=== PATIENT | female | born 1960 | race Caucasian/White ===

== ENCOUNTER → 2020-04-03 11:49 | Outpatient (CLI) | payer OTHER, SELFPAY ==
--- NOTE | ~2020-04-03 | US_ITS ---
EXAMINATION: US thyroid DATE: 04/03/2020 12:10 INDICATION: Autoimmune thyroiditis TECHNIQUE: Multiple ultrasound images of the thyroid were obtained. COMPARISON: None. FINDINGS: The right thyroid lobe measures 2.5 x 0.8 x 0.8 cm. The left thyroid lobe measures 1.9 x 1.0 x 1.0 c m. No discrete nodules identified. There is coarsened echogenicity with normal vascular flow through out both thyroid lobes. IMPRESSION: 1. Small thyroid with coarsened echogenicity consistent with sequela of chronic thyroiditis. Reviewed, dictated and finalized at location A.
== END ==
PROVIDERS: PCP Nurse Practitioner Family; Visit Provider Nurse Practitioner Family
DX: E06.3 Autoimmune thyroiditis (principal)
CPT/HCPCS: 76536

== ENCOUNTER → 2020-11-05 10:21 | Outpatient (CLI) | payer OTHER, SELFPAY ==
--- NOTE | ~2020-11-05 | US_ITS ---
EXAMINATION: US abdomen limited DATE: 11/05/2020 10:52 INDICATION: Elevated liver enzymes TECHNIQUE: Multiple grayscale and Doppler ultrasound images of the abdomen were obtained. COMPARISON: None available FINDINGS: Bowel gas obscures visualization of the pancreas. The visualized portions of the pancreas a re unremarkable. The liver demonstrates increased echogenicity, heterogenous echotexture, and decreas ed through transmission. No surface nodularity. Normal hepatopetal flow in the main portal vein. Ther e are multiple stones in the gallbladder. There is no gallbladder wall thickening or pericholecystic fluid. The normal common bile duct measures 4 mm. There was no sonographic Jane sign. IMPRESSION: 1. Cholelithiasis without evidence of cholecystitis. 2. Diffuse hepatic steatosis. Reviewed, dictated and finalized at location A. WASHER
== END ==
PROVIDERS: PCP Family Medicine; Visit Provider Family Medicine
DX: R74.01 Elevation of levels of liver transaminase levels (principal); K80.20 Calculus of gallbladder without cholecystitis without obstruction; K76.0 Fatty (change of) liver, not elsewhere classified
CPT/HCPCS: 76705

== ENCOUNTER → 2021-02-18 10:29 | Outpatient (CLI) | payer OTHER, SELFPAY ==
--- NOTE | ~2021-02-18 | MM_ITS ---
EXAMINATION: MM screening barbara BI w cathy HISTORY: Screening mammogram TECHNIQUE: Craniocaudal and mediolateral oblique 3-D tomosynthesis images were obtained and synthetic 2-D images were generated. Bilateral rotated lateral cc views CAD analysis was submitted and interpr eted. COMPARISON: 10/18/2018, , 03/04/2016 bilateral digital screening mammogram examinations BREAST PARENCHYMAL COMPOSITION: There are scattered areas of fibroglandular density. FINDINGS: Bilateral mammographic asymmetries. Bilateral diagnostic mammography and bilateral breast ultrasound examination are recommended. IMPRESSION: 1. Bilateral mammographic asymmetries 2. Bilateral diagnostic mammography and breast ultrasound examination are recommended BI-RADS Category 0: Incomplete: Needs additional imaging evaluation. Reviewed, dictated and finalized at location A. IMPRESSION: 1. Bilateral mammographic asymmetries 2. Bilateral diagnostic mammography and breast ultrasound examination are recom mended BI-RADS Category 0: Incomplete: Needs additional imaging evaluation.
--- NOTE | ~2021-02-18 | DEXA_ITS ---
Bone Density Report Name: Francine Loera Age: 60 Sex: Female Ethnicity: White Date of : 1960 Indication: postmenopausal; screening for osteoporosis; height loss; Referring Provider: Teetee Lindsey Study: Bone densitometry was performed. Exam Date: February 18, 2021 Accession number: [id number] Bone Density: Region BMD T-score Z-score Classification AP Spine (L2, L3, L4) 1.025 -0.5 0.9 Normal Femoral Neck (Left) 0.793 -0.5 0.7 Normal Total Hip (Left) 0.990 0.4 1.3 Normal Femoral Neck (Right) 0.805 -0.4 0.8 Normal Total Hip (Right) 0.959 0.1 1.0 Normal Total Hip Mean 0.975 0.3 1.2 Normal World Health Organization criteria for BMD impression classify patients as: Normal (T-score at or above -1.0), Osteopenia (T-score between -1.0 and -2.5), or Osteoporosis (T-score at or below -2.5). 10-year Fracture Risk: FRAX not reported because: All T-scores for Spine Total, Hip Total, Femoral Neck at or above -1.0 Previous Exams: Region Exam Age BMD T-score BMD Change BMD Change Date g/cm2 vs Baseline vs Previous AP Spine(L2, L3, L4) 02/18/2021 60 1.025 -0.5 -0.044* 0.038* 02/15/2019 58 0.987 -0.8 -0.082* -0.061* 06/19/2016 56 1.047 -0.3 -0.022 -0.022 06/17/2014 54 1.069 -0.1 Total Hip(Left) 02/18/2021 60 0.990 0.4 -0.065* 0.021 02/15/2019 58 0.968 0.2 -0.086* -0.015 06/19/2016 56 0.984 0.3 -0.071* -0.071* 06/17/2014 54 1.054 0.9 Total Hip(Right) 02/18/2021 60 0.959 0.1 -0.058* 0.000 02/15/2019 58 0.960 0.1 -0.058* -0.017 06/19/2016 56 0.976 0.3 -0.041* -0.041* 06/17/2014 54 1.017 0.6 *Denotes significance at 95% confidence level, LSC for AP Spine = 0.022 g/cm2, LSC for Total Hip = 0.027 g/cm2 Clinical Information Provided by Patient: Has used the following medications: Vitamin D, Calcium, MTV, Levothyroxine Patient maximum height was 66.0 Menopause Age: 57 Onset of menses at age 13 Number of children 0 Impression: The patient has normal bone mass. No significant bone loss was observed. Discussion: BONE DENSITY IS ABOVE THE MINIMUM DESIRABLE LEVEL AT ALL SKELETAL SITES TESTED. This patient?s bone mineral density is above the minimum desirable level (T-score -1.0 or better) at all sites measured. The patient should follow a hea
== END ==
PROVIDERS: PCP Nurse Practitioner Family; Visit Provider Student in an Organized Health Care Education/Training Program
DX: Z12.31 Encounter for screening mammogram for malignant neoplasm of breast (principal); Z13.820 Encounter for screening for osteoporosis; Z78.0 Asymptomatic menopausal state; R92.8 Other abnormal and inconclusive findings on diagnostic imaging of breast
CPT/HCPCS: 77063; 77067; 77080

== ENCOUNTER → 2021-03-25 07:51 | Outpatient (CLI) | payer OTHER, SELFPAY ==
--- NOTE | ~2021-03-25 | MMUS_ITS ---
EXAMINATION: MM diagnostic barbara BI w cathy, US breast BI complete HISTORY: Follow-up breast asymmetries TECHNIQUE: Additional 3-D tomosynthesis images of the breasts were performed and synthetic 2-D images were generated. CAD analysis was submitted and interpreted. High resolution complete bilateral breas t ultrasound was performed. COMPARISON: Comparison to multiple prior studies sequentially, with oldest reviewed study dated 12/2015. BREAST PARENCHYMAL COMPOSITION: Breast composed of scattered areas of fibroglandular density. FINDINGS: MAMMOGRAPHIC FINDINGS: There are persistent scattered bilateral nodular densities in both breasts which are partially obscur ed by fibroglandular tissue. No suspicious calcifications or architectural distortion. ULTRASOUND: Right breast ultrasound: At 12:00, 1 cm from the nipple there is a 4 mm cyst. Near the arterial lobe there is a 4 mm cyst. At 11:00, 1 cm from the nipple, there is an irregular shaped hypoechoic mass me asuring 6 x 4 x 2 mm. Left breast ultrasound: At 1:00, 3 cm from the nipple, there is a 4 mm cyst. At 6:00, 3 cm from the n ipple, there is an oval circumscribed hypoechoic mass measuring 5 mm with parallel orientation, no po sterior features or internal vascularity, likely benign. IMPRESSION: 1. Irregular shaped hypoechoic 6 mm right breast mass at 11:00, 1 cm from the nipple. Ultrasound-guid ed right breast biopsy recommended. 2. Probable benign left breast mass at 6:00, 3 cm from the nipple. Six-month follow-up left breast ul trasound recommended. BI-RADS CATEGORY 4-SUSPICIOUS ABNORMALITY RECOMMENDATION: Ultrasound-guided right breast biopsy recommended. Reviewed, dictated and finalized at location A. IMPRESSION: 1. Irregular shaped hypoechoic 6 mm right breast mass at 11:00, 1 cm from the n ipple. Ultrasound-guided right breast biopsy recommended. 2. Probable benign left breast mass at 6:00, 3 cm from the nipple. Six-month fo llow-up left breast ultrasound recommended. BI-RADS CATEGORY 4-SUSPICIOUS ABNORMALITY RECOMMENDATION: Ultrasound-guided right breast biopsy recommended.
== END ==
PROVIDERS: PCP Nurse Practitioner Family; Visit Provider Student in an Organized Health Care Education/Training Program
DX: R92.8 Other abnormal and inconclusive findings on diagnostic imaging of breast (principal)
CPT/HCPCS: 76641; 77062; 77066; G0279

== ENCOUNTER 2023-02-17 08:03 | Outpatient (CLI) | payer OTHER, SELFPAY ==
[2023-02-17 09:01] LABS: Kit Draw Collected
== END 2023-02-17 08:04 | disposition home or self-care (01) ==
LOC: ANHGOSHLAB 08:09
PROVIDERS: PCP Family Medicine; Visit Provider Nurse Practitioner
DX: Z13.6 Encounter for screening for cardiovascular disorders (principal); Z13.220 Encounter for screening for lipoid disorders; E55.9 Vitamin D deficiency, unspecified
CPT/HCPCS: 36415

== ENCOUNTER 2023-07-20 08:00 | Outpatient (CLI) | payer OTHER, SELFPAY ==
[2023-07-21 11:15] LABS: Kit Draw Collected
== END 2023-07-20 08:01 | disposition home or self-care (01) ==
PROVIDERS: PCP Family Medicine; Visit Provider Family Medicine
DX: E06.3 Autoimmune thyroiditis (principal); E66.9 Obesity, unspecified; E78.5 Hyperlipidemia, unspecified; R73.03 Prediabetes; Z79.899 Other long term (current) drug therapy
CPT/HCPCS: 36415

== ENCOUNTER 2023-12-03 08:09 | Outpatient (CLI) | payer OTHER, SELFPAY ==
[2023-12-03 14:40] LABS: Kit Draw Collected
== END 2023-12-03 08:10 | disposition home or self-care (01) ==
PROVIDERS: PCP Family Medicine; Visit Provider Nurse Practitioner
DX: E06.3 Autoimmune thyroiditis (principal); E78.5 Hyperlipidemia, unspecified; R73.03 Prediabetes
CPT/HCPCS: 36415

== ENCOUNTER 2024-05-19 09:07 | Outpatient (CLI) | payer OTHER, SELFPAY ==
[2024-05-19 13:54] LABS: Alanine Aminotransferase 101 U/L (6-35); Albumin Level 4.4 g/dL (3.5-5.1); Alkaline Phosphatase 109 U/L (38-126); Anion Gap 10 mmol/L (4-12); Aspartate Amino Transferase 73 U/L (14-36); Blood Urea Nitrogen 15 mg/dL (7-17); Calcium 9.5 mg/dL (8.4-10.2); Carbon Dioxide 28 mmol/L (22-30); Chloride 100 mmol/L (98-107); Cholesterol 188 mg/dL (0-200); Estimated Glomerular Filt Rate > 60; Glucose 143 mg/dL (65-110); HDL Direct 47 mg/dL; Potassium 4.3 mmol/L (3.4-5.0); Sodium 138 mmol/L (137-145); Triglycerides 242 mg/dL (<150)
[2024-05-19 14:04] LABS: LDL Cholesterol Direct 107 mg/dL
[2024-05-19 14:35] LABS: Vitamin D 25 Hydroxy 36.6 ng/mL
[2024-05-19 14:35] LABS: Creatinine Urine 188.1 mg/dL
[2024-05-19 14:36] LABS: MALB Creatinine Ratio 11.6 mg/g (0-30); Microalbumin Urine Random 21.8 mg/L (0-16.7)
[2024-05-19 18:20] LABS: Hemoglobin A1C 7.1 % (<5.7)
== END 2024-05-19 09:08 | disposition home or self-care (01) ==
LOC: ANHGOSHLAB 09:09
PROVIDERS: PCP Family Medicine; Visit Provider Nurse Practitioner
DX: E06.3 Autoimmune thyroiditis (principal); E11.9 Type 2 diabetes mellitus without complications; E55.9 Vitamin D deficiency, unspecified; E78.5 Hyperlipidemia, unspecified
CPT/HCPCS: 36415; 80053; 80061; 82043; 82306; 83036; 84443

== ENCOUNTER 2024-11-10 07:09 | Day surgery (SDC) | payer OTHER, SELFPAY ==
[2024-09-28 14:46] VITALS: BMI 38.8
[2024-10-21 08:17] VITALS: BMI 38.2
--- NOTE | 2024-11-10 07:05 | P.HPUP_ITS ---
History and Physical Update Update Date/Time: 11/10/24 07:05 Patient seen and examined in pre-operative holding area. No interval change in medical history or symptoms. Patient recalls previous discussion of benefits and alternatives to procedure. Continues to desire to proceed with left lower eyelid lesion/mass excision and forehead lesion/mass excision. Reviewed procedure, post-op expectations and risks including but not limited to bleeding, infection, injury to nerve/vessel, vision changes or damage to eye or lacrimal duct, recurrence no change or worsening of symptoms. I discussed the possible use of assistants and their participation in the case. Patient stated underst anding and signed the consent form wishing to proceed.
--- NOTE | 2024-11-10 07:07 | PM.HPGS ---
History of Present Illness History of Present Illness Chief complaint: Mass Right Forehead, Lesion Left Lower Eyelid Narrative: Patient seen and examined in pre-operative holding area. No interval change in medical history or symptoms. Patient recalls previous discussion of benefits and alternatives to procedure. Continues to desire to proceed with left lower eyelid lesion/mass excision and forehead lesion/mass excision. Reviewed procedure, post-op expectations and risks including but not limited to bleeding, infection, injury to nerve/vessel, vision changes or damage to eye or lacrimal duct, recurrence no change or worsening of symptoms. I discussed the possible use of assistants and their participation in the case. Patient stated understanding and signed the consent form wishing to proceed. Review of Systems Review of Systems: All systems reviewed & are unremarkable except as noted in HPI and below PMFSH Past Medical History Medical History Allergies Abnormal Pap smear of cervix 11/16/20 ASCUS HPV neg Fatty liver Acid reflux Gallstones Gregory's disease Surgical History Surgical History History of nasal surgery History of tonsillectomy History of appendectomy Family History Family History Sibling Family history of thyroid disease Family history of migraine headaches Hypertension Asthma Grandparent Family history of thyroid disease Diabetes mellitus, Onset Age: 73 Hypertension Mother Diabetes mellitus Hypertension Cerebrovascular accident Father Hypertension, Onset Age: 74 Malignant neoplasm of prostate, Onset Age: 74 Alcohol abuse Social History Social History Smoking status: Never smoker Second hand tobacco smoke exposure: Yes Alcohol intake: current Drinks per week: 2 Substance use: never Substance use type: does not use Lack of Transportation: No Lack of Food: Never True Current Housing: I Have Housing Concerned About Future Housing: No Difficulty Paying Gas/Electric Bills: No Difficulty Paying for Meds: No Currently Unemployed: No Education: Master's Degree or Higher Difficulty w/ Childcare or Family Care: No Living arrangements: with family Additional living arrangements comments: and Mother Occupation/Education: retired Gender identity (if verbalized by the patient): Female Sexual Orientation (if Verbalized by the Patient): Straight or Heterosexual Spiritual care concerns: No Agree to blood products: Yes Meds Home Medications and Allergies Home Medications ?Medication ?Instructions ?Recorded ?Confirmed ?Type cetirizine 10 mg tablet (24Hour 10 mg PO DAILY 10/25/19 11/10/24 History Allergy) omega-3 fatty acids 1,000 mg 1,000 mg PO DAILY 10/25/19 11/10/24 History capsule (Fish Oil Concentrate) multivitamin (Daily Multi-Vitamin 1 tablet PO DAILY 11/16/20 11/10/24 History tablet) apple cider vinegar 300 mg tablet 480 mg PO .QD 07/21/22 11/10/24 History vitamin E (dl, acetate) 180 mg 180 mg PO DAILY 07/21/22 11/10/24 History (400 unit) capsule antiarthritic combination no.2 900 200 mg PO .daily 02/24/23 11/10/24 History mg tablet (glucosamine-chondroitin) pantoprazole 40 mg tablet,delayed 40 mg PO QAM #90 tabs 09/06/24 11/10/24 Rx release levothyroxine 137 mcg tablet See Rx Instructions .Route 09/19/24 11/10/24 Rx .COMPLEX #90 tabs metformin 500 mg tablet,extended See Rx Instructions .Route 09/19/24 11/10/24 Rx release 24 hr .COMPLEX #90 tabs azelastine 137 mcg-fluticasone 50 1 spray intranasal BID PRN allergy 10/21/24 11/10/24 History mcg/spray nasal spray symptoms inulin 1.5 gram chewable tablet 1.5 g PO DAILY 10/21/24 11/10/24 History tramadol 50 mg tablet 50 mg PO Q6H PRN pain #12 tabs 11/10/24 Rx Allergies Allergy/AdvReac Type Severity Reaction Status Date / Time erythromycin base Allergy Severe Gastrointestinal Verified 11/10/24 07:38 Upset Exam Narrative: unchanged Assessment and Plan Assessment and plan (1) Cyst of eyelid: Qualifiers: Eyelid: lower Laterality: left Qualified Code(s): H02.825 - Cysts of left lower eyelid Code(s): H02.829 - Cysts of unspecified eye, unspecified eyelid Status: Acute Assessment and Plan: cont as above (2) Skin neoplasm: Code(s): D49.2 - Neoplasm of unspecified behavior of bone, soft tissue, and skin Status: Acute (3) Neoplasm of uncertain behavior of skin: Code(s): D48.5 - Neoplasm of uncertain behavior of skin Status: Acute
--- NOTE | 2024-11-10 07:07 | W.PM.PROC2 ---
Procedure Note - Detailed Date of Procedure 11/10/24 Pre-op Diagnosis Mass Right Forehead, Lesion Left Lower Eyelid Post-op Diagnosis Same Procedure Performed excision left lower eyelid lesion and forehead lesion/mass Surgeon Miguel Morales MD Roofing Sales Representative jaime alamo pa-c Anesthesia MAC Description of Procedure Patient was seen in the preoperative holding area where the area of the forehead lesion and left lower medial eyelid cyst was marked. Consent form was signed. Patient was taken back to the operating room and placed on the stretcher in the supine position. Time-out was performed with Anesthesia, surgeon, and staff agreeing on patient's name, sites, and surgery to be performed. SCDs were placed on the lower extremities and inflated. Antibiotics were given IV. After anesthesia administered sedation I injected 4 cc of 1% lidocaine with epinephrine and 0.5% Marcaine plain amongst the 2 sites. I took my attention to the forehead where I made an elliptical incision around the protuberant mass through skin and dermis with a 15 blade scalpel. No subcutaneous component was identified and the mass was excised completely. bipolar cautery used for hemostasisThe Excess skin was excised from the medial and lateral edges for removal of dog ears. I undermined the skin edges. Closure was done with 5-0 Monocryl for dermis and subcuticular closure. diameter of lesion excision with margins was 1.1cm. length of closure 1.5cm Next I took my attention to the left medial lower eyelid cyst where I proceeded with making an elliptical incision around the thinned affected skin at base of the cyst through skin and dermis with a 15 blade scalpel. The lesion was removed this level and appeared to be above orbicularis muscle and no clear stalk identified. thin watery fluid was found withing the mass on excision. I attempted to use lacrimal probes to interrogate the inferior canaliculus but was either unsuccessful in passing the probe through the duct or the duct was not patent. No clear tract or involvement of the lacrimal duct was therefore appreciated. Bipolar cautery was used to cauterize the base of this resection site for hemostasis. I irrigated with normal saline. Closure was done with 5 0 fast-absorbing gut suture. diameter of mass and excision measured 6mm. A dressing of Mastisol, Steri-Strips, 4 x 4 and pressure dressing was applied to the forehead. opthalmic bacitracin, 4 x 4 and pressure dressing was applied to the left lower eyelid. The patient was awakened from anesthesia and transferred to the recovery room in stable condition. Complications: None Estimated blood loss: 2 cc Disposition: Patient tolerated the procedure well and will be going home later today. Jaime Alamo PA-C was essential for positioing, retraction, closure and dressing placement [facility] [place] Billing Surgery - Charge Forward: Surgery Billing ([id number] same for jaime adding modifier )
--- OUTSIDE RECORDS SUMMARY | 2024-11-10 07:28 | XMS_ITS | Referral Summary ---
Author Organization [facility] Address [address] [place] [address] Care Team Providers Care Account Solutions Analyst Name Role Phone LorenzoRadha APRN-MACHINE SET UP OPERATOR Primary Care Provider Source Comments [facility],non-owned Affiliates and Associated Physician Practices is amultiple site organization consisting of ambulatory clinics and hospital sitesin [place], [place], [place] and [place]. This disclosure is being madepursuant to the Care Everywhere program and may not contain all information available regarding this patient. Last updated 18.[facility] Allergies Active Allergy Reactions Criticality Noted Date Comments Cetirizine Hcl 07/23/2011 Erythromycin 01/01/2011 (?), (?), (?) Medications * Be aware that medications may not be up to date on this document. Alwaysverify current medications with the patient. Medication Sig Dispensed Refills Start Date End Date Status azelastine-fluticason e (DYMISTA) 137-50 MCG/ACT nasal spray [place] 1 puff into the nose BID. 1 bottles 1 06/23/2017 Active loratadine (CLARITIN) 10 MG tablet Take 10 mg by mouth DAILY. 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 Metabolic syndrome X 09/14/2019 Nasal congestion 05/08/2015 Chronic sinusitis 01/01/2011 Social History Tobacco Use Types Packs/Day Years Used Date Smoking Tobacco: Never Smokeless Tobacco: Never Alcohol Use Standard Drinks/Week Comments Yes 0 (1 standard drink = 0.6 oz pur e alcohol) Sex and Gender Information Value Date Recorded Sex Assigned at Not on file Gender Identity Not on file Sexual Orientation Not on file Last Filed Vital Signs Vital Sign Reading Time Taken Comments Blood Pressure 128/80 09/14/2019 2:40 PM STEEL FABRICATOR Pulse 92 09/14/2019 2:40 PM STEEL FABRICATOR Temperature - - Respiratory Rate 12 05/08/2015 9:14 AM CDT Oxygen Saturation 95% 09/14/2019 2:40 PM STEEL FABRICATOR Inhaled Oxygen Concentration - - Weight 112.9 kg (249 lb) 09/14/2019 2:40 PM STEEL FABRICATOR Height 167.6 cm (5' 6 ) 09/14/2019 2:40 PM STEEL FABRICATOR Body Mass Index 40.19 09/14/2019 2:40 PM STEEL FABRICATOR Plan of Treatment Not on file Care Teams Account Solutions Analyst Relationship Specialty Start Date End Date Radha Lorenzo, CANCER PROGRAM CONSULTANT-MACHINE SET UP OPERATOR [address] [place] [phone] PCP - General 11/14/19
--- OUTSIDE RECORDS SUMMARY | 2024-11-10 07:28 | XMS_ITS | Patient Health Summary ---
Author Organization [facility] Address [address] [place] [address] Care Team Providers Care Cdl Instructor Name Role Phone BjRadha APRN-HAND BOOKBINDER Primary Care Provider Note from [facility],non-owned Affiliates and Associated Physician Practices is amultiple site organization consisting of ambulatory clinics and hospital sitesin [place], [place], [place] and [place]. This disclosure is being madepursuant to the Care Everywhere program and may not contain all information available regarding this patient. Last updated 18.[facility] Allergies * Cetirizine Hcl * Erythromycin((?), (?), (?)) Medications * Be aware that medications may not be up to date on this document. Alwaysverify current medications with the patient. * azelastine-fluticasone (DYMISTA) 137-50 MCG/ACT nasal spray(Started 06/23/2017) [place] 1 puff into the nose BID. 1 refill left * loratadine (CLARITIN) 10 MG tablet(Started 06/23/2017) Take 10 mg by mouth DAILY. * Fexofenadine-Pseudoephedrine (JOSE-D 24 HOUR PO) Take 1 tablet by mouth once daily Active Problems Problem Noted Date Diagnosed Date [...] Comments Blood Pressure 128/80 09/14/2019 2:40 PM MUD MILL TENDER Pulse 92 09/14/2019 2:40 PM MUD MILL TENDER Temperature - - Respiratory Rate 12 05/08/2015 9:14 AM CDT Oxygen Saturation 95% 09/14/2019 2:40 PM MUD MILL TENDER Inhaled Oxygen Concentration - - Weight 112.9 kg (249 lb) 09/14/2019 2:40 PM MUD MILL TENDER Height 167.6 cm (5' 6 ) 09/14/2019 2:40 PM MUD MILL TENDER Body Mass Index 40.19 09/14/2019 2:40 PM MUD MILL TENDER Procedures * PATHOLOGY/GENETICS HISTORICAL-ONBASE(Performed 07/19/2009) * PATHOLOGY/GENETICS HISTORICAL-ONBASE(Performed 07/19/2009) Results * PATHOLOGY/GENETICS HISTORICAL-ONBASE (07/19/2009) Only the most recent of2 resultswithin the time period is included. 07/19/2009 Historical Provider LAB - CHEMISTRY O RDERABLES [facility] Care Teams Cdl Instructor Relationship Specialty Start Date End Date Radha Lorenzo, RESTAURANT ATTENDANT-HAND BOOKBINDER [address] [place] [address] PCP - General 11/14/19
--- OUTSIDE RECORDS SUMMARY | 2024-11-10 07:29 | XMS_ITS | Continuity of Care Document ---
Author Organization [facility] Address [address] [place] [address] Phone Care Team Providers Care Automotive Diagnostic Technician Name Role Phone Karena Johnson Unavailable Unavailable Advance Directives Directive Yes / No Effective Date File Name No Information Encounters Encounter Description Practice Location Reason(s) For Visit Diagnoses Date Provider Providers Copied on Encounter [facility], [address], [place], [place], [id number], [place] tel:[phone] [facility] No Information Mar-1 0-200 3 Elizabeth Thurston. [address] , [address], [place], [address], [place]. tel:[phone] Family History Family Member Type Diagnosis Age At Onset No Information Payers Payer name Insurance type Covered republican ID Authoriza tion(s) No Information Social History Type Description Quantity Date Captured Comments Sex Female Smoking Status No Information Chief Complaint And Reason For Visit No Information Reason For Referral Reason For Referral No Information History Of Present Illness Encounter Date Complaint History Of Prese nt Illness No Information Functional Status Date Functional Assessmen t No Information Instructions Date Instruction Additional Infor mation No Information Assessments Type Assessment Date No Information Patient Care Teams Name Effective Dates (start - stop) Status Members No Information
--- OUTSIDE RECORDS SUMMARY | 2024-11-10 07:29 | XMS_ITS | Clinical Summary ---
Author Organization [facility] Address [address] [place] [address] Care Team Providers Care Geological Science Teacher Name Role Phone LorenzoRadha APRN-HOUSETRAILER SERVICER Primary Care Provider Source Comments [facility],non-owned Affiliates and Associated Physician Practices is amultiple site organization consisting of ambulatory clinics and hospital sitesin [place], [place], [place] and [place]. This disclosure is being madepursuant to the Care Everywhere program and may not contain all information available regarding this patient. Last updated 18.[facility] [email or web address] Allergies Active Allergy Reactions Criticality Noted Date Comments Cetirizine Hcl 07/23/2011 Erythromycin 01/01/2011 (?), (?), (?) Medications * Be aware that medications may not be up to date on this document. Alwaysverify current medications with the patient. Medication Sig Dispensed Refills Start Date End Date Status azelastine-fluticason e (DYMISTA) 137-50 MCG/ACT nasal spray [place] 1 puff into the nose BID. 1 [...] Comments Blood Pressure 128/80 09/14/2019 2:40 PM PEST MANAGEMENT SUPERVISOR Pulse 92 09/14/2019 2:40 PM PEST MANAGEMENT SUPERVISOR Temperature - - Respiratory Rate 12 05/08/2015 9:14 AM CDT Oxygen Saturation 95% 09/14/2019 2:40 PM PEST MANAGEMENT SUPERVISOR Inhaled Oxygen Concentration - - Weight 112.9 kg (249 lb) 09/14/2019 2:40 PM PEST MANAGEMENT SUPERVISOR Height 167.6 cm (5' 6 ) 09/14/2019 2:40 PM PEST MANAGEMENT SUPERVISOR Body Mass Index 40.19 09/14/2019 2:40 PM PEST MANAGEMENT SUPERVISOR Plan of Treatment Health Maintenance Due Date Last Done Comments COLOGUARD (AGES 45-75) - COL ON CA SCREENING 1962 COLON MONITORING 1962 COLONOSCOPY - COLON CA SCREENING 1962 CT COLONOGRAPHY - COLON CA SCREENING 1962 Colorectal Cancer Screening 1962 FIT - COLON CA SCREENING 1962 FLEX SIG - COLON CA SCREENING 1962 LIPID TESTING 1962 MAMMOGRAM 1962 PAP SMEAR 1962 HIV SCREENING 1977 HEPATITIS C SCREENING 03/23/1980 DTAP/TDAP/TD VACCINES (1 - Tdap) 1981 PNEUMOCOCCAL VACCINE 50+ (1 of 1 - PCV) 2012 ZOSTER VACCINE (1 of 2) 2012 SCREENING FOR DIABETES 09/14/2019 Respiratory Syncytial Virus (RSV) Vaccine Pt: or over 60 yrs (1 - Risk 60-74 years 1-dose series) 2022 COVID-19 VACCINE (1 - 2023-2 5 season) 2024 INFLUENZA VACCINE (#1) 2024 DEPRESSION SCREENING 08/31/2024 HEPATITIS B VACCINE Aged Out No longe r eligible based on patient's age to complete this topic HIB VACCINE Aged Out No longer eligi ble based on patient's age to complete this topic HPV VACCINE Aged Out No longer eligi ble based on patient's age to complete this topic MENINGOCOCCAL (Group B) VACC INE SHARED DECISION-MAKING Aged Out No longer eligibl e based on patient's age to complete this topic MENINGOCOCCAL GROUPS A/C/Y/W VACCINE Aged Out No longer eligible b ased on patient's age to complete this topic PNEUMOCOCCAL VACCINE Aged Out No long er eligible based on patient's age to complete this topic Care Teams Geological Science Teacher Relationship Specialty Start Date End Date Radha Lorenzo, MOLDED CANDLES WICKER-HOUSETRAILER SERVICER [address] [place] [address] PCP - General 11/14/19
[2024-11-10 07:42] VITALS: BP 146/85; PULSE 99; RESP 16; TEMP 36.4; O2SAT 96
[2024-11-10 08:00] LABS: Glucose Point of Care 138 mg/dl (65-105)
[2024-11-10] MEDS: LACTATED RINGERS 1,000 ML 30 ML IV CONT (08:45)
--- NOTE | 2024-11-10 08:58 | WPDANESEPPF ---
Anes - Initial Pre Proc Eval Procedure: Operation Date: 11/10/24 09:00 Proposed Procedures p Excision Mass Right Forehead; Excision Lesion Left Lower Eyelid - Miguel Morales MD Date/Time: 11/10/24 08:58 Surgeon: Miguel Morales MD Pre Op Diagnosis: Mass Right Forehead, Lesion Left Lower Eyelid Patient Data Age: 64 Gender: F Height: 1.65 m Weight: 107.35 kg Last Vital Signs Temp 36.4 C L 11/10/24 07:42 Pulse 99 11/10/24 07:42 Resp 16 11/10/24 07:42 BP 146/85 H 11/10/24 07:42 Pulse Ox 96 11/10/24 07:42 O2 Del Method Room Air 11/10/24 07:42 Allergies Allergy/AdvReac Type Severity Reaction Status Date / Time erythromycin base Allergy Severe Gastrointestinal Verified 11/10/24 07:38 Upset Home Medications ?Medication ?Instructions ?Recorded ?Confirmed ?Type cetirizine 10 mg tablet (24Hour 10 mg PO DAILY 10/25/19 11/10/24 History Allergy) omega-3 fatty acids 1,000 mg 1,000 mg PO DAILY 10/25/19 11/10/24 History capsule (Fish Oil Concentrate) multivitamin (Daily Multi-Vitamin 1 tablet PO DAILY 11/16/20 11/10/24 History tablet) apple cider vinegar 300 mg tablet 480 mg PO .QD 07/21/22 11/10/24 History vitamin E (dl, acetate) 180 mg 180 mg PO DAILY 07/21/22 11/10/24 History (400 unit) capsule antiarthritic combination no.2 900 200 mg PO .daily 02/24/23 11/10/24 History mg tablet (glucosamine-chondroitin) pantoprazole 40 mg tablet,delayed 40 mg PO QAM #90 tabs 09/06/24 11/10/24 Rx release levothyroxine 137 mcg tablet See Rx Instructions .Route 09/19/24 11/10/24 Rx .COMPLEX #90 tabs metformin 500 mg tablet,extended See Rx Instructions .Route 09/19/24 11/10/24 Rx release 24 hr .COMPLEX #90 tabs azelastine 137 mcg-fluticasone 50 1 spray intranasal BID PRN allergy 10/21/24 11/10/24 History mcg/spray nasal spray symptoms inulin 1.5 gram chewable tablet 1.5 g PO DAILY 10/21/24 11/10/24 History tramadol 50 mg tablet 50 mg PO Q6H PRN pain #12 tabs 11/10/24 Rx Laboratory Tests 11/10/24 07:55 POC Capillary Glucose 138 H mg/dl (65-105) Patient hx anesthesia problems: none Family hx anesthesia problems: none Results Review: All pre-operative results and documents have been reviewed as part of the pre-operative evaluation. [facility] Past Medical History Medical History Allergies Abnormal Pap smear of cervix 11/16/20 ASCUS HPV neg Fatty liver Acid reflux Gallstones Gregory's disease Surgical History Surgical History History of nasal surgery History of tonsillectomy History of appendectomy Family History Family History Sibling Family history of thyroid disease Family history of migraine headaches Hypertension Asthma Grandparent Family history of thyroid disease Diabetes mellitus, Onset Age: 73 Hypertension Mother Diabetes mellitus Hypertension Cerebrovascular accident Father Hypertension, Onset Age: 74 Malignant neoplasm of prostate, Onset Age: 74 Alcohol abuse Social History Social History Smoking status: Never smoker Second hand tobacco smoke exposure: Yes Alcohol intake: current Drinks per week: 2 Substance use: never Substance use type: does not use Lack of Transportation: No Lack of Food: Never True Current Housing: I Have Housing Concerned About Future Housing: No Difficulty Paying Gas/Electric Bills: No Difficulty Paying for Meds: No Currently Unemployed: No Education: Master's Degree or Higher Difficulty w/ Childcare or Family Care: No Living arrangements: with family Additional living arrangements comments: and Mother Occupation/Education: retired Gender identity (if verbalized by the patient): Female Sexual Orientation (if Verbalized by the Patient): Straight or Heterosexual Spiritual care concerns: No Agree to blood products: Yes Anes - Eval Final PreProcedure Day of Procedure 11/10/24 08:58 Patient weight: obese Heart: regular rate and rhythm Lungs: clear to auscultation Airway: Mallampati scale class III Neurological: alert and oriented Last oral intake: >/= 8 hours ASA classification: III Emergent: no Anesthetic plan: proceed Anesthesia type and monitoring: general GIVS and standard monitoring Results Review: All pre-operative results and documents have been reviewed as part of the pre-operative evaluation. Informed Consent: The patient's anesthetic plan and its attendant risks and benefits were discussed with the patient/family/POA. Questions were solicited and answers provided to the satisfaction of the patient/family/POA.
[2024-11-10] MEDS: ceFAZolin SODIUM 2 GM/20 ML SW SYRINGE IV PUSH (09:09)
[2024-11-10] MEDS: LIDO 1%/EPINEPHRINE 1:100,000 10 ML VIAL 2 ML INFILTRATE (09:15)
[2024-11-10] MEDS: BUPivacaine HCL 0.5% 10 ML AMP 2 ML INFILTRATE (09:15)
[2024-11-10] MEDS: NEOMYCIN/POLYMYXIN/DEXAMETH OP OINT 3.5 GM TUBE 1 APPLIC AFFCTD EYE (09:38)
[2024-11-10 09:44] VITALS: BP 125/75; PULSE 90; RESP 16; O2SAT 94
[2024-11-10 09:54] VITALS: BP 118/74; PULSE 86; RESP 15; O2SAT 94
--- NOTE | 2024-11-10 09:54 | WPDANESPN ---
Anes - Prog Note Post-Op Date/Time: 11/10/24 09:54 Cardiovascular status: normal Respiratory status: normal Airway patency: baseline Mental status: baseline Post-Op hydration status: normal Vital Signs: Last Vital Signs Temp 36.4 C L 11/10/24 07:42 Pulse 99 11/10/24 07:42 Resp 16 11/10/24 07:42 BP 146/85 H 11/10/24 07:42 Pulse Ox 96 11/10/24 07:42 O2 Del Method Room Air 11/10/24 07:42 Pain Score (VAS): 0 11/10/24 07:55 POC Capillary Glucose 138 H Patient Feedback: Patient satisfied with anesthetic care.
[2024-11-10 10:04] VITALS: BP 129/74; PULSE 82; RESP 14; O2SAT 98
[2024-11-10 10:14] VITALS: BP 141/80; PULSE 79; RESP 15; O2SAT 96
== END 2024-11-10 10:33 | disposition home or self-care (01) ==
PROVIDERS: PCP Nurse Practitioner; Visit Provider Plastic Surgery
PROC: (CPT 11442; principal; 2024-11-10 09:00)
DX: D18.01 Hemangioma of skin and subcutaneous tissue (principal); D23.122 Other benign neoplasm of skin of left lower eyelid, including canthus
CPT/HCPCS: 11442; 12051; 11441

== ENCOUNTER 2024-11-10 11:27 | Outpatient (NON) | payer OTHER, SELFPAY ==
--- OUTSIDE RECORDS SUMMARY | 2024-11-11 08:24 | XMS_ITS | Encounter Summary ---
Author Organization [facility] Address [address] [place] [address] Phone Care Team Providers Care Research Food Technologist Name Role Phone Teetee Lindsey MD Unavailable [phone] Radha Webb NP Primary Care Provider [phone] Encounter Details Date Type Department Care Team (Late st Contact Info) Description 10/28/2024 Telephone [facility] Surgery [address] [place] [address] Aft, Jamila Chris MD PhD [address] [place] [address] Social History Tobacco Use Types Packs/Day Years Used Date Smoking Tobacco: Never Alcohol Use Standard Drinks/Week Comments Yes 0 (1 standard drink = 0.6 oz pur e alcohol) Comments No Sex and Gender Information Value Date Recorded Sex Assigned at Not on file Legal Sex Female 10:58 AM INPATIENT AUDITOR Gender Identity Female 04/10/2021 1:17 PM CDT Sexual Orientation Straight 04/10/2021 1: 17 PM CDT documented as of this encounter Miscellaneous Notes * Telephone Encounter - Luis Antonio Cruz - 10/28/2024 11:29 AM CST Patient Query: Was an attempt to transfer to the assigned clinical staff or backline? no Reason for call?: Patient was calling to schedule her surgery with Dr. Horne- was expecting a call but wanted to make sure all was ok as she hadn't heard anything, I explained that its being worked on and that she wouldget a call once they were ready to schedule her. Who is the caller: Francine Loera What is the best number for them to contact for a call back: [phone] TIENT AUDITOR documented in this encounter Plan of Treatment Not on file documented as of this encounter Visit Diagnoses Not on filedocumented in this encounter Care Teams Research Food Technologist Relationship Specialty Start Date End Date Radha Webb NP [address] [address] PCP - General Internal Medicine 07/26/24 Teetee Lindsey MD [address] [address] Referring Physician Obstetrics and Gynecology 11/27/21 documented as of this encounter
--- OUTSIDE RECORDS SUMMARY | 2024-11-11 08:24 | XMS_ITS | Continuity of Care Document ---
Author Organization [facility] Address [address] [place] [address] Phone Care Team Providers Care Life Insurance Agent Name Role Phone Karena Johnson Unavailable Unavailable Advance Directives Directive Yes / No Effective Date File Name No Information Encounters Encounter Description Practice Location Reason(s) For Visit Diagnoses Date Provider Providers Copied on Encounter [facility], [address], [place], [place], [id number], [place] tel:[phone] [facility] No Information Mar-1 0-200 3 Elizabeth Thurston. [address] , [address], [place], [address], [place]. tel:[phone] Family History Family Member Type Diagnosis Age At Onset No Information Payers Payer name Insurance type Covered green party ID Authoriza tion(s) No Information Social History [...]
--- OUTSIDE RECORDS SUMMARY | 2024-11-11 08:24 | XMS_ITS | Clinical Summary ---
Author Organization [facility] Care Team Providers Care Carver And Checkerer Specials Name Role Phone Unavailable Primary Care Provider Unavailabl e Social History Tobacco Use Types Packs/Day Years Used Date Smoking Tobacco: Never Assessed Comments Unknown Sex and Gender Information Value Date Recorded Sex Assigned at Not on file Legal Sex Female 12:08 PM AUTO BODY SERVICE MECHANIC Gender Identity Not on file Sexual Orientation Not on file Plan of Treatment Health Maintenance Due Date Last Done Comments Hepatitis C Virus (HCV) Screening 1962 TdaP Immunization 1962 Pap Smear 1983 Cervical Cancer Screening (CCS) 1992 HPV/Cotest 1992 Colonoscopy 2007 Colorectal Cancer Screening 2007 Cologuard 2012 Immunochemical Fecal Occult Blood 2012 Mammogram 2012 Pneumococcal Immunization (5 0+ years) (1 of 1 - PCV) 2012 Zoster Immunization (1 of 2) 2012 Influenza Immunization (#1) 2024 06/19/2020 SARS-COV-2 Immunization ( - 2023-25 season) 2024 Respiratory Syncytial Virus (RSV) Immunization (Adult) (1 - 1-dose 75+ series) 2037 Hepatitis B Immunization Aged Out No longer eligible based on patient's age to complete this topic Meningococcal Immunization (ACWY) Aged Out No longer eligible based on patient's age to complete this topic Pneumococcal Immunization Combined Aged Out No longer eligible based on patient's age to complete this topic Rotavirus Immunization Aged Out No lo nger eligible based on patient's age to complete this topic
--- OUTSIDE RECORDS SUMMARY | 2024-11-11 08:24 | XMS_ITS | Clinical Summary ---
Author Organization [facility] Address [address] [place] [address] Care Team Providers Care Hourly Associate Name Role Phone Teetee Lindsey MD Unavailable [phone] Radha Webb NP Primary Care Provider [phone] Allergies Active Allergy Reactions Criticality Noted Date Comments Erythromycin Stomach upset Low 01/01/2011 (?), (?), (?) Medications loratadine 10 mg capsule 02/08/2005 Active xdlro-4-ssz-epa -dpa-fish oil 1,050-1,200 mg capsule 02/08/[address] (PROTONIX) 40 mg EC tablet Take 1 tablet (40 mg total) by mouth daily 03/27/2021 Active Euthyrox 137 mcg tablet Take 1 tablet (137 mcg total) by mouth daily 01/20/2021 Active apple cider vinegar 300 mg tablet 05/11/2020 Active vitamin E (AQUASOL E) 100 unit capsule Take 1 capsule (100 Units total) by mouth daily Active fish oil-dha-epa 1,200-144-216 mg capsule Take by mouth Active inulin (FIBER GUMMIES ORAL) Take by mouth Active multivit-minera ls/folic acid (MULTIVITAMIN GUMMIES ORAL) Take by mouth Active calcium carb-mag hydrox-simeth 1,200 mg-270 mg -80 mg/10 mL suspension Take by mouth Active metformin HCl (METFORMIN ORAL) Take by mouth Active Active Problems Problem Noted Date Diagnosed Date Abnormal mammogram 04/12/2021 Hypothyroidism 01/14/2014 Overview (12/06/2016): HYPOTHYROIDISM NOS Vitamin D deficiency 01/14/2014 Overview (12/06/2016): Vitamin D deficiency Encounters Date Type Department Care Team Description 10/28/2024 Telephone [facility] [address] [place] [address] [phone] Jamila Horne MD PhD 10/24/2024 3:00 PM FACER OPERATOR Office Visit [facility] [address] [place] [address] [phone] Jamila Horne MD PhD Ductal carcinoma in situ (DCIS) of right breast 10/20/2024 11:27 AM FACER OPERATOR - 10/20/2024 11:59 PM FACER OPERATOR Hospital Encounter [facility] ([facility]) [address] [place] [phone] Jamila Horne MD PhD Ductal carcinoma in situ (DCIS) of right breast Discharge Disposition: Discharge to home or self care 10/06/2024 Orders Only [facility] [address] [place] [address] [phone] Jamila Horne MD PhD Ductal carcinoma in situ (DCIS) of right breast (Primary Dx) 10/06/2024 Telephone [facility] ([facility]) [address] [place] [phone] Sofia Peters, VIVIAN Test Results (Right breast biopsy results ) 10/03/2024 12:56 PM FACER OPERATOR - 10/03/2024 11:59 PM FACER OPERATOR Hospital Encounter [facility] ([facility]) [address] [place] [phone] Abnormal mammogram Discharge Disposition: Discharge to home or self care 10/03/2024 11:57 AM FACER OPERATOR - 10/03/2024 11:59 PM FACER OPERATOR Hospital Encounter [facility] ([facility]) [address] [place] [phone] Abnormal mammogram Discharge Disposition: Discharge to home or self care 09/21/2024 Telephone [facility] ([facility]) [address] [place] [phone] Sonia Camargo RN 09/20/2024 12:23 PM FACER OPERATOR - 09/20/2024 11:59 PM FACER OPERATOR Hospital Encounter [facility] ([facility]) [address] [place] [phone] Abnormality of right breast on screening mammography Discharge Disposition: Discharge to home or self care 09/20/2024 12:23 PM FACER OPERATOR - 09/20/2024 11:59 PM FACER OPERATOR Hospital Encounter [facility] ([facility]) [address] [place] [phone] Abnormality of right breast on screening mammography Discharge Disposition: Discharge to home or self care 08/25/2024 10:20 AM FACER OPERATOR - 08/25/2024 11:59 PM FACER OPERATOR Hospital Encounter [facility] ([facility]) [address] [place] [phone] Screening mammogram, encounter for Discharge Disposition: Discharge to home or self care from Last 3 Months Immunizations Immunization Administration Dates Next Due Influenza, Quadrivalent, Spl it, Preservative Free, Intramuscular 06/19/2020 Pfizer SARS-CoV-2 Monovalent Vaccination (12+ Yrs) PURPLE 11/30/2020,11/09/2020 Surgical History Surgery Date Site/Laterality Comments APPENDECTOMY TONSILLECTOMY BREAST BIOPSY 10/03/2024 Right SINUS SURGERY 08/31/2004 - 08/30/2005 Medical History Medical History Date Comments Hx Other Medical DNS surgery Disorder of thyroid Thyroid dise ase Hx Other Medical Claustrophobic; Comments: GFC 04/25/2014 - Diabetes (HCC) Overweight Family History Medical History Relation Name Comments Prostate cancer Father Bladder Cancer Mother's Brother Melanoma Paternal Grandfather Skin cancer Paternal Grandfather Thyroid disease Sister Thyroid dise ase; Relation Name Status Comments Father Mother's Brother Paternal Grandfather Sister Social History Tobacco Use Types Packs/Day Years Used Date Smoking Tobacco: Never Tobacco Cessation:Counseling Given: Not Answered Alcohol Use Standard Drinks/Week Comments Yes 0 (1 standard drink = 0.6 oz pur e alcohol) Comments No Sex and Gender Information Value Date Recorded Sex Assigned at Not on file Legal Sex Female 10:58 AM FACER OPERATOR Gender Identity Female 04/10/2021 1:17 PM CDT Sexual Orientation Straight 04/10/2021 1: 17 PM CDT Obstetrics History Last Filed Vital Signs Vital Sign Reading Time Taken Comments Blood Pressure 110/74 04/25/2014 8:15 AM CDT Pulse 68 04/25/2014 8:15 AM CDT Temperature - - Respiratory Rate - - Oxygen Saturation - - Inhaled Oxygen Concentration - - Weight 107.8 kg (237 lb 9.6 oz) 10/24/2024 3:01 PM FACER OPERATOR Height 163 cm (5' 4.17 ) 10/24/2024 3:01 PM FACER OPERATOR Body Mass Index 40.56 10/24/2024 3:01 PM FACER OPERATOR Plan of Treatment Health Maintenance Due Date Last Done Comments Cervical Cancer Screening 1962 Colon Cancer Screening-Colonoscopy 1962 Depression Screening 1962 Hepatitis C Screening 1962 DTaP/Tdap/Td Vaccine (1 - Tdap) 1973 Hepatitis B Screening 1980 Regular Well Visit/Exam 18-64 1980 Zoster Vaccine (1 of 2) 2012 Covid-19 Vaccine (3 - 2023-2 5 season) 2024 11/30/2020, 11/09/2020 Influenza Vaccine (#1) 2024 06/19/2020 Breast Cancer Screening-Mammogram 08/25/2025 08/25/2024, 06/02/2023, 04/22/2022 Pneumococcal vaccine <65 Aged Out No longer eligible based on patient's age to complete this topic Medical Devices Implanted Type Area Manager Financial Planning Device Identifier Shelf Expiration Date Model / Serial / Lot Bard Peripheral Vascular Ultraclip Bard 17ga 10cm 2 Trigger Permanent Ultrasound [id number] - [id number] Implanted:Qty: 1 on 10/03/2024 by Corine Campuzano MD at [facility] Right: Breast [employer] Peripheral V[employer] [id number] / / Procedures Procedure Name Priority Date/Time Associated Diagnosis Comments MRI BREAST BILATERAL W WO CONTRAST Schedule Routine, Read Routine (OP Routine) 10/20/2024 12:46 PM FACER OPERATOR Ductal carcinoma in situ (DCIS) of right breast GUSTAVO POST CLIP PLACEMENT RIGHT Schedule Routine, Read Routine (OP Routine) 10/03/2024 1:40 PM FACER OPERATOR Abnormal mammogram US GUIDED BREAST BIOPSY RIGHT Schedule Routine, Read Routine (OP Routine) 10/03/2024 1:26 PM FACER OPERATOR Abnormal mammogram SURGICAL PATHOLOGY Routine 10/03/2024 1: 15 PM FACER OPERATOR Abnormal mammogram US BREAST RIGHT LIMITED Routine 09/20/2024 1:19 PM FACER OPERATOR Abnormality of right breast on screening mammography DIAGNOSTIC MAMMOGRAM RIGHT W GUSTAVO Routine 09/20/2024 12:58 PM FACER OPERATOR Abnormality of right breast on screening mammography SCREENING MAMMOGRAM BILATERAL W GUSTAVO Schedule Routine, Read Routine (OP Routine) 08/25/2024 10:33 AM FACER OPERATOR Screening mammogram, encounter for from Last 3 Months Results * MRI Breast Bilateral W WO Contrast (10/20/2024 12:46 PM FACER OPERATOR) Anatomical Region Laterality Modality Breast Bilateral Magnetic Resonan ce 10/20/2024 1:38 PM FACER OPERATOR Impressions 10/20/2024 1:59 PM FACER OPERATOR 1. A 0.6 cm enhancing mass in the RIGHT slightly inner central breast with associated postbiopsy changes corresponds to the site of biopsy-proven papillary ductal carcinoma in situ. The tissue marker appears to be displaced 2 cm posteriorly. 2. No MR evidence of malignancy in the LEFT breast. OVERALL FINAL ASSESSMENT: BI-RADS Category 6: Known Biopsy-Proven Malignancy. RECOMMENDATION: Continued clinical and oncologic management of known malignancy. Dictated by: Katt Sims M.D. The radiology attending physician has personally reviewed this study, and had reviewed and/or edited this written report and agrees with it. Electronically signed by: Jacklyn Mcwilliams M.D. Narrative 10/20/2024 1:59 PM FACER OPERATOR EXAMINATION: 1. MRI EXAMINATION OF THE BREASTS WITH AND WITHOUT CONTRAST 2. 3D POST PROCESSING ON A DEDICATED 3D WORKSTATION HISTORY: New diagnosis of breast cancer. 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 TECHNIQUE: MRI examination of the breasts per breast tumor protocol with and without gadolinium contrast. A dedicated breast imaging coil was used. The images were transferred to a breast CAD system for 3D post processing and contrast kinetics analysis. CONTRAST: Gadoterate meglumine, 19 ml COMPARISON: Prior exams which date back to 03/04/2016, the most recent on 10/03/2024. No prior breast MRI. BREAST COMPOSITION: Scattered fibroglandular tissue BACKGROUND PARENCHYMAL ENHANCEMENT: Mild FINDINGS: There is a 0.4 x 0.5 x 0.6 cm enhancing mass in the RIGHT slightly inner central breast, which likely represents a small area of residual disease at the biopsy-proven site of papillary ductal carcinoma in situ. Post biopsy changes extend approximately 3 cm posterior to residual mass. Susceptibility artifact consistent with a tissue marker is located approximately 2 cm posterior to the residual mass. There is no suspicious enhancing mass or non-mass enhancement in the LEFT breast. No abnormally enlarged lymph nodes are identified in the visualized portions of either axilla. Procedure Note Jacklyn Mcwilliams MD - 10/20/2024 EXAMINATION: 1. MRI EXAMINATION OF THE BREASTS WITH AND WITHOUT CONTRAST 2. 3D POST PROCESSING ON A DEDICATED 3D WORKSTATION HISTORY: New diagnosis of breast cancer. 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 TECHNIQUE: MRI examination of the breasts per breast tumor protocol with and without gadolinium contrast. A dedicated breast imaging coil was used. The images were transferred to a breast CAD system for 3D post processing and contrast kinetics analysis. CONTRAST: Gadoterate meglumine, 19 ml COMPARISON: Prior exams which date back to 03/04/2016, the most recent on 10/03/2024. No prior breast MRI. BREAST COMPOSITION: Scattered fibroglandular tissue BACKGROUND PARENCHYMAL ENHANCEMENT: Mild FINDINGS: There is a 0.4 x 0.5 x 0.6 cm enhancing mass in the RIGHT slightly inner central breast, which likely represents a small area of residual disease at the biopsy-proven site of papillary ductal carcinoma in situ. Post biopsy changes extend approximately 3 cm posterior to residual mass. Susceptibility artifact consistent with a tissue marker is located approximately 2 cm posterior to the residual mass. There is no suspicious enhancing mass or non-mass enhancement in the LEFT breast. No abnormally enlarged lymph nodes are identified in the visualized portions of either axilla. IMPRESSION: 1. A 0.6 cm enhancing mass in the RIGHT slightly inner central breast with associated postbiopsy changes corresponds to the site of biopsy-proven papillary ductal carcinoma in situ. The tissue marker appears to be displaced 2 cm posteriorly. 2. No MR evidence of malignancy in the LEFT breast. OVERALL FINAL ASSESSMENT: BI-RADS Category 6: Known Biopsy-Proven Malignancy. RECOMMENDATION: Continued clinical and oncologic management of known malignancy. Dictated by: Katt Sims M.D. The radiology attending physician has personally reviewed this study, and had reviewed and/or edited this written report and agrees with it. Electronically signed by: Jacklyn Mcwilliams M.D. us Jamila Horne MD PhD IMG MRI PROCEDURES Final R esult * Gustavo Post Clip Placement Right (10/03/2024 1:40 PM FACER OPERATOR) Anatomical Region Laterality Modality Breast Right Mammography 10/03/2024 5:10 PM FACER OPERATOR Addenda Addendum by Corine Campuzano MD on 10/06/2024 8:01 AM FACER OPERATOR ADDENDUM: Pathology from biopsy of the right breast showed: Breast, right, 2:30, 3 cm from nipple, biopsy (note displacement of the ribbon-shaped tissue marker clip as detailed in the body of the report, with residual abnormality at the site of biopsy) - Papillary ductal carcinoma in situ (DCIS) - Nuclear grade 1 - Microcalcifications associated with DCIS and benign breast tissue Please refer to pathology report for details. Pathology is malignant and concordant. Surgical management and preoperative breast MRI (unless there are contraindications to MRI) are recommended. Results and recommendations will be discussed with the patient by [facility] or referring provider staff and will be separately documented in the medical record. Electronically signed by: Corine Campuzano M.D. Impressions 10/03/2024 5:10 PM FACER OPERATOR Successful core needle biopsy of the RIGHT breast. Pathology is pending. ASSESSMENT: Post Procedure Mammograms for Marker Placement Electronically signed by: Corine Campuzano M.D. Narrative 10/03/2024 5:10 PM FACER OPERATOR EXAMINATION: RIGHT BREAST CORE BIOPSY UTILIZING SONOGRAPHIC GUIDANCE, PLACEMENT OF A BIOPSY TISSUE MARKER CLIP, AND RIGHT FULL FIELD DIGITAL MAMMOGRAM WITH DIGITAL BREAST TOMOSYNTHESIS HISTORY: Abnormal breast imaging. 64-year-old woman with screen detected mass with associated calcifications in the RIGHT breast at the 2:30 position, 3 cm from the nipple. Ultrasound guided core needle biopsy is requested to evaluate for malignancy. COMPARISON: Multiple prior mammograms dating back to 03/04/2016, most recent from 09/20/2024. Right breast ultrasound from 09/20/2024. BREAST PARENCHYMAL COMPOSITION: There are scattered areas of fibroglandular density. PROCEDURE AND FINDINGS: The risks and potential benefits of the procedures were discussed with the patient and written informed consent was obtained. After sterile preparation of the skin, 1% lidocaine and 2% lidocaine with epinephrine were utilized for local anesthesia. A small skin incision was made with a #11 scalpel blade. A 14G vacuum-assisted biopsy needle was then advanced through the skin incision to the edge of the lesion of interest at the 2:30 position, 3 cm from the RIGHT breast from an inferolateral approach utilizing sonographic guidance. A total of 10 tissue cores were obtained through the lesion. A specimen radiograph demonstrates that the calcifications of interest are included within the tissue cores. An UltraClip ribbon-shaped tissue marker clip was then placed at the biopsy site. Hemostasis was achieved. Dermabond bandage and an ice pack were applied. There was no evidence of significant immediate complication. The patient was given verbal as well as written post procedural instructions prior to release from the department. The tissue cores were submitted to surgical pathology in formalin for histologic analysis. A two-view RIGHT digital mammogram, including digital breast tomosynthesis, obtained post procedure demonstrates that the tissue marker clip is 3 cm posterior to the expected location, with postbiopsy change associated with the biopsied mass. The tissue marker displacement likely occurred related to postbiopsy change, but there are residual calcifications/portion of the mass for localization if needed. The attending radiologist, Dr. Corine Campuzano M.D., was present throughout the entire procedure. Procedure Note Corine Campuzano MD - 10/03/2024 EXAMINATION: RIGHT BREAST CORE BIOPSY UTILIZING SONOGRAPHIC GUIDANCE, PLACEMENT OF A BIOPSY TISSUE MARKER CLIP, AND RIGHT FULL FIELD DIGITAL MAMMOGRAM WITH DIGITAL BREAST TOMOSYNTHESIS HISTORY: Abnormal breast imaging. 64-year-old woman with screen detected mass with associated calcifications in the RIGHT breast at the 2:30 position, 3 cm from the nipple. Ultrasound guided core needle biopsy is requested to evaluate for malignancy. COMPARISON: Multiple prior mammograms dating back to 03/04/2016, most recent from 09/20/2024. Right breast ultrasound from 09/20/2024. BREAST PARENCHYMAL COMPOSITION: There are scattered areas of fibroglandular density. PROCEDURE AND FINDINGS: The risks and potential benefits of the procedures were discussed with the patient and written informed consent was obtained. After sterile preparation of the skin, 1% lidocaine and 2% lidocaine with epinephrine were utilized for local anesthesia. A small skin incision was made with a #11 scalpel blade. A 14G vacuum-assisted biopsy needle was then advanced through the skin incision to the edge of the lesion of interest at the 2:30 position, 3 cm from the RIGHT breast from an inferolateral approach utilizing sonographic guidance. A total of 10 tissue cores were obtained through the lesion. A specimen radiograph demonstrates that the calcifications of interest are included within the tissue cores. An UltraClip ribbon-shaped tissue marker clip was then placed at the biopsy site. Hemostasis was achieved. Dermabond bandage and an ice pack were applied. There was no evidence of significant immediate complication. The patient was given verbal as well as written post procedural instructions prior to release from the department. The tissue cores were submitted to surgical pathology in formalin for histologic analysis. A two-view RIGHT digital mammogram, including digital breast tomosynthesis, obtained post procedure demonstrates that the tissue marker clip is 3 cm posterior to the expected location, with postbiopsy change associated with the biopsied mass. The tissue marker displacement likely occurred related to postbiopsy change, but there are residual calcifications/portion of the mass for localization if needed. The attending radiologist, Dr. Corine Campuzano M.D., was present throughout the entire procedure. IMPRESSION: Successful core needle biopsy of the RIGHT breast. Pathology is pending. ASSESSMENT: Post Procedure Mammograms for Marker Placement Electronically signed by: Corine Campuzano M.D. Radha Liliavicente Webb NP IMG MAMMO PROCEDURES Edite d Result - Final * US Guided Breast Biopsy Right (10/03/2024 1:26 PM FACER OPERATOR) Anatomical Region Laterality Modality Breast Right Mammography 10/03/2024 5:10 PM FACER OPERATOR Addenda Addendum by Corine Campuzano MD on 10/06/2024 8:01 AM FACER OPERATOR ADDENDUM: Pathology from biopsy of the right breast showed: Breast, right, 2:30, 3 cm from nipple, biopsy (note displacement of the ribbon-shaped tissue marker clip as detailed in the body of the report, with residual abnormality at the site of biopsy) - Papillary ductal carcinoma in situ (DCIS) - Nuclear grade 1 - Microcalcifications associated with DCIS and benign breast tissue Please refer to pathology report for details. Pathology is malignant and concordant. Surgical management and preoperative breast MRI (unless there are contraindications to MRI) are recommended. Results and recommendations will be discussed with the patient by [facility] or referring provider staff and will be separately documented in the medical record. Electronically signed by: Corine Campuzano M.D. Impressions 10/03/2024 5:10 PM FACER OPERATOR Successful core needle biopsy of the RIGHT breast. Pathology is pending. ASSESSMENT: Post Procedure Mammograms for Marker Placement Electronically signed by: Corine Campuzano M.D. Narrative 10/03/2024 5:10 PM FACER OPERATOR EXAMINATION: RIGHT BREAST CORE BIOPSY UTILIZING SONOGRAPHIC GUIDANCE, PLACEMENT OF A BIOPSY TISSUE MARKER CLIP, AND RIGHT FULL FIELD DIGITAL MAMMOGRAM WITH DIGITAL BREAST TOMOSYNTHESIS HISTORY: Abnormal breast imaging. 64-year-old woman with screen detected mass with associated calcifications in the RIGHT breast at the 2:30 position, 3 cm from the nipple. Ultrasound guided core needle biopsy is requested to evaluate for malignancy. COMPARISON: Multiple prior mammograms dating back to 03/04/2016, most recent from 09/20/2024. Right breast ultrasound from 09/20/2024. BREAST PARENCHYMAL COMPOSITION: There are scattered areas of fibroglandular density. PROCEDURE AND FINDINGS: The risks and potential benefits of the procedures were discussed with the patient and written informed consent was obtained. After sterile preparation of the skin, 1% lidocaine and 2% lidocaine with epinephrine were utilized for local anesthesia. A small skin incision was made with a #11 scalpel blade. A 14G vacuum-assisted biopsy needle was then advanced through the skin incision to the edge of the lesion of interest at the 2:30 position, 3 cm from the RIGHT breast from an inferolateral approach utilizing sonographic guidance. A total of 10 tissue cores were obtained through the lesion. A specimen radiograph demonstrates that the calcifications of interest are included within the tissue cores. An UltraClip ribbon-shaped tissue marker clip was then placed at the biopsy site. Hemostasis was achieved. Dermabond bandage and an ice pack were applied. There was no evidence of significant immediate complication. The patient was given verbal as well as written post procedural instructions prior to release from the department. The tissue cores were submitted to surgical pathology in formalin for histologic analysis. A two-view RIGHT digital mammogram, including digital breast tomosynthesis, obtained post procedure demonstrates that the tissue marker clip is 3 cm posterior to the expected location, with postbiopsy change associated with the biopsied mass. The tissue marker displacement likely occurred related to postbiopsy change, but there are residual calcifications/portion of the mass for localization if needed. The attending radiologist, Dr. Corine Campuzano M.D., was present throughout the entire procedure. Procedure Note Corine Campuzano MD - 10/03/2024 EXAMINATION: RIGHT BREAST CORE BIOPSY UTILIZING SONOGRAPHIC GUIDANCE, PLACEMENT OF A BIOPSY TISSUE MARKER CLIP, AND RIGHT FULL FIELD DIGITAL MAMMOGRAM WITH DIGITAL BREAST TOMOSYNTHESIS HISTORY: Abnormal breast imaging. 64-year-old woman with screen detected mass with associated calcifications in the RIGHT breast at the 2:30 position, 3 cm from the nipple. Ultrasound guided core needle biopsy is requested to evaluate for malignancy. COMPARISON: Multiple prior mammograms dating back to 03/04/2016, most recent from 09/20/2024. Right breast ultrasound from 09/20/2024. BREAST PARENCHYMAL COMPOSITION: There are scattered areas of fibroglandular density. PROCEDURE AND FINDINGS: The risks and potential benefits of the procedures were discussed with the patient and written informed consent was obtained. After sterile preparation of the skin, 1% lidocaine and 2% lidocaine with epinephrine were utilized for local anesthesia. A small skin incision was made with a #11 scalpel blade. A 14G vacuum-assisted biopsy needle was then advanced through the skin incision to the edge of the lesion of interest at the 2:30 position, 3 cm from the RIGHT breast from an inferolateral approach utilizing sonographic guidance. A total of 10 tissue cores were obtained through the lesion. A specimen radiograph demonstrates that the calcifications of interest are included within the tissue cores. An UltraClip ribbon-shaped tissue marker clip was then placed at the biopsy site. Hemostasis was achieved. Dermabond bandage and an ice pack were applied. There was no evidence of significant immediate complication. The patient was given verbal as well as written post procedural instructions prior to release from the department. The tissue cores were submitted to surgical pathology in formalin for histologic analysis. A two-view RIGHT digital mammogram, including digital breast tomosynthesis, obtained post procedure demonstrates that the tissue marker clip is 3 cm posterior to the expected location, with postbiopsy change associated with the biopsied mass. The tissue marker displacement likely occurred related to postbiopsy change, but there are residual calcifications/portion of the mass for localization if needed. The attending radiologist, Dr. Corine Campuzano M.D., was present throughout the entire procedure. IMPRESSION: Successful core needle biopsy of the RIGHT breast. Pathology is pending. ASSESSMENT: Post Procedure Mammograms for Marker Placement Electronically signed by: Corine Campuzano M.D. Radha Webb NP [facility] [place]MO [place]ED[facility] Edite d Result - Final * Surgical pathology (10/03/2024 1:15 PM FACER OPERATOR) Tissue (Breast biopsy, needle core) 10/03/2024 1:15 PM FACER OPERATOR Comment:right breast 2:30 3 cm/fn, ultrasound biopsy, birads 4a. This is a 1.2 cm oval mass with slightly indistinct margins and calcifications which may represent a degenerating fibroadenoma, fibrocystic change, or less likely malignancy. Narrative PATHOLOGY [facility] - 10/05/2024 4:39 PM FACER OPERATOR EPIC results best viewed via link to PDF [facility] Surgical [facility], [place] [address] Note to Patients: This report may contain a detailed description of human tissue sent by a health care provider to the laboratory for pathologic evaluation. The content of this report is essential for diagnosis and may provide important critical findings. This information may be unfamiliar to patients to review without a medical professional present. It is advised that the patient review this report in the presence of a health care provider who can answer questions and explain the details. 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 Juwan Dubose MD PhD Report Electronically Reviewed and Signed Out By Juwan Dubose MD PhD 10/05/2024 16:39:30 Microscopic Description and Comment: Immunohistochemistry (single antibody procedure with appropriate controls) was performed for further characterization. The myoepithelial cells surrounding DCIS are highlighted by CK5/6 and p63. The epithelial cells are diffusely positive for ER and negative for CK5/6. This case is reviewed in consensus for quality assurance assistant. Danny Nevarez M.D. History: The patient is a 64-year-old woman presenting for abnormal mammogram. Operative procedure: Right breast ultrasound biopsy BI-RADS 4A. Specimen(s) Received: A: Right breast 2:30 3cm/fn ultrasound biopsy birads 4a Gross Description: Received in formalin, labeled with the patient s identifiers and right breast 2:30 3 cm FN ultrasound biopsy BI-RADS 4A are 15 yellow cores of fibrofatty tissue (measuring 0.9 2-0.4 cm in length by 0.3 cm in diameter. Labeled A1 to A8. Jar 0. Placed in formalin immediately after collection. Total fixation time= 8.0 hours. [facility]/10/03/2024 18:51 PA(s): Sofia Altamirano BREAST BIOMARKER RESULTS ESTROGEN RECEPTOR: Positive Heather Score: Proportion 5/5 Intensity 3/3 Total Score 8/8 PROGESTERONE RECEPTOR: Not evaluated HER-2: Not evaluated TUMOR HISTOLOGIC TYPE: Ductal carcinoma in situ HISTOLOGICAL GRADE BY ESBR CRITERIA: N/A (for DCIS or metastatic carcinoma) Technical Notes Estrogen receptor (ER), progesterone receptor (MD), and HER2 were evaluated by immunohistochemistry (IHC) by morphometric analysis in routine formalin-fixed paraffin-embedded tissue using a proprietary polymer- based detection system and instrumentation by [employer] per industrial ecologist's recommendation. The IHC results for ER (antibody SP1) and MD (antibody 1E2) were quantified and interpreted (positive vs negative) using the Heather score (total score range = 0 to 8; positive >2) (see: Mod Pathol 11:155, 1998; J Clin Oncol 17:1474, 1998; Mod Pathol 17:1545, 2004; Arch Pathol Lab Med 144:545, 2020). Pathway Her2 is a trademark of [employer] The IHC results for Pathway Her2 (antibody 4B5 rabbit monoclonal antibody) were scored in compliance with the ASCO/CAP guidelines (see: J Clin Oncol 25:118, 2007; Arch Pathol Lab Med 131:18, 2007, Arch Pathol Lab Med 142:1364, 2018). Heather score for estrogen and progesterone receptor evaluation: The Heather score combines the percentage of positive cells [proportion score: 0 (0%), 1 (<1%), 2 (1-10%), 3 (11- 33%), 4 (34-66%), 5 (>67%)] and the intensity of the reaction product (intensity score: 0-3). The two scores are added together for a final score. A combined score of >2 is considered positive. Her2 Interpretation guide Score 0: No membrane staining is observed, or immunoreactivity in <=10% of tumor cells; score 1+: incomplete membrane staining that is faint/barely perceptible and within >10% of tumor cells; score 2+: circumferential membrane staining that is incomplete and/or weak/moderate and within >10% of tumor cells, or complete and circumferential membrane staining that is intense and within <=10% of tumor cells; score 3+: intense and uniform circumferential membrane staining in >10% of tumor cells. A strong membranous (chicken-wire) pattern should be present. Ki-67 Technical Note and Interpretation: Testing for Ki-67 is performed at the request of the clinical teams. Ki-67 was evaluated by immunohistochemistry (IHC) in routine formalin-fixed paraffin-embedded tissue using rabbit monoclonal antibody to Ki-67 (clone [id number]) and a proprietary polymer-based detection system and instrumentation by [employer] per industrial ecologist's recommendation. The index was determined by manual morphometric analysis of at least 3 high power recio and calculating the proportion of tumor cells with positive nuclear staining. Control expression, sample adequacy, and uniformity of staining were all assessed. For uniform staining the index is determined by 3 randomly selected high power recio and calculating the proportion of tumor cells with positive nuclear staining. For non-uniform staining, the average across the stained specimen is reported (see: J Natl Cancer Inst 103:1656, 2011). Given the absence of inter-laboratory standardization for this assay, proliferation indices must be interpreted with caution and no prognostic thresholds can be provided. Published thresholds may or may not be relevant to the reported results and findings should be interpreted in conjunction with all other relevant clinical and pathological data. By this signature, I attest that the above diagnosis is based upon my personal examination of the slides(and/or other material). Addenda/Procedures The performance characteristics of some immunohistochemical stains, fluorescence in-situ hybridization tests and immunophenotyping by flow cytometry cited in this report (if any) were determined by the Surgical Pathology and Flow Cytometry Departments at [facility] as part of an ongoing quality assurance assistant program and in compliance with federally mandated regulations drawn from the Clinical Laboratory Improvement Act of 1988 (CLIA '88). Some of these tests rely on the use of analyte specific reagents and are subject to specific labeling requirements by the US Food and Drug Administration. Such diagnostic tests may only be performed in a facility that is certified by the Department of Health and Human Services as a high complexity laboratory under CLIA '88. The FDA has determined that such clearance or approval is not necessary. This test is used for clinical purposes. It should not be regarded as investigational or for research. Nevertheless, federal rules concerning the medical use of analyte specific reagents require that the following disclaimer be attached to the report: This test was developed and its performance characteristics determined by the Surgical Pathology and Flow Cytometry Departments of [facility]. It has not been cleared or approved by the U. S. Food and Drug Administration. IMAGES AND SCANNED DOCUMENTS, IF INCLUDED, ONLY VIEWABLE IN PDF VERSION OF REPORT us Radha Webb NP LAB PATHOLOGY ORDERABLES F inal Result PATHOLOGY [facility] [place] [address] Floor [place], [place] [phone] * US Breast Right Limited (09/20/2024 1:19 PM FACER OPERATOR) Anatomical Region Laterality Modality Breast Right Ultrasound 09/20/2024 1:42 PM FACER OPERATOR Impressions 09/20/2024 2:30 PM FACER OPERATOR Oval 1.2 cm mass in the right breast at 2:30, 3 cm from the nipple with partially indistinct margins and associated calcifications is of low suspicion for malignancy and may represent a calcifying fibroadenoma. Ultrasound-guided biopsy is recommended. The method of initial detection of finding was 3D screening mammography (Sdbt). OVERALL FINAL ASSESSMENT: SUSPICIOUS. BI-RADS Category 4A: Low suspicion for malignancy. RECOMMENDATION: Ultrasound-guided biopsy of right breast mass at 2:30, 3 cm from the nipple. Dr. Elise discussed the above findings and recommendations with the patient and her . She has been scheduled for biopsy on 10/03/2024 at 12:45 PM. This facility will contact the referring clinician's office for an order. Dictated by: Serena Elise M.D. The radiology attending physician has personally reviewed this study, and had reviewed and/or edited this written report and agrees with it. Electronically signed by: Gabriela Parikh M.D. Narrative 09/20/2024 2:30 PM FACER OPERATOR EXAMINATION: RIGHT UNILATERAL DIGITAL DIAGNOSTIC MAMMOGRAM AND DIGITAL BREAST TOMOSYNTHESIS; RIGHT BREAST SONOGRAM HISTORY: 64-year-old woman with screen detected mass with associated calcifications in the right breast presenting for additional imaging. COMPARISON: 08/25/2024 bilateral mammogram and additional prior studies dating back to 2015. TECHNIQUE: Full field digital mammographic views of the RIGHT breast were performed, including computer aided detection (CAD) and digital breast tomosynthesis (DBT). Directed ultrasound evaluation of the RIGHT breast was performed. BREAST PARENCHYMAL COMPOSITION: There are scattered areas of fibroglandular density. MAMMOGRAM FINDINGS: There is a 1.0 cm oval mass in the central inner right breast at posterior depth that persists with spot compression. There are associated calcifications within the mass. SONOGRAM FINDINGS: Targeted sonographic evaluation of the right breast at 2:30, 3 cm from the nipple demonstrates an oval hypoechoic mass with partially indistinct margins measuring 0.9 x 1.2 x 0.6 cm. There are internal echogenic foci suggestive of calcifications. There is no internal vascularity. Procedure Note Gabriela Parikh MD - 09/20/2024 EXAMINATION: RIGHT UNILATERAL DIGITAL DIAGNOSTIC MAMMOGRAM AND DIGITAL BREAST TOMOSYNTHESIS; RIGHT BREAST SONOGRAM HISTORY: 64-year-old woman with screen detected mass with associated calcifications in the right breast presenting for additional imaging. COMPARISON: 08/25/2024 bilateral mammogram and additional prior studies dating back to 2015. TECHNIQUE: Full field digital mammographic views of the RIGHT breast were performed, including computer aided detection (CAD) and digital breast tomosynthesis (DBT). Directed ultrasound evaluation of the RIGHT breast was performed. BREAST PARENCHYMAL COMPOSITION: There are scattered areas of fibroglandular density. MAMMOGRAM FINDINGS: There is a 1.0 cm oval mass in the central inner right breast at posterior depth that persists with spot compression. There are associated calcifications within the mass. SONOGRAM FINDINGS: Targeted sonographic evaluation of the right breast at 2:30, 3 cm from the nipple demonstrates an oval hypoechoic mass with partially indistinct margins measuring 0.9 x 1.2 x 0.6 cm. There are internal echogenic foci suggestive of calcifications. There is no internal vascularity. IMPRESSION: Oval 1.2 cm mass in the right breast at 2:30, 3 cm from the nipple with partially indistinct margins and associated calcifications is of low suspicion for malignancy and may represent a calcifying fibroadenoma. Ultrasound-guided biopsy is recommended. The method of initial detection of finding was 3D screening mammography (Sdbt). OVERALL FINAL ASSESSMENT: SUSPICIOUS. BI-RADS Category 4A: Low suspicion for malignancy. RECOMMENDATION: Ultrasound-guided biopsy of right breast mass at 2:30, 3 cm from the nipple. Dr. Elise discussed the above findings and recommendations with the patient and her . She has been scheduled for biopsy on 10/03/2024 at 12:45 PM. This facility will contact the referring clinician's office for an order. Dictated by: Serena Elise M.D. The radiology attending physician has personally reviewed this study, and had reviewed and/or edited this written report and agrees with it. Electronically signed by: Gabriela Parikh M.D. us Radha Webb TREE INSPECTOR IMG MAMMO PROCEDURES Final Result * Diagnostic Mammogram Right W Gustavo (09/20/2024 12:58 PM FACER OPERATOR) Anatomical Region Laterality Modality Breast Right Mammography 09/20/2024 1:42 PM FACER OPERATOR Impressions 09/20/2024 2:30 PM FACER OPERATOR Oval 1.2 cm mass in the right breast at 2:30, 3 cm from the nipple with partially indistinct margins and associated calcifications is of low suspicion for malignancy and may represent a calcifying fibroadenoma. Ultrasound-guided biopsy is recommended. The method of initial detection of finding was 3D screening mammography (Sdbt). OVERALL FINAL ASSESSMENT: SUSPICIOUS. BI-RADS Category 4A: Low suspicion for malignancy. RECOMMENDATION: Ultrasound-guided biopsy of right breast mass at 2:30, 3 cm from the nipple. Dr. Elise discussed the above findings and recommendations with the patient and her . She has been scheduled for biopsy on 10/03/2024 at 12:45 PM. This facility will contact the referring clinician's office for an order. Dictated by: Serena Elise M.D. The radiology attending physician has personally reviewed this study, and had reviewed and/or edited this written report and agrees with it. Electronically signed by: Gabriela Parikh M.D. Narrative 09/20/2024 2:30 PM FACER OPERATOR EXAMINATION: RIGHT UNILATERAL DIGITAL DIAGNOSTIC MAMMOGRAM AND DIGITAL BREAST TOMOSYNTHESIS; RIGHT BREAST SONOGRAM HISTORY: 64-year-old woman with screen detected mass with associated calcifications in the right breast presenting for additional imaging. COMPARISON: 08/25/2024 bilateral mammogram and additional prior studies dating back to 2015. TECHNIQUE: Full field digital mammographic views of the RIGHT breast were performed, including computer aided detection (CAD) and digital breast tomosynthesis (DBT). Directed ultrasound evaluation of the RIGHT breast was performed. BREAST PARENCHYMAL COMPOSITION: There are scattered areas of fibroglandular density. MAMMOGRAM FINDINGS: There is a 1.0 cm oval mass in the central inner right breast at posterior depth that persists with spot compression. There are associated calcifications within the mass. SONOGRAM FINDINGS: Targeted sonographic evaluation of the right breast at 2:30, 3 cm from the nipple demonstrates an oval hypoechoic mass with partially indistinct margins measuring 0.9 x 1.2 x 0.6 cm. There are internal echogenic foci suggestive of calcifications. There is no internal vascularity. Procedure Note Gabriela Parikh MD - 09/20/2024 EXAMINATION: RIGHT UNILATERAL DIGITAL DIAGNOSTIC MAMMOGRAM AND DIGITAL BREAST TOMOSYNTHESIS; RIGHT BREAST SONOGRAM HISTORY: 64-year-old woman with screen detected mass with associated calcifications in the right breast presenting for additional imaging. COMPARISON: 08/25/2024 bilateral mammogram and additional prior studies dating back to 2015. TECHNIQUE: Full field digital mammographic views of the RIGHT breast were performed, including computer aided detection (CAD) and digital breast tomosynthesis (DBT). Directed ultrasound evaluation of the RIGHT breast was performed. BREAST PARENCHYMAL COMPOSITION: There are scattered areas of fibroglandular density. MAMMOGRAM FINDINGS: There is a 1.0 cm oval mass in the central inner right breast at posterior depth that persists with spot compression. There are associated calcifications within the mass. SONOGRAM FINDINGS: Targeted sonographic evaluation of the right breast at 2:30, 3 cm from the nipple demonstrates an oval hypoechoic mass with partially indistinct margins measuring 0.9 x 1.2 x 0.6 cm. There are internal echogenic foci suggestive of calcifications. There is no internal vascularity. IMPRESSION: Oval 1.2 cm mass in the right breast at 2:30, 3 cm from the nipple with partially indistinct margins and associated calcifications is of low suspicion for malignancy and may represent a calcifying fibroadenoma. Ultrasound-guided biopsy is recommended. The method of initial detection of finding was 3D screening mammography (Sdbt). OVERALL FINAL ASSESSMENT: SUSPICIOUS. BI-RADS Category 4A: Low suspicion for malignancy. RECOMMENDATION: Ultrasound-guided biopsy of right breast mass at 2:30, 3 cm from the nipple. Dr. Elise discussed the above findings and recommendations with the patient and her . She has been scheduled for biopsy on 10/03/2024 at 12:45 PM. This facility will contact the referring clinician's office for an order. Dictated by: Serena Elise M.D. The radiology attending physician has personally reviewed this study, and had reviewed and/or edited this written report and agrees with it. Electronically signed by: Gabriela Parikh M.D. us Radha Webb NP IMG MAMMO PROCEDURES Final Result * Screening Mammogram Bilateral W Gustavo (08/25/2024 10:33 AM FACER OPERATOR) Anatomical Region Laterality Modality Breast Bilateral Mammography Narrative 08/25/2024 2:36 PM FACER OPERATOR Mammogram Technique: Bilateral Digital Breast Tomosynthesis, Bilateral C-view 2D Screening mammogram. Views obtained: bilateral craniocaudal and bilateral mediolateral oblique. Computer Aided Detection was performed. Mammogram Findings: The present examination has been compared to prior imaging studies performed at [facility] on 04/22/2022 and 06/02/2023, and at [facility] on 03/25/2021. There are scattered areas of fibroglandular density. There is an oval mass with associated amorphous calcifications in the middle of the right breast at 3 o'clock. There is no suspicious abnormality in the left breast. Impression: Mass in the right breast requires additional evaluation. Diagnostic mammogram and possible ultrasound of the right breast are recommended at this time. OVERALL FINAL ASSESSMENT: BI-RADS CATEGORY 0: Incomplete: Need additional imaging evaluation. Procedure Note Ashley Haskins MD - 08/25/2024 Mammogram Technique: Bilateral Digital Breast Tomosynthesis, Bilateral C-view 2D Screening mammogram. Views obtained: bilateral craniocaudal and bilateral mediolateral oblique. Computer Aided Detection was performed. Mammogram Findings: The present examination has been compared to prior imaging studies performed at [facility] on 04/22/2022 and 06/02/2023, and at [facility] on 03/25/2021. There are scattered areas of fibroglandular density. There is an oval mass with associated amorphous calcifications in the middle of the right breast at 3 o'clock. There is no suspicious abnormality in the left breast. Impression: Mass in the right breast requires additional evaluation. Diagnostic mammogram and possible ultrasound of the right breast are recommended at this time. OVERALL FINAL ASSESSMENT: BI-RADS CATEGORY 0: Incomplete: Need additional imaging evaluation. us Self Screening Mammogram IMG MAMMO PROCEDURES Fi nal Result from Last 3 Months Insurance [facility] CHOICE PLUS [facility] Care Teams Hourly Associate Relationship Specialty Start Date End Date Radha Webb NP [address] [address] PCP - General Internal Medicine 07/26/24 Teetee Lindsey MD [address] [address] Referring Physician Obstetrics and Gynecology 11/27/21
--- OUTSIDE RECORDS SUMMARY | 2024-11-11 08:24 | XMS_ITS | Referral Summary ---
Author Organization [facility] Address [address] [place] [address] Care Team Providers Care Apron Operator Name Role Phone Teetee Lindsey MD Unavailable [phone] Radha Webb NP Primary Care Provider [phone] Encounters Date Type Department Care Team Description 10/28/2024 Telephone [facility] [address] [place] [phone] Jamila Horne MD PhD 10/24/2024 3:00 PM IMAGE SCIENTIST Office Visit [facility] [address] [place] [phone] Jamila Horne MD PhD Ductal carcinoma in situ (DCIS) of right breast 10/20/2024 11:27 AM IMAGE SCIENTIST - 10/20/2024 11:59 PM IMAGE SCIENTIST Hospital Encounter [facility] [address] [place] [address] Jamila Horne MD PhD Ductal carcinoma in situ (DCIS) of right breast Discharge Disposition: Discharge to home or self care 10/06/2024 Orders Only [facility] Surgery [address] [place] [phone] Jamila Horne MD PhD Ductal carcinoma in situ (DCIS) of right breast (Primary Dx) 10/06/2024 Telephone [facility] ([facility]) [address] [place] [address] Sofia Peters RN Test Results (Right breast biopsy results ) 10/03/2024 12:56 PM IMAGE SCIENTIST - 10/03/2024 11:59 PM IMAGE SCIENTIST Hospital Encounter [facility] ([facility]) [address] [place] [address] Abnormal mammogram Discharge Disposition: Discharge to home or self care 10/03/2024 11:57 AM IMAGE SCIENTIST - 10/03/2024 11:59 PM IMAGE SCIENTIST Hospital Encounter [facility] ([facility]) [address] [place] [address] Abnormal mammogram Discharge Disposition: Discharge to home or self care 09/21/2024 Telephone [facility] ([facility]) [address] [place] [address] Sonia Camargo RN 09/20/2024 12:23 PM IMAGE SCIENTIST - 09/20/2024 11:59 PM IMAGE SCIENTIST Hospital Encounter [facility] ([facility]) [address] [place] [address] Abnormality of right breast on screening mammography Discharge Disposition: Discharge to home or self care 09/20/2024 12:23 PM IMAGE SCIENTIST - 09/20/2024 11:59 PM IMAGE SCIENTIST Hospital Encounter [facility] ([facility]) [address] [place] [address] Abnormality of right breast on screening mammography Discharge Disposition: Discharge to home or self care 08/25/2024 10:20 AM IMAGE SCIENTIST - 08/25/2024 11:59 PM IMAGE SCIENTIST Hospital Encounter [facility] ([facility]) [address] [place] [address] Screening mammogram, encounter for Discharge Disposition: Discharge to home or self care from Last 3 Months Allergies Active Allergy Reactions Criticality Noted Date Comments Erythromycin Stomach upset Low 01/01/2011 (?), (?), (?) Medications loratadine 10 mg capsule 02/08/2005 Active pqbfm-8-dbv-epa -dpa-fish oil 1,050-1,200 mg capsule 02/08/2020 Active [...] deficiency 01/14/2014 Overview (12/06/2016): Vitamin D deficiency Immunizations Immunization Administration Dates Next Due Influenza, Quadrivalent, Spl it, Preservative Free, Intramuscular 06/19/2020 Pfizer SARS-CoV-2 Monovalent Vaccination (12+ Yrs) PURPLE 11/30/2020,11/09/2020 Social History Tobacco Use Types Packs/Day Years Used Date Smoking Tobacco: Never Tobacco Cessation:Counseling Given: Not Answered Alcohol Use Standard Drinks/Week Comments Yes 0 (1 standard drink = 0.6 oz pur e alcohol) Comments No Sex and Gender Information Value Date Recorded Sex Assigned at Not on file Legal Sex Female 10:58 AM IMAGE SCIENTIST Gender Identity Female 04/10/2021 1:17 PM CDT Sexual Orientation Straight 04/10/2021 1: 17 PM CDT Last Filed Vital Signs Vital Sign Reading Time Taken Comments Blood Pressure 110/74 04/25/2014 8:15 AM CDT Pulse 68 04/25/2014 8:15 AM CDT Temperature - - Respiratory Rate - - Oxygen Saturation - - Inhaled Oxygen Concentration - - Weight 107.8 kg (237 lb 9.6 oz) 10/24/2024 3:01 PM IMAGE SCIENTIST Height 163 cm (5' 4.17 ) 10/24/2024 3:01 PM IMAGE SCIENTIST Body Mass Index 40.56 10/24/2024 3:01 PM IMAGE SCIENTIST Plan of Treatment Not on file Medical Devices Implanted Type Area Ranger Aide Device Identifier Shelf Expiration Date Model / Serial / Lot Bard Peripheral Vascular Ultraclip Bard 17ga 10cm 2 Trigger Permanent Ultrasound [id number] - [id number] Implanted:Qty: 1 on 10/03/2024 by Corine Campuzano MD at [facility] Right: Breast Bard Peripheral Vascular [id number] / / Procedures Procedure Name Priority Date/Time Associated Diagnosis Comments MRI BREAST BILATERAL W WO CONTRAST Schedule Routine, Read Routine (OP Routine) 10/20/2024 12:46 PM IMAGE SCIENTIST Ductal carcinoma in situ (DCIS) of right breast GUSTAVO POST CLIP PLACEMENT RIGHT Schedule Routine, Read Routine (OP Routine) 10/03/2024 1:40 PM IMAGE SCIENTIST Abnormal mammogram US GUIDED BREAST BIOPSY RIGHT Schedule Routine, Read Routine (OP Routine) 10/03/2024 1:26 PM IMAGE SCIENTIST Abnormal mammogram SURGICAL PATHOLOGY Routine 10/03/2024 1: 15 PM IMAGE SCIENTIST Abnormal mammogram US BREAST RIGHT LIMITED Routine 09/20/2024 1:19 PM IMAGE SCIENTIST Abnormality of right breast on screening mammography DIAGNOSTIC MAMMOGRAM RIGHT W GUSTAVO Routine 09/20/2024 12:58 PM IMAGE SCIENTIST Abnormality of right breast on screening mammography SCREENING MAMMOGRAM BILATERAL W GUSTAVO Schedule Routine, Read Routine (OP Routine) 08/25/2024 10:33 AM IMAGE SCIENTIST Screening mammogram, encounter for from Last 3 Months Results * MRI Breast Bilateral W WO Contrast (10/20/2024 12:46 PM IMAGE SCIENTIST) Anatomical Region Laterality Modality Breast Bilateral Magnetic Resonan ce 10/20/2024 1:38 PM IMAGE SCIENTIST Impressions 10/20/2024 1:59 PM IMAGE SCIENTIST 1. A 0.6 cm enhancing mass in [...] Jacklyn Mcwilliams M.D. Narrative 10/20/2024 1:59 PM IMAGE SCIENTIST EXAMINATION: 1. MRI EXAMINATION OF THE BREASTS [...] Post Clip Placement Right (10/03/2024 1:40 PM IMAGE SCIENTIST) Anatomical Region Laterality Modality Breast Right Mammography 10/03/2024 5:10 PM IMAGE SCIENTIST Addenda Addendum by Corine Campuzano MD on 10/06/2024 8:01 AM IMAGE SCIENTIST ADDENDUM: Pathology from biopsy of the right [...] will be discussed with the patient by [facility] or referring provider staff and will be separately documented in the medical record. Electronically signed by: Corine Campuzano M.D. Impressions 10/03/2024 5:10 PM IMAGE SCIENTIST Successful core needle biopsy of the RIGHT breast. Pathology is pending. ASSESSMENT: Post Procedure Mammograms for Marker Placement Electronically signed by: Corine Campuzano M.D. Narrative 10/03/2024 5:10 PM IMAGE SCIENTIST EXAMINATION: RIGHT BREAST CORE BIOPSY UTILIZING SONOGRAPHIC [...] by: Corine Campuzano M.D. Radha Webb NP IMG MAMMO PROCEDURES Edite d Result - Final * US Guided Breast Biopsy Right (10/03/2024 1:26 PM IMAGE SCIENTIST) Anatomical Region Laterality Modality Breast Right Mammography 10/03/2024 5:10 PM IMAGE SCIENTIST Addenda Addendum by Corine Campuzano MD on 10/06/2024 8:01 AM IMAGE SCIENTIST ADDENDUM: Pathology from biopsy of the right [...] be discussed with the patient by [facility] or referring provider staff and will be separately documented in the medical record. Electronically signed by: Corine Campuzano M.D. Impressions 10/03/2024 5:10 PM IMAGE SCIENTIST Successful core needle biopsy of the RIGHT breast. Pathology is pending. ASSESSMENT: Post Procedure Mammograms for Marker Placement Electronically signed by: Corine Campuzano M.D. Narrative 10/03/2024 5:10 PM IMAGE SCIENTIST EXAMINATION: RIGHT BREAST CORE BIOPSY UTILIZING SONOGRAPHIC [...] Placement Electronically signed by: Corine Campuzano M.D. us Radha Webb NP IMG MAMMO PROCEDURES Edite d Result - Final * Surgical pathology (10/03/2024 1:15 PM IMAGE SCIENTIST) Tissue (Breast biopsy, needle core) 10/03/2024 1:15 PM IMAGE SCIENTIST Comment:right breast 2:30 3 cm/fn, ultrasound biopsy, birads 4a. This is a 1.2 cm oval mass with slightly indistinct margins and calcifications which may represent a degenerating fibroadenoma, fibrocystic change, or less likely malignancy. 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 Danny Nevarez M.D. History: The patient is [...] after collection. Total fixation time= 8.0 hours. [facility]/10/03/2024 18:51 PA(s): Sofia Altamirano BREAST BIOMARKER RESULTS ESTROGEN RECEPTOR: Positive Heather Score: Proportion 5/5 Intensity 3/3 Total Score 8/8 PROGESTERONE RECEPTOR: Not evaluated HER-2: Not evaluated TUMOR HISTOLOGIC TYPE: Ductal carcinoma in situ HISTOLOGICAL GRADE BY ESBR CRITERIA: N/A (for DCIS or metastatic carcinoma) Technical Notes Estrogen receptor (ER), progesterone receptor (NC), and HER2 were evaluated by immunohistochemistry (IHC) by morphometric analysis in routine formalin-fixed paraffin-embedded tissue using a proprietary polymer- based detection system and instrumentation by [employer] per cleaner signs's recommendation. The IHC results for ER (antibody SP1) and NC (antibody 1E2) were quantified and interpreted (positive vs negative) using the Heather score (total score range = 0 to 8; positive >2) (see: Mod Pathol 11:155, 1998; J Clin Oncol 17:1474, 1998; Mod Pathol 17:1545, 2004; Arch Pathol Lab Med 144:545, 2020). Pathway Her2 is a trademark of [employer] The IHC results for Pathway Her2 [...] proprietary polymer-based detection system and instrumentation by [employer] per cleaner signs's recommendation. The index was determined by manual [...] Surgical Pathology and Flow Cytometry Departments at [facility] as part of an ongoing quality assurance qa lab analyst program and in compliance with federally mandated [...] Surgical Pathology and Flow Cytometry Departments of [facility]. It has not been cleared or approved by the U. S. Food and Drug Administration. IMAGES AND SCANNED DOCUMENTS, IF INCLUDED, ONLY VIEWABLE IN PDF VERSION OF REPORT us Radha Webb NP LAB PATHOLOGY ORDERABLES F inal Result PATHOLOGY [facility] 3rd Floor [place], [place] [phone] * US Breast Right Limited (09/20/2024 1:19 PM IMAGE SCIENTIST) Anatomical Region Laterality Modality Breast Right Ultrasound 09/20/2024 1:42 PM IMAGE SCIENTIST Impressions 09/20/2024 2:30 PM IMAGE SCIENTIST Oval 1.2 cm mass in the right [...] Gabriela Parikh M.D. Narrative 09/20/2024 2:30 PM IMAGE SCIENTIST EXAMINATION: RIGHT UNILATERAL DIGITAL DIAGNOSTIC MAMMOGRAM AND [...] it. Electronically signed by: Gabriela Parikh M.D. Radha Webb NP IMG MAMMO PROCEDURES Final Result * Diagnostic Mammogram Right W Gustavo (09/20/2024 12:58 PM IMAGE SCIENTIST) Anatomical Region Laterality Modality Breast Right Mammography 09/20/2024 1:42 PM IMAGE SCIENTIST Impressions 09/20/2024 2:30 PM IMAGE SCIENTIST Oval 1.2 cm mass in the right [...] Gabriela Parikh M.D. Narrative 09/20/2024 2:30 PM IMAGE SCIENTIST EXAMINATION: RIGHT UNILATERAL DIGITAL DIAGNOSTIC MAMMOGRAM AND [...] and additional prior studies dating back to 2016. TECHNIQUE: Full field digital mammographic views of [...] it. Electronically signed by: Gabriela Parikh M.D. Radha Webb NP IMG MAMMO PROCEDURES Final Result * Screening Mammogram Bilateral W Gustavo (08/25/2024 10:33 AM IMAGE SCIENTIST) Anatomical Region Laterality Modality Breast Bilateral Mammography Narrative 08/25/2024 2:36 PM IMAGE SCIENTIST Mammogram Technique: Bilateral Digital Breast Tomosynthesis, Bilateral C-view 2D Screening mammogram. Views obtained: bilateral craniocaudal and bilateral mediolateral oblique. Computer Aided Detection was performed. Mammogram Findings: The present examination has been compared to prior imaging studies performed at [facility] on 04/22/2022 and 06/02/2023, and at [facility] on 03/25/2021. There are scattered [...] compared to prior imaging studies performed at [facility] on 04/22/2022 and 06/02/2023, and at [facility] on 03/25/2021. There are scattered [...] nal Result from Last 3 Months Insurance [employer] [facility] CHO[facility] PLUS [facility] H[facility]/PPO Address: [address] [address] [place] [address] [facility] H[facility] Care Teams Apron Operator Relationship Specialty Start Date End Date Radha Webb NP [address] [address] PCP - General Internal Medicine 07/26/24 Teetee Lindsey MD [address] [place] [address] Referring Physician Obstetrics and Gynecology 11/27/21
--- OUTSIDE RECORDS SUMMARY | 2024-11-11 08:24 | XMS_ITS | Patient Health Summary ---
Author Organization [facility] Address [address] [place] [address] Care Team Providers Care Educational Program Assistant Name Role Phone BjRadha APRN-RECOATER Primary Care Provider Note from [facility],non-owned Affiliates and Associated Physician Practices is amultiple site organization consisting of ambulatory clinics and hospital sitesin [place], [place], [place] and [place]. This disclosure is being madepursuant to the Care Everywhere program and may not contain all information available regarding this patient. Last updated 18.[facility] Allergies * Cetirizine Hcl * Erythromycin((?), (?), (?)) Medications * Be aware that medications may not be up to date on this document. Alwaysverify current medications with the patient. * azelastine-fluticasone (DYMISTA) 137-50 MCG/ACT nasal spray(Started 06/23/2017) [place] 1 puff into the nose BID. 1 [...] Comments Blood Pressure 128/80 09/14/2019 2:40 PM DRAWER UPFITTER Pulse 92 09/14/2019 2:40 PM DRAWER UPFITTER Temperature - - Respiratory Rate 12 05/08/2015 9:14 AM CDT Oxygen Saturation 95% 09/14/2019 2:40 PM DRAWER UPFITTER Inhaled Oxygen Concentration - - Weight 112.9 kg (249 lb) 09/14/2019 2:40 PM DRAWER UPFITTER Height 167.6 cm (5' 6 ) 09/14/2019 2:40 PM DRAWER UPFITTER Body Mass Index 40.19 09/14/2019 2:40 PM DRAWER UPFITTER Procedures * PATHOLOGY/GENETICS HISTORICAL-ONBASE(Performed 07/19/2009) * PATHOLOGY/GENETICS HISTORICAL-ONBASE(Performed 07/19/2009) Results * PATHOLOGY/GENETICS HISTORICAL-ONBASE (07/19/2009) Only the most recent of2 resultswithin the time period is included. 07/19/2009 Historical Provider LAB - CHEMISTRY O RDERABLES [facility] Care Teams Educational Program Assistant Relationship Specialty Start Date End Date Radha Lorenzo, TAX ACCOUNTANT-RECOATER [address] [place] [address] PCP - General 11/14/19
--- OUTSIDE RECORDS SUMMARY | 2024-11-11 08:24 | XMS_ITS | Referral Summary ---
Author Organization [facility] Address [address] [place] [address] Care Team Providers Care Bank Reconciliator Name Role Phone LorenzoRadha APRN-POWER PLANT ASSISTANT Primary Care Provider Source Comments [facility],non-owned Affiliates and Associated Physician Practices is amultiple site organization consisting of ambulatory clinics and hospital sitesin [place], [place], [place] and [place]. This disclosure is being madepursuant to the Care Everywhere program and may not contain all information available regarding this patient. Last updated 18.[facility] Allergies Active Allergy Reactions Criticality Noted Date Comments Cetirizine Hcl 07/23/2011 Erythromycin 01/01/2011 (?), (?), (?) Medications * Be aware that medications may not be up to date on this document. Alwaysverify current medications with the patient. Medication Sig Dispensed Refills Start Date End Date Status azelastine-fluticason e (DYMISTA) 137-50 MCG/ACT nasal spray [place] 1 puff into the nose BID. 1 [...] Comments Blood Pressure 128/80 09/14/2019 2:40 PM RESIDENCY DIRECTOR Pulse 92 09/14/2019 2:40 PM RESIDENCY DIRECTOR Temperature - - Respiratory Rate 12 05/08/2015 9:14 AM CDT Oxygen Saturation 95% 09/14/2019 2:40 PM RESIDENCY DIRECTOR Inhaled Oxygen Concentration - - Weight 112.9 kg (249 lb) 09/14/2019 2:40 PM RESIDENCY DIRECTOR Height 167.6 cm (5' 6 ) 09/14/2019 2:40 PM RESIDENCY DIRECTOR Body Mass Index 40.19 09/14/2019 2:40 PM RESIDENCY DIRECTOR Plan of Treatment Not on file Care Teams Bank Reconciliator Relationship Specialty Start Date End Date Radha Lorenzo, BRADLEY LINEBACKER CREWMEMBER-POWER PLANT ASSISTANT [address] [place] [address] PCP - General 11/14/19
--- OUTSIDE RECORDS SUMMARY | 2024-11-11 08:24 | XMS_ITS | Clinical Summary ---
Author Organization [facility] Address [address] [place] [address] Care Team Providers Care Screw Machine Tool Setter Name Role Phone LorenzoRadha APRN-FORCER MAKER Primary Care Provider Source Comments [facility],non-owned Affiliates and Associated Physician Practices is amultiple site organization consisting of ambulatory clinics and hospital sitesin [place], [place], [place] and [place]. This disclosure is being madepursuant to the Care Everywhere program and may not contain all information available regarding this patient. Last updated 18.[facility] Allergies Active Allergy Reactions Criticality Noted Date Comments Cetirizine Hcl 07/23/2011 Erythromycin 01/01/2011 (?), (?), (?) Medications * Be aware that medications may not be up to date on this document. Alwaysverify current medications with the patient. Medication Sig Dispensed Refills Start Date End Date Status azelastine-fluticason e (DYMISTA) 137-50 MCG/ACT nasal spray [place] 1 puff into the nose BID. 1 [...] Comments Blood Pressure 128/80 09/14/2019 2:40 PM ELEVATOR RUNNER Pulse 92 09/14/2019 2:40 PM ELEVATOR RUNNER Temperature - - Respiratory Rate 12 05/08/2015 9:14 AM CDT Oxygen Saturation 95% 09/14/2019 2:40 PM ELEVATOR RUNNER Inhaled Oxygen Concentration - - Weight 112.9 kg (249 lb) 09/14/2019 2:40 PM ELEVATOR RUNNER Height 167.6 cm (5' 6 ) 09/14/2019 2:40 PM ELEVATOR RUNNER Body Mass Index 40.19 09/14/2019 2:40 PM ELEVATOR RUNNER Plan of Treatment Health Maintenance Due Date [...] age to complete this topic Care Teams Screw Machine Tool Setter Relationship Specialty Start Date End Date Radha Lorenzo, DOOR CLAMPER-FORCER MAKER [address] [place] [address] PCP - General 11/14/19
--- OUTSIDE RECORDS SUMMARY | 2024-12-28 12:57 | XMS_ITS | Clinical Summary ---
Author Organization [facility] Address [address] [place] [address] Care Team Providers Care Day Care Supervisor Name Role Phone Radha Lorenzo CNC OPERATOR PROGRAMMER-MULTIMEDIA MANAGER Primary Care Provider Source Comments [facility],non-owned Affiliates and Associated Physician Practices is amultiple site organization consisting of ambulatory clinics and hospital sitesin [place], [place], [place] and [place]. This disclosure is being madepursuant to the Care Everywhere program and may not contain all information available regarding this patient. Last updated 18.[facility] Allergies Active Allergy Reactions Criticality Noted Date Comments Cetirizine Hcl 07/23/2011 Erythromycin 01/01/2011 (?), (?), (?) Medications * Be aware that medications may not be up to date on this document. Alwaysverify current medications with the patient. azelastine-fluti casone (DYMISTA) 137-50 MCG/ACT nasal spray [place] 1 puff into the nose BID. 1 bottles 1 06/23/2017 Active loratadine (CLARITIN) 10 MG tablet Take 10 mg by mouth DAILY. 06/23/2017 Active Fexofenadine-Pse udoephedrine (JOSE-D 24 HOUR PO) Take 1 tablet [...] = 0.6 oz pur e alcohol) Comments Unknown Sex and Gender Information Value Date Recorded Sex Assigned at Not on file Legal Sex Female 5:22 PM JEWELRY FACER Gender Identity Not on file Sexual Orientation Not on file Last Filed Vital Signs Vital Sign Reading Time Taken Comments Blood Pressure 128/80 09/14/2019 2:40 PM JEWELRY FACER Pulse 92 09/14/2019 2:40 PM JEWELRY FACER Temperature - - Respiratory Rate 12 05/08/2015 9:14 AM CDT Oxygen Saturation 95% 09/14/2019 2:40 PM JEWELRY FACER Inhaled Oxygen Concentration - - Weight 112.9 kg (249 lb) 09/14/2019 2:40 PM JEWELRY FACER Height 167.6 cm (5' 6 ) 09/14/2019 2:40 PM JEWELRY FACER Body Mass Index 40.19 09/14/2019 2:40 PM JEWELRY FACER Plan of Treatment Health Maintenance Due Date [...] VACCINE (1 - 2023-2 5 season) 2024 DEPRESSION SCREENING 08/31/2024 INFLUENZA VACCINE (Season Ended) 2025 HEPATITIS B VACCINE Aged Out No longe [...] on patient's age to complete this topic Insurance SELF PAY NO INSURANCE Member Subscriber Plan / Payer (Ef fective for All Dates) Name:Francine Loera Member ID:Not on file Relation to Subscriber:Not on file Name:FRANCINE LOERA Subscriber ID:Not on file (Home) Address: [address] [place] [address] Payer ID:Not on file Group ID:Not on file Type:Self Pay Address: [place], [place] [employer] Care Teams Day Care Supervisor Relationship Specialty Start Date End Date Radha Lorenzo, CNC OPERATOR PROGRAMMER-MULTIMEDIA MANAGER [address] [place] [address] PCP - General 11/14/19
--- OUTSIDE RECORDS SUMMARY | 2024-12-28 12:57 | XMS_ITS | Clinical Summary ---
Author Organization [facility] Care Team Providers Care Senior Grants Officer Name Role Phone Unavailable Primary Care Provider Unavailabl e Social History Tobacco Use Types Packs/Day Years Used Date Smoking Tobacco: Never Assessed Comments Unknown Sex and Gender Information Value Date Recorded Sex Assigned at Not on file Legal Sex Female 12:08 PM FOOD SCIENTIST Gender Identity Not on file Sexual Orientation [...]
--- OUTSIDE RECORDS SUMMARY | 2024-12-28 12:58 | XMS_ITS | Continuity of Care Document ---
Author Organization [facility] Address [address] [place] [address] Phone Care Team Providers Care Supervisor Refining Name Role Phone Karena Johnson Unavailable Unavailable Advance Directives Directive Yes / No Effective Date File Name No Information Encounters Encounter Description Practice Location Reason(s) For Visit Diagnoses Date Provider Providers Copied on Encounter [facility], [address], [place], [place], [id number], [place] tel:[phone] [facility] No Information Mar-1 0-200 3 Elizabeth Thurston. [address] , [address], [place], [address], [place]. tel:[phone] Family History Family Member Type Diagnosis Age At Onset No Information Payers Payer name Insurance type Covered democrat ID Authoriza tion(s) No Information Social History [...]
--- OUTSIDE RECORDS SUMMARY | 2024-12-28 12:58 | XMS_ITS | Clinical Summary ---
Author Organization [facility] Address [address] [place] [address] Care Team Providers Care Dispatcher Street Department Name Role Phone Teetee Lindsey MD Unavailable [phone] Radha Webb NP Primary Care Provider [phone] Allergies Active Allergy Reactions Criticality Noted Date Comments Erythromycin Stomach upset Low 01/01/2011 Medications loratadine 10 mg capsule Take 1 tablet by mouth every morning 5 Active fzeyc-0-iwg-epa -dpa-fish oil 1,050-1,200 mg capsule Take 1 capsule by mouth every morning [address] (PROTONIX) 40 mg EC tablet Take 1 tablet (40 mg total) by mouth every morning 1 Active apple cider vinegar 300 mg tablet Take 1 tablet by mouth every morning 0 Active vitamin E (AQUASOL E) 100 unit capsule Take 1 capsule (100 Units total) by mouth every morning Active inulin (FIBER GUMMIES ORAL) Take 1 tablet/chew tab by mouth every morning Active multivit-minera ls/folic acid (MULTIVITAMIN GUMMIES ORAL) Take 1 tablet/chew tab by mouth with lunch Active metformin HCl (METFORMIN ORAL) Take 1 tablet by mouth every evening Active azelastine-flut icasone 137-50 mcg/spray spray,non-aeros ol 1 spray as needed (allergies) 5 Active levothyroxine (SYNTHROID) 137 mcg tablet Take 1 tablet (137 mcg total) by mouth 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 Active glucosamine sulfate (GLUCOSAMINE ORAL) Take 1 tablet/chew tab by mouth with lunch Active CALCIUM ORAL Take 1 tablet/chew tab by mouth with lunch Active ibuprofen 200 mg tab/cap Take 2 tablet/capsul e (400 mg total) by mouth every 6 (six) hours as needed for pain Active acetaminophen (TYLENOL) 500 mg tabletIndicatio ns:Pain Take 1 tablet (500 mg total) by mouth every 6 (six) hours as needed for pain Active docusate sodium (COLACE) 100 mg capsuleIndicati ons:constipatio n Take 1 capsule (100 mg total) by mouth 2 (two) times a day with a glass of water 8 capsule 5 Active oxyCODONE (ROXICODONE) 5 mg immediate release tabletIndicatio ns:Pain Take 1 tablet (5 mg total) by mouth every 4 (four) hours as needed for pain 5 tablet 5 Active Euthyrox 137 mcg tabletIndicatio ns:hypothyroidi sm Take 1 tablet (137 mcg total) by mouth 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 1 11/30/19 25 Discontinu ed(Alterna te therapy) fish oil-dha-epa 1,200-144-216 mg capsuleIndicati ons:supplement Take 1 tablet by mouth every morning 11/30/19 25 Discontinu ed(Alterna te therapy) calcium carb-mag hydrox-simeth 1,200 mg-270 mg -80 mg/10 mL suspension Take by mouth 11/30/19 25 Discontinu ed(Therapy completed) Active Problems Problem Noted Date Diagnosed Date Ductal carcinoma in situ (DCIS) of right breast 11/16/2024 Abnormal mammogram 04/12/2021 Hypothyroidism 01/14/2014 Overview (12/06/2016): HYPOTHYROIDISM NOS Vitamin D deficiency 01/14/2014 Overview (12/06/2016): Vitamin D deficiency Encounters Date Type Department Care Team Description 12/20/2024 12:35 PM CDT Anesthesia Event [facility] ([facility]) [address] [place] [id number] Kulwinder Rangel MD Morrison, Lauren Michele, NP 12/20/2024 12:30 PM CDT - 12/20/2024 2:00 PM CDT Surgery [facility] ([facility]) [address] [place] [phone] Jamila Horne MD PhD BIOPSY BREAST NEEDLE LOCALIZATION 12/20/2024 8:46 AM CDT - 12/20/2024 11:59 PM CDT Hospital Encounter [facility] ([facility]) [address] [place] [id number] Encounter for other preprocedural examination Discharge Disposition: Discharge to home or self care 12/20/2024 7:44 AM CDT - 12/20/2024 3:08 PM CDT Hospital Encounter [facility] ([facility]) [address] [place] [phone] Jamila Horne MD PhD Ductal carcinoma in situ (DCIS) of right breast Discharge Disposition: Discharge to home or self care 12/20/2024 6:45 AM CDT - 12/20/2024 11:59 PM CDT Hospital Encounter [facility] ([facility]) [address] [place] [phone] Encounter for other preprocedural examination Discharge Disposition: Discharge to home or self care 11/25/2024 Telephone [facility] [address] [place] [phone] Jamila Horne MD PhD Scheduling Appointments 11/16/2024 Orders Only [facility] Surgery [address] [place] [address] [address] [place] [address] Jamila Horne MD PhD Encounter for other preprocedural examination (Primary Dx) 11/14/2024 Telephone [facility] Surgery [address] [place] [address] [address] [place] [address] Jamila Horne MD PhD Medical Question/Miscellaneo us 11/11/2024 Telephone [facility] [address] [facility] [address] [place] [address] Jamila Horne MD PhD Medical Question/Miscellaneo us 10/28/2024 Telephone [facility] [address] [place] [phone] Jamila Horne MD PhD 10/24/2024 3:00 PM MEDICAL FRONT DESK SPECIALIST Office Visit [facility] [address] [place] [address] [address] [place] [address] Coleen, Jamila Chris MD PhD Ductal carcinoma in situ (DCIS) of right breast 10/20/2024 11:27 AM MEDICAL FRONT DESK SPECIALIST - 10/20/2024 11:59 PM MEDICAL FRONT DESK SPECIALIST Hospital Encounter [facility] ([facility]) [address] [place] [phone] Coleen, Jamila Chris MD PhD Ductal carcinoma in situ (DCIS) of right breast Discharge Disposition: Discharge to home or self care 10/06/2024 Orders Only [facility] [address] [place] [phone] Coleen, Jamila Chris MD PhD Ductal carcinoma in situ (DCIS) of right breast (Primary Dx) 10/06/2024 Telephone [facility] ([facility]) [address] [place] [phone] Sofia Peters RN Test Results (Right breast biopsy results ) 10/03/2024 12:56 PM MEDICAL FRONT DESK SPECIALIST - 10/03/2024 11:59 PM MEDICAL FRONT DESK SPECIALIST Hospital Encounter [facility] ([facility]) [address] [place] [phone] Abnormal mammogram Discharge Disposition: Discharge to home or self care 10/03/2024 11:57 AM MEDICAL FRONT DESK SPECIALIST - 10/03/2024 11:59 PM MEDICAL FRONT DESK SPECIALIST Hospital Encounter [facility] ([facility]) [address] [place] [phone] Abnormal mammogram Discharge Disposition: Discharge to home or self care from Last 3 Months Immunizations Immunization Administration Dates Next Due Influenza, Quadrivalent, Spl it, Preservative Free, Intramuscular 06/19/2020 Pfizer SARS-CoV-2 Monovalent Vaccination (12+ Yrs) PURPLE 11/30/2020,11/09/2020 Surgical History Surgery Date Site/Laterality Comments APPENDECTOMY 1990s TONSILLECTOMY childhood BREAST BIOPSY 10/03/2024 Right SINUS SURGERY 08/31/2004 - 08/30/2005 OTHER SURGICAL HISTORY 08/31/2024 - 08/30/2025 excision of facial growths TOOTH EXTRACTION 08/31/2024 - 08/30/2025 Medical History Medical History Date Comments Hx Other Medical DNS surgery Disorder of thyroid Thyroid dise ase Hx Other Medical Claustrophobic; Comments: GFC 04/25/2014 - Diabetes (HCC) Overweight Hypothyroidism Type 2 diabetes mellitus (HCC) Cancer (HCC) Family History Medical History Relation Name Comments Prostate cancer Father Bladder Cancer Mother's Brother Melanoma Paternal Grandfather Skin cancer Paternal Grandfather Thyroid disease Sister Thyroid dise ase; Anesthesia problems Neg Hx Relation Name Status Comments Father Mother's Brother Paternal Grandfather Sister Social History Tobacco Use Types Packs/Day Years Used Date Smoking Tobacco: Never Smokeless Tobacco: Never Tobacco Cessation:Counseling Given: Not Answered Alcohol Use Standard Drinks/Week Comments Yes 0 (1 standard drink = 0.6 oz pur e alcohol) AUDIT-C Answer Date Recorded Q1: How often do you have a drink containing alc ohol? 2-3 times a week 12/20/2024 Q2: How many drinks containi ng alcohol do you have on a typical day when you are drinking? 3 or 4 12/20/2024 Q3: How often do you have si x or more drinks on one occasion? Never 12/20/2024 Personal Safety Answer Date Recorded Have you ever been in or are you currently in a harmful physical or emotional relationship or is someone making you feel afraid or unsafe? Denies 12/20/2024 Comments No Sex and Gender Information Value Date Recorded Sex Assigned at Not on file Legal Sex Female 10:58 AM MEDICAL FRONT DESK SPECIALIST Gender Identity Female 04/10/2021 1:17 PM CDT Sexual Orientation Straight 04/10/2021 1: 17 PM CDT Obstetrics History Last Filed Vital Signs Vital Sign Reading Time Taken Comments Blood Pressure 153/83 12/20/2024 2:30 PM CDT Pulse 88 12/20/2024 2:30 PM CDT Temperature 36.4 C (97.5 F) 12/20/2024 2:30 PM CDT Respiratory Rate 17 12/20/2024 2:30 PM CDT Oxygen Saturation 95% 12/20/2024 2:30 PM CDT Inhaled Oxygen Concentration - - Weight 104.3 kg (230 lb) 12/20/2024 8:29 AM CDT Height 165.1 cm (5' 5 ) 11/29/2024 3:25 PM CDT Body Mass Index 38.27 11/29/2024 3:25 PM CDT Plan of Treatment Health Maintenance Due Date Last Done Comments Cervical Cancer Screening 1960 Colon Cancer Screening-Colonoscopy 1960 Depression Screening 1960 Hepatitis C Screening 1960 DTaP/Tdap/Td Vaccine (1 - Tdap) 1973 Hepatitis B Screening 1980 Regular Well Visit/Exam 18-64 1980 Zoster Vaccine (1 of 2) 2012 Covid-19 Vaccine (3 - 2023-2 5 season) 2024 11/30/2020, 11/09/2020 Influenza Vaccine (Season Ended) 2025 06/19/2020 Breast Cancer Screening-Mammogram 08/25/2025 08/25/2024, 06/02/2023, 04/22/2022 Pneumococcal vaccine <65 Aged Out No longer eligible based on patient's age to complete this topic Medical Devices Implanted Type Area Meter Mechanic Device Identifier Shelf Expiration Date Model / Serial / Lot Bard Peripheral Vascular Ultraclip Bard 17ga 10cm 2 Trigger Permanent Ultrasound [id number] - [id number] Implanted:Qty: 1 on 10/03/2024 by Corine Campuzano MD at [facility] Right: Breast [employer] Peripheral V[employer] [id number] / / Bard Peripheral Vascular Ghiatas 20ga 20cm 7cm Beaded Needle Breast Wire Localization [id number] - [id number] Implanted:Qty: 1 on 12/20/[address] [facility] Right: Breast [employer] Peripheral Vascular [id number] / / Procedures Procedure Name Priority Date/Time Associated Diagnosis Comments RADIOLOGIC EXAMINATION OF SURGICAL SPECIMEN Schedule Routine, Read Routine (OP Routine) 12/20/2024 1:10 PM CDT Encounter for other preprocedural examination SURGICAL PATHOLOGY Routine 12/20/2024 1: 02 PM CDT Ductal carcinoma in situ (DCIS) of right breast AL AN PROCEDURE PLACEHOLDER Routine 12/20/2024 12:54 PM CDT AL AN ELECTIVE SUPRAGLOTTIC AIRWAY Routine 12/20/2024 12:54 PM CDT LUMPECTOMY 12/20/2024 12:37 PM CDT Ductal carcinoma in situ (DCIS) of right breast Special Needs Faxitron BIOPSY BREAST NEEDLE LOCALIZATION 12/20/2024 12:37 PM CDT Ductal carcinoma in situ (DCIS) of right breast Special Needs Faxitron MAMMO GUIDED LOCALIZATION BREAST RIGHT Schedule Routine, Read Routine (OP Routine) 12/20/2024 9:57 AM CDT Encounter for other preprocedural examination MRI BREAST BILATERAL W WO CONTRAST Schedule Routine, Read Routine (OP Routine) 10/20/2024 12:46 PM MEDICAL FRONT DESK SPECIALIST Ductal carcinoma in situ (DCIS) of right breast GUSTAVO POST CLIP PLACEMENT RIGHT Schedule Routine, Read Routine (OP Routine) 10/03/2024 1:40 PM MEDICAL FRONT DESK SPECIALIST Abnormal mammogram US GUIDED BREAST BIOPSY RIGHT Schedule Routine, Read Routine (OP Routine) 10/03/2024 1:26 PM MEDICAL FRONT DESK SPECIALIST Abnormal mammogram SURGICAL PATHOLOGY Routine 10/03/2024 1: 15 PM MEDICAL FRONT DESK SPECIALIST Abnormal mammogram SCREENING MAMMOGRAM BILATERAL W GUSTAVO Schedule Routine, Read Routine (OP Routine) 08/25/2024 10:33 AM MEDICAL FRONT DESK SPECIALIST Screening mammogram, encounter for from Last 3 Months or Most Recently Relevant to Health Maintenance Results * Radiologic Examination of Surgical Specimen (12/20/2024 1:10 PM CDT) Anatomical Region Laterality Modality Breast N/A Mammography 12/20/2024 2:02 PM CDT Impressions 12/20/2024 2:02 PM CDT FINDINGS/IMPRESSION: A RIGHT surgical specimen was received from the operating room and was imaged using digital radiography. The calcifications of interest are seen at the lateral aspect of the surgical specimen. The ribbon tissue marker is not included (it was displaced posteriorly). These findings were communicated to the surgeon. Electronically signed by: Debbie Teran M.D. Narrative 12/20/2024 2:02 PM CDT EXAMINATION: RADIOLOGIC EXAMINATION OF RIGHT SURGICAL SPECIMEN HISTORY: Patient has right breast papillary ductal carcinoma in situ. Procedure Note Debbie Teran MD - 12/20/2024 EXAMINATION: RADIOLOGIC EXAMINATION OF RIGHT SURGICAL SPECIMEN HISTORY: Patient has right breast papillary ductal carcinoma in situ. IMPRESSION: FINDINGS/IMPRESSION: A RIGHT surgical specimen was received from the operating room and was imaged using digital radiography. The calcifications of interest are seen at the lateral aspect of the surgical specimen. The ribbon tissue marker is not included (it was displaced posteriorly). These findings were communicated to the surgeon. Electronically signed by: Debbie Teran M.D. Jamila Horne MD PhD IMG MAMMO PROCEDURES Final Result * Surgical pathology (12/20/2024 1:02 PM CDT) Tissue (Breast, lumpectomy) 12/20/2024 1:02 PM CDT Tissue specimen (specimen) (Breast Additional Margin) 12/20/2024 1:07 PM CDT Narrative PATHOLOGY [facility] - 12/26/2024 11:21 AM CDT EPIC results best viewed via link to PDF [facility] Path[place] [address] Note to Patients: This report may contain [...] Gender: F : 1960 (Age: 64) Address: [address] [place], [place] [id number] [facility] #: [id number] Taken:12/20/2024 Received:12/20/2024 Reported: 12/26/2024 Patient Type: [facility] Service: Oncology Location: Physician(s): Tapan Pedersen M.D. Angela M. Lytle, NP Diagnosis: A. Right breast cancer long stitch lateral short stitch superior: - Ductal carcinoma in situ, cri biform and papillary type, grade 2, 5 mm in greatest dimension - DCIS is 1 mm from anterior, inferior and posterior margins, 2 mm from superior margin, in the lateral portion of the specimen - New anterior lateral margin, negative for tumor, see part B B. New anterior lateral margin stitch on new margin: - Focal atypical duct hyperplasia - Margins negative for DCIS [facility]/12/26/2024 11:21 By this signature, I attest that the above diagnosis is based upon my personal examination of the slides(and/or other material indicated in the diagnosis). Davi Perry M.D. Report Electronically Reviewed and Signed Out By Davi Perry M.D. 12/26/2024 11:21:37 History: The patient is a 64-year-old woman with history of ductal carcinoma in-situ of right breast. Operative procedure: Breast needle localization biopsy and lumpectomy Specimen(s) Received: A: Right breast cancer long stitch lateral short stitch superior B: New anterior lateral margin stitch on new margin Gross Description: Received in two formalin jars labeled with the patient's identifiers. A. Labeled right breast cancer, long stitch lateral, short stitch superior -Collected: 1302 on 12/20/2024 -Received: 1322 on 12/20/2024 -Placed in formalin: 1323 on 12/20/2024 -Cold ischemic time: 21 mins -Formalin Fixation time: 31.5-32.0 hours -Specimen dimensions: Medial to Lateral: 3.5-4.7 cm Superior to Inferior: 3.2 cm Anterior to Posterior: 1.9-2.4 cm -Skin dimensions: No skin included -Weight: 15.6 g -Orientation: Short stitch superior, long stitch lateral - Margins inked: Superior: Blue Inferior: Green Anterior: Yellow Posterior: Black -Sectioned: Medial to lateral -Number of slices: 11 -Gross findings: The cut surface is cohen-yellow and lobulated. Slice 11 Is remarkable for a 0.6 x 0.5 x 0.5 cm cohen-white firm ill-defined area that comes within 0.1 cm from the lateral margin, 0.6 cm from the posterior margin, 0.4 cm from the anterior margin, 0.7 cm from the inferior margin, 0.9 cm from the superior margin, and greater than 2.0 cm from the medial margin. Superior: 0.9 cm Inferior: 0.7 cm Anterior: 0.4 cm Posterior: 0.6 cm Medial: Greater than 2.0 cm Lateral: 0.1 cm -Specimen radiographed: Yes -Radiograph findings: Localization wire enters into the specimen from the medial aspect, no biopsy clip is grossly identified. -Diagram: No -Additional notes: None Summary of sections: A1 Slice 1, medial margin, perpendicularly sectioned A2 Slice 2 A3 Slice 3 A4 Slice 4 A5 Slice 5 A6 Slice 6 A7 Slice 7 A8 Slice 8 A9 Slice 9 A10 Slice 10 A11 Slice 11 with lesion, lateral margin, perpendicularly sectioned A12 Slice 11 Jar: 0 B. Labeled new anterior lateral margin. Stitch on new margin is a 4.5 x 1.8 x 1.7 cm oriented breast margin reexcision specimen with a black stitch designating new margin, inked black comprised of a single fragment of cohen-yellow fatty tissue. Sectioning reveals a cohen-yellow lobulated cut surface with patchy fibrous areas. No discrete lesion is grossly identified. The specimen is entirely submitted. Labeled B1 to B5. Jar 0. 12/21/2024 10:18 PA(s): Mindy Conley MS, PA(ASCP)CM CANCER CASE SUMMARY FOR DUCTAL CARCINOMA IN SITU (DCIS) OF THE BREAST Procedure: Excision (less than total mastectomy) Specimen laterality: Right Tumor site: Not specified Size (extent) of DCIS: Greatest dimension (using gross & microscopic evaluation): at least 5 mm Number of blocks with DCIS: 3 Histologic type: Ductal carcinoma in situ Architectural patterns: Cribriform Micropapillary Nuclear grade: Grade 2 (intermediate) Necrosis: Not identified Margins: All margins negative for DCIS Distance from closest margin: 1 mm Closest margin: anterior, posterior and inferior Regional lymph nodes: Not applicable (no regional lymph nodes submitted or found) Pathologic stage classification (pTNM, AJCC 8th Edition): Primary tumor (pT): pTis (DCIS): Ductal carcinoma in situ Breast Biomarker Testing performed on Previous Case: [id number] Estrogen Receptor (ER): Positive 100% Positive Heather score 8/8 The pathologic stage assigned here should be regarded as provisional, and may change after integration of clinical data not provided with this report. CAP VERSION: Breast DCIS 4.4.0.0 By this signature, I attest that the above diagnosis is based upon my personal examination of the slides(and/or other material). Addenda/Procedures The performance characteristics of some immunohistochemical stains, fluorescence in-situ hybridization tests and immunophenotyping by flow cytometry cited in this report (if any) were determined by the Surgical Pathology and Flow Cytometry Departments at [facility] as part of an ongoing senior quality methods specialist program and in compliance with federally mandated [...] Surgical Pathology and Flow Cytometry Departments of [facility]. It has not been cleared or approved by the U. S. Food and Drug Administration. IMAGES AND SCANNED DOCUMENTS, IF INCLUDED, ONLY VIEWABLE IN PDF VERSION OF REPORT Jamila Horne MD PhD LAB PATHOLOGY ORDERABLES F inal Result PATHOLOGY [facility] 3rd Floor [place], [place] [phone] * AL AN ELECTIVE SUPRAGLOTTIC AIRWAY, AL AN PROCEDURE PLACEHOLDER (12/20/2024 12:54 PM CDT) Narrative Chelo Mckoy CRNA - 12/20/2024 12:54 PM CDT Chelo Mckoy CRNA 12/20/2024 12:54 PM Airway Patient location: OR Urgency: elective Indications for airway management: anesthesia Difficult airway: no Staff: Placed by: PARTS INTERPRETER: Chelo Mckoy CRNA Emergent airway documentation: Risks and benefits discussed: yes Consent obtained: yes Consent given by: patient Airway prep: Preoxygenated: yes Patient position: sniffing Mask difficulty assessment: 0 - not attempted Sedation level during airway: GA Final airway details: Final airway type: supraglottic airway Final supraglottic airway: IGel SGA size: 4 Number of attempts: 1 Additional comments: LMA placed atraumatically. Preop dentition unchanged Kulwinder Rangel MD ANESTHESIA ORDERABLES Final Result * Mammo Guided Localization Breast Right (12/20/2024 9:57 AM CDT) Anatomical Region Laterality Modality Breast Right Mammography 12/20/2024 2:24 PM CDT Impressions 12/20/2024 2:24 PM CDT Successful wire localization of the area of interest within the RIGHT breast using mammographic guidance. Electronically signed by: Serena Elise M.D. Narrative 12/20/2024 2:24 PM CDT EXAMINATION: RIGHT BREAST NEEDLE LOCALIZATION UTILIZING MAMMOGRAPHIC GUIDANCE AND A SINGLE WIRE HISTORY: 64-year-old woman with screening detected papillary ductal carcinoma in situ in the central slightly inner right breast. Of note, the ribbon tissue marker is displaced approximately 2 cm posterior to the mass. The residual mass/calcifications were localized. PROCEDURE AND FINDINGS: The procedure was discussed with the patient and informed consent was obtained. The breast was placed in a compression grid, and the area of interest was localized with digital mammography. After sterile preparation of the skin, 1% lidocaine was utilized for local anesthesia. A hook-wire system was advanced into the area of interest in the breast from a medial approach utilizing digital mammographic guidance. Orthogonal views were obtained to confirm appropriate needle/wire position. There was no evidence of significant immediate complication. The images were marked for the surgeon, and the patient was transferred to the operating suite for surgical excision. The attending radiologist, Dr. Serena Elise M.D., was present throughout the entire procedure. Dr. Glen Sahni (diagnostic cco & president) also participated in this examination. Procedure Note Serena Elise MD - 12/20/2024 EXAMINATION: RIGHT BREAST NEEDLE LOCALIZATION UTILIZING MAMMOGRAPHIC GUIDANCE AND A SINGLE WIRE HISTORY: 64-year-old woman with screening detected papillary ductal carcinoma in situ in the central slightly inner right breast. Of note, the ribbon tissue marker is displaced approximately 2 cm posterior to the mass. The residual mass/calcifications were localized. PROCEDURE AND FINDINGS: The procedure was discussed with the patient and informed consent was obtained. The breast was placed in a compression grid, and the area of interest was localized with digital mammography. After sterile preparation of the skin, 1% lidocaine was utilized for local anesthesia. A hook-wire system was advanced into the area of interest in the breast from a medial approach utilizing digital mammographic guidance. Orthogonal views were obtained to confirm appropriate needle/wire position. There was no evidence of significant immediate complication. The images were marked for the surgeon, and the patient was transferred to the operating suite for surgical excision. The attending radiologist, Dr. Serena Elise M.D., was present throughout the entire procedure. Dr. Glen Sahni (diagnostic cco & president) also participated in this examination. IMPRESSION: Successful wire localization of the area of interest within the RIGHT breast using mammographic guidance. Electronically signed by: Serena Elise M.D. us Jamila Horne MD PhD IMG MAMMO PROCEDURES Final Result * MRI Breast Bilateral W WO Contrast (10/20/2024 12:46 PM MEDICAL FRONT DESK SPECIALIST) Anatomical Region Laterality Modality Breast Bilateral Magnetic Resonan ce 10/20/2024 1:38 PM MEDICAL FRONT DESK SPECIALIST Impressions 10/20/2024 1:59 PM MEDICAL FRONT DESK SPECIALIST 1. A 0.6 cm enhancing mass in [...] Jacklyn Mcwilliams M.D. Narrative 10/20/2024 1:59 PM MEDICAL FRONT DESK SPECIALIST EXAMINATION: 1. MRI EXAMINATION OF THE BREASTS [...] Post Clip Placement Right (10/03/2024 1:40 PM MEDICAL FRONT DESK SPECIALIST) Anatomical Region Laterality Modality Breast Right Mammography 10/03/2024 5:10 PM MEDICAL FRONT DESK SPECIALIST Addenda Addendum by Corine Campuzano MD on 10/06/2024 8:01 AM MEDICAL FRONT DESK SPECIALIST ADDENDUM: Pathology from biopsy of the right [...] will be discussed with the patient by [facility] or referring provider staff and will be separately documented in the medical record. Electronically signed by: Corine Campuzano M.D. Impressions 10/03/2024 5:10 PM MEDICAL FRONT DESK SPECIALIST Successful core needle biopsy of the RIGHT breast. Pathology is pending. ASSESSMENT: Post Procedure Mammograms for Marker Placement Electronically signed by: Corine Campuzano M.D. Narrative 10/03/2024 5:10 PM MEDICAL FRONT DESK SPECIALIST EXAMINATION: RIGHT BREAST CORE BIOPSY UTILIZING SONOGRAPHIC [...] Guided Breast Biopsy Right (10/03/2024 1:26 PM MEDICAL FRONT DESK SPECIALIST) Anatomical Region Laterality Modality Breast Right Mammography 10/03/2024 5:10 PM MEDICAL FRONT DESK SPECIALIST Addenda Addendum by Corine Campuzano MD on 10/06/2024 8:01 AM MEDICAL FRONT DESK SPECIALIST ADDENDUM: Pathology from biopsy of the right [...] be discussed with the patient by Breast [facility] or referring provider staff and will be separately documented in the medical record. Electronically signed by: Corine Campuzano M.D. Impressions 10/03/2024 5:10 PM MEDICAL FRONT DESK SPECIALIST Successful core needle biopsy of the RIGHT breast. Pathology is pending. ASSESSMENT: Post Procedure Mammograms for Marker Placement Electronically signed by: Corine Campuzano M.D. Narrative 10/03/2024 5:10 PM MEDICAL FRONT DESK SPECIALIST EXAMINATION: RIGHT BREAST CORE BIOPSY UTILIZING SONOGRAPHIC [...] localization if needed. The attending radiologist, Dr. Coirne Campuzano M.D., was present throughout the entire [...] by: Corine Campuzano M.D. Radha Webb NP G MAMMO PROCEDURES Edite d Result - Final * Surgical pathology (10/03/2024 1:15 PM MEDICAL FRONT DESK SPECIALIST) Tissue specimen (specimen) (Breast biopsy, needle core) 10/03/2024 1:15 PM MEDICAL FRONT DESK SPECIALIST Comment:right breast 2:30 3 cm/fn, ultrasound biopsy, birads 4a. This is a 1.2 cm oval mass with slightly indistinct margins and calcifications which may represent a degenerating fibroadenoma, fibrocystic change, or less likely malignancy. Narrative PATHOLOGY [facility] - 10/05/2024 4:39 PM MEDICAL FRONT DESK SPECIALIST EPIC results best viewed via link to PDF [facility] [place] [address] Note to Patients: This report may contain [...] Gender: F : 1960 (Age: 64) Address: [address] [place] [id number] Hospital #: [id number] Taken:10/03/2024 Received:10/03/2024 Reported: 10/05/2024 Patient Type: [facility] Ancillary Service: UNKNOWN Location: Physician(s): Radha Webb [...] This case is reviewed in consensus for senior quality methods specialist. Danny Nevarez M.D. History: The patient is [...] after collection. Total fixation time= 8.0 hours. [facility]/10/03/2024 18:51 PA(s): Sofia Altamirano BREAST BIOMARKER RESULTS ESTROGEN RECEPTOR: Positive Heather Score: Proportion 5/5 Intensity 3/3 Total Score 8/8 PROGESTERONE RECEPTOR: Not evaluated HER-2: Not evaluated TUMOR HISTOLOGIC TYPE: Ductal carcinoma in situ HISTOLOGICAL GRADE BY ESBR CRITERIA: N/A (for DCIS or metastatic carcinoma) Technical Notes Estrogen receptor (ER), progesterone receptor (AL), and HER2 were evaluated by immunohistochemistry (IHC) by morphometric analysis in routine formalin-fixed paraffin-embedded tissue using a proprietary polymer- based detection system and instrumentation by [employer] per buttonhole facer's recommendation. The IHC results for ER (antibody SP1) and AL (antibody 1E2) were quantified and interpreted (positive vs negative) using the Heather score (total score range = 0 to 8; positive >2) (see: Mod Pathol 11:155, 1998; J Clin Oncol 17:1474, 1999; Mod Pathol 17:1545, 2004; Arch Pathol Lab Med 144:545, 2020). Pathway Her2 is a trademark of [employer] The IHC results for Pathway Her2 [...] proprietary polymer-based detection system and instrumentation by [employer] per buttonhole facer's recommendation. The index was determined by manual [...] Surgical Pathology and Flow Cytometry Departments at [facility] as part of an ongoing senior quality methods specialist program and in compliance with federally mandated [...] Surgical Pathology and Flow Cytometry Departments of [facility]. It has not been cleared or approved by the U. S. Food and Drug Administration. IMAGES AND SCANNED DOCUMENTS, IF INCLUDED, ONLY VIEWABLE IN PDF VERSION OF REPORT us Radha Webb NP LAB PATHOLOGY ORDERABLES F inal Result PATHOLOGY [facility] 3rd Floor [place], [place] [phone] * Screening Mammogram Bilateral W Gustavo (08/25/2024 10:33 AM MEDICAL FRONT DESK SPECIALIST) Anatomical Region Laterality Modality Breast Bilateral Mammography Narrative 08/25/2024 2:36 PM MEDICAL FRONT DESK SPECIALIST Mammogram Technique: Bilateral Digital Breast Tomosynthesis, Bilateral C-view 2D Screening mammogram. Views obtained: bilateral craniocaudal and bilateral mediolateral oblique. Computer Aided Detection was performed. Mammogram Findings: The present examination has been compared to prior imaging studies performed at [facility] on 04/22/2022 and 06/02/2023, and at [facility]. [facility] on 03/25/2021. There are scattered areas of [...] compared to prior imaging studies performed at [facility] on 04/22/2022 and 06/02/2023, and at [facility] on 03/25/2021. There are scattered areas [...] Fi nal Result from Last 3 Months or Most Recently Relevant to Health Maintenance [facility] CHOICE PLUS AETNA [facility] HMO Care Teams Dispatcher Street Department Relationship Specialty Start Date End Date Radha Webb NP [address] [facility] [address] [place] [address] PCP - General Internal Medicine 07/26/24 Teetee Lindsey MD [address] [place] [address] [place] [address] Referring Physician Obstetrics and Gynecology 11/27/21
--- OUTSIDE RECORDS SUMMARY | 2024-12-28 12:58 | XMS_ITS | Referral Summary ---
Author Organization [facility] Address [address] [place] [address] Care Team Providers Care Merchandise Planning Manager Name Role Phone Teetee Lindsey MD Unavailable [phone] Radha Webb NP Primary Care Provider [phone] Encounters Date Type Department Care Team Description 12/20/2024 12:30 PM CDT - 12/20/2024 2:00 PM CDT Surgery [facility] Operating Room [facility] ([facility]) [address] [place] [phone] Aft, Jamila Chris MD PhD BIOPSY BREAST NEEDLE LOCALIZATION 12/20/2024 8:46 AM CDT - 12/20/2024 11:59 PM CDT Hospital Encounter [facility] Breast Imaging [facility] ([facility]) [address] [place] [phone] Encounter for other preprocedural examination Discharge Disposition: Discharge to home or self care 12/20/2024 6:45 AM CDT - 12/20/2024 11:59 PM CDT Hospital Encounter [facility] Breast Imaging [facility] ([facility]) [address] [place] [phone] Encounter for other preprocedural examination Discharge Disposition: Discharge to home or self care 12/20/2024 12:35 PM CDT Anesthesia Event [facility] Operating [facility] ([facility]) [address] [place] [phone] Kulwinder Rangel MD Morrison, Lauren Michele, NP 12/20/2024 7:44 AM CDT - 12/20/2024 3:08 PM CDT Hospital Encounter [facility] Operating Room [facility] ([facility]) [address] [place] [phone] Aft, Jamila Chris MD PhD Ductal carcinoma in situ (DCIS) of right breast Discharge Disposition: Discharge to home or self care 11/25/2024 Telephone [facility] Surgery [address] [place] [phone] Aft, Jamila Chris MD PhD Scheduling Appointments 11/16/2024 Orders Only [facility] Surgery [address] [place] [phone] Jamila Horne MD PhD Encounter for other preprocedural examination (Primary Dx) 11/14/2024 Telephone [facility] Surgery [address] [place] [phone] Sarat, Jamila Chris MD PhD Medical Question/Miscellaneo us 11/11/2024 Telephone [facility] - Breast Imaging [address] [place] [address] Jamila Horne MD PhD Medical Question/Miscellaneo us 10/28/2024 Telephone [facility] Surgery [address] [place] [phone] Jamila Horne MD PhD 10/24/2024 3:00 PM PHYSICAL THERAPIST CLINIC DIRECTOR Office Visit [facility] Surgery [address] [place] [phone] Coleen, Jamila Chris MD PhD Ductal carcinoma in situ (DCIS) of right breast 10/20/2024 11:27 AM PHYSICAL THERAPIST CLINIC DIRECTOR - 10/20/2024 11:59 PM PHYSICAL THERAPIST CLINIC DIRECTOR Hospital Encounter [facility] Radiology [facility] ([facility]) [address] [place] [phone] Aft, Jamila Chris MD PhD Ductal carcinoma in situ (DCIS) of right breast Discharge Disposition: Discharge to home or self care 10/06/2024 Orders Only [facility] Surgery [address] [facility] Floor [address] [place] [phone] Aft, Jamila Chris MD PhD Ductal carcinoma in situ (DCIS) of right breast (Primary Dx) 10/06/2024 Telephone [facility] Breast [facility] ([facility]) [address] [place] [address] Sofia Peters RN Test Results (Right breast biopsy results ) 10/03/2024 12:56 PM PHYSICAL THERAPIST CLINIC DIRECTOR - 10/03/2024 11:59 PM PHYSICAL THERAPIST CLINIC DIRECTOR Hospital Encounter [facility] Breast [facility] ([facility]) [address] [place] [address] Abnormal mammogram Discharge Disposition: Discharge to home or self care 10/03/2024 11:57 AM PHYSICAL THERAPIST CLINIC DIRECTOR - 10/03/2024 11:59 PM PHYSICAL THERAPIST CLINIC DIRECTOR Hospital Encounter [facility] Breast [facility] ([facility]) [address] [place] [phone] Abnormal mammogram Discharge Disposition: Discharge to home or self care from Last 3 Months Allergies Active Allergy Reactions Criticality Noted Date Comments Erythromycin Stomach upset Low 01/01/2011 Medications loratadine 10 mg capsule Take 1 tablet by mouth every morning 5 Active gmquz-1-zty-epa -dpa-fish oil 1,050-1,200 mg capsule Take 1 [...] 1 tablet (137 mcg total) by mouth guest room inspector before breakfast Active glucosamine sulfate (GLUCOSAMINE ORAL) [...] 1 tablet (137 mcg total) by mouth guest room inspector before breakfast 1 11/30/19 25 Discontinu ed(Alterna [...] on file Legal Sex Female 10:58 AM PHYSICAL THERAPIST CLINIC DIRECTOR Gender Identity Female 04/10/2021 1:17 PM CDT [...] 11/29/2024 3:25 PM CDT Plan of Treatment Not on file Medical Devices Implanted Type Area Accounting Practice Manager Device Identifier Shelf Expiration Date Model / Serial / Lot Bard Peripheral Vascular Ultraclip Bard 17ga 10cm 2 Trigger Permanent Ultrasound [id number] - [id number] Implanted:Qty: 1 on 10/03/2024 by Corine Campuzano MD at [facility] Right: Breast [employer] [id number] / / Bard Peripheral Vascular [place] 20ga 20cm 7cm Beaded Needle Breast Wire Localization [id number] - [id number] Implanted:Qty: 1 on 12/20/2024 at [facility] Right: Breast [employer] [id number] / / Procedures Procedure Name Priority Date/Time Associated Diagnosis Comments RADIOLOGIC EXAMINATION OF SURGICAL SPECIMEN Schedule Routine, Read Routine (OP Routine) 12/20/2024 1:10 PM CDT Encounter for other preprocedural examination SURGICAL PATHOLOGY Routine 12/20/2024 1: 02 PM CDT Ductal carcinoma in situ (DCIS) of right breast [place] AN PROCEDURE PLACEHOLDER Routine 12/20/2024 12:54 PM CDT [place] AN ELECTIVE SUPRAGLOTTIC AIRWAY Routine 12/20/2024 12:54 [...] Read Routine (OP Routine) 10/20/2024 12:46 PM PHYSICAL THERAPIST CLINIC DIRECTOR Ductal carcinoma in situ (DCIS) of right breast GUSTAVO POST CLIP PLACEMENT RIGHT Schedule Routine, Read Routine (OP Routine) 10/03/2024 1:40 PM PHYSICAL THERAPIST CLINIC DIRECTOR Abnormal mammogram US GUIDED BREAST BIOPSY RIGHT Schedule Routine, Read Routine (OP Routine) 10/03/2024 1:26 PM PHYSICAL THERAPIST CLINIC DIRECTOR Abnormal mammogram SURGICAL PATHOLOGY Routine 10/03/2024 1: 15 PM PHYSICAL THERAPIST CLINIC DIRECTOR Abnormal mammogram SCREENING MAMMOGRAM BILATERAL W GUSTAVO Schedule Routine, Read Routine (OP Routine) 08/25/2024 10:33 AM PHYSICAL THERAPIST CLINIC DIRECTOR Screening mammogram, encounter for from Last 3 [...] Margin) 12/20/2024 1:07 PM CDT Narrative PATHOLOGY [facility] - 12/26/2024 11:21 AM CDT EPIC results best viewed via link to PDF [facility] [place] [address] Note to Patients: This report may contain [...] Gender: F : 1960 (Age: 64) Address: [address] [place], [place] [address] Hospital #: [id number] Taken:12/20/2024 Received:12/20/2024 Reported: 12/26/2024 Patient Type: [facility] Service: Oncology Location: Physician(s): Tapan Pedersen M.D. [...] 0. 12/21/2024 10:18 PA(s): Mindy Conley MS, PRANAY(ASCP)CM CANCER CASE SUMMARY FOR DUCTAL CARCINOMA IN [...] Breast Biomarker Testing performed on Previous Case: [id number] Estrogen Receptor (ER): Positive 100% Positive Heather [...] Surgical Pathology and Flow Cytometry Departments at [facility] as part of an ongoing quality assurance advisor program and in compliance with federally mandated [...] Surgical Pathology and Flow Cytometry Departments of [facility]. It has not been cleared or approved by the U. S. Food and Drug Administration. IMAGES AND SCANNED DOCUMENTS, IF INCLUDED, ONLY VIEWABLE IN PDF VERSION OF REPORT us Jamila Horne MD PhD LAB PATHOLOGY ORDERABLES F inal Result PATHOLOGY [facility] 3rd Floor [place], [place] [phone] * [place] AN ELECTIVE SUPRAGLOTTIC AIRWAY, [place] AN PROCEDURE PLACEHOLDER (12/20/2024 12:54 PM CDT) Narrative Chelo Mckoy CRNA - 12/20/2024 12:54 PM CDT Chelo Mckoy CRNA 12/20/2024 12:54 PM Airway Patient location: OR Urgency: elective Indications for airway management: anesthesia Difficult airway: no Staff: Placed by: PARAGLIDING INSTRUCTOR: Chelo Mckoy CRNA Emergent airway documentation: Risks [...] comments: LMA placed atraumatically. Preop dentition unchanged us Kulwinder Rangel MD ANESTHESIA ORDERABLES Final Result [...] the entire procedure. Dr. Glen Sahni (diagnostic vice president of software engineering) also participated in this examination. Procedure Note [...] the entire procedure. Dr. Glen Sahni (diagnostic vice president of software engineering) also participated in this examination. IMPRESSION: Successful wire localization of the area of interest within the RIGHT breast using mammographic guidance. Electronically signed by: Serena Elise M.D. Jamila Horne MD PhD IMG MAMMO PROCEDURES Final Result * MRI Breast Bilateral W WO Contrast (10/20/2024 12:46 PM PHYSICAL THERAPIST CLINIC DIRECTOR) Anatomical Region Laterality Modality Breast Bilateral Magnetic Resonan ce 10/20/2024 1:38 PM PHYSICAL THERAPIST CLINIC DIRECTOR Impressions 10/20/2024 1:59 PM PHYSICAL THERAPIST CLINIC DIRECTOR 1. A 0.6 cm enhancing mass in [...] Jacklyn Mcwilliams M.D. Narrative 10/20/2024 1:59 PM PHYSICAL THERAPIST CLINIC DIRECTOR EXAMINATION: 1. MRI EXAMINATION OF THE BREASTS [...] Post Clip Placement Right (10/03/2024 1:40 PM PHYSICAL THERAPIST CLINIC DIRECTOR) Anatomical Region Laterality Modality Breast Right Mammography 10/03/2024 5:10 PM PHYSICAL THERAPIST CLINIC DIRECTOR Addenda Addendum by Corine Campuzano MD on 10/06/2024 8:01 AM PHYSICAL THERAPIST CLINIC DIRECTOR ADDENDUM: Pathology from biopsy of the right [...] will be discussed with the patient by [facility] or referring provider staff and will be separately documented in the medical record. Electronically signed by: Corine Campuzano M.D. Impressions 10/03/2024 5:10 PM PHYSICAL THERAPIST CLINIC DIRECTOR Successful core needle biopsy of the RIGHT breast. Pathology is pending. ASSESSMENT: Post Procedure Mammograms for Marker Placement Electronically signed by: Corine Campuzano M.D. Narrative 10/03/2024 5:10 PM PHYSICAL THERAPIST CLINIC DIRECTOR EXAMINATION: RIGHT BREAST CORE BIOPSY UTILIZING SONOGRAPHIC [...] Guided Breast Biopsy Right (10/03/2024 1:26 PM PHYSICAL THERAPIST CLINIC DIRECTOR) Anatomical Region Laterality Modality Breast Right Mammography 10/03/2024 5:10 PM PHYSICAL THERAPIST CLINIC DIRECTOR Addenda Addendum by Corine Campuzano MD on 10/06/2024 8:01 AM PHYSICAL THERAPIST CLINIC DIRECTOR ADDENDUM: Pathology from biopsy of the right [...] be discussed with the patient by Breast [facility] or referring provider staff and will be separately documented in the medical record. Electronically signed by: Corine Campuzano M.D. Impressions 10/03/2024 5:10 PM PHYSICAL THERAPIST CLINIC DIRECTOR Successful core needle biopsy of the RIGHT breast. Pathology is pending. ASSESSMENT: Post Procedure Mammograms for Marker Placement Electronically signed by: Corine Campuzano M.D. Narrative 10/03/2024 5:10 PM PHYSICAL THERAPIST CLINIC DIRECTOR EXAMINATION: RIGHT BREAST CORE BIOPSY UTILIZING SONOGRAPHIC [...] Final * Surgical pathology (10/03/2024 1:15 PM PHYSICAL THERAPIST CLINIC DIRECTOR) Tissue specimen (specimen) (Breast biopsy, needle core) 10/03/2024 1:15 PM PHYSICAL THERAPIST CLINIC DIRECTOR Comment:right breast 2:30 3 cm/fn, ultrasound biopsy, birads 4a. This is a 1.2 cm oval mass with slightly indistinct margins and calcifications which may represent a degenerating fibroadenoma, fibrocystic change, or less likely malignancy. Narrative PATHOLOGY [facility] - 10/05/2024 4:39 PM PHYSICAL THERAPIST CLINIC DIRECTOR EPIC results best viewed via link to PDF [facility] [place] [address] Note to Patients: This report may contain [...] Gender: F : 1960 (Age: 64) Address: [address] [place] [address] [place] [address] Hospital #: [id number] Taken:10/03/2024 Received:10/03/2024 Reported: 10/05/2024 Patient Type: [facility] Ancillary Service: UNKNOWN Location: Physician(s): Radha [...] is reviewed in consensus for quality assurance advisor. Danny Nevarez M.D. History: The patient is [...] after collection. Total fixation time= 8.0 hours. 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 The IHC results for ER (antibody SP1) and IL (antibody 1E2) were quantified and interpreted (positive vs negative) using the Heather score (total score range = 0 to 8; positive >2) (see: Mod Pathol 11:155, 1998; J Clin Oncol 17:1474, 1998; Mod Pathol 17:1545, 2004; Arch Pathol Lab Med 144:545, 2020). Pathway Her2 is a trademark of [employer] The IHC results for Pathway Her2 [...] proprietary polymer-based detection system and instrumentation by [employer] per boiler assistant operator's recommendation. The index was determined by manual [...] Surgical Pathology and Flow Cytometry Departments at [facility] as part of an ongoing quality assurance advisor program and in compliance with federally mandated [...] Surgical Pathology and Flow Cytometry Departments of [facility]. It has not been cleared or approved by the U. S. Food and Drug Administration. IMAGES AND SCANNED DOCUMENTS, IF INCLUDED, ONLY VIEWABLE IN PDF VERSION OF REPORT us Radha Webb NP LAB PATHOLOGY ORDERABLES F inal Result PATHOLOGY [facility] 3rd Floor [place], [place] [phone] * Screening Mammogram Bilateral W Gustavo (08/25/2024 10:33 AM PHYSICAL THERAPIST CLINIC DIRECTOR) Anatomical Region Laterality Modality Breast Bilateral Mammography Narrative 08/25/2024 2:36 PM PHYSICAL THERAPIST CLINIC DIRECTOR Mammogram Technique: Bilateral Digital Breast Tomosynthesis, Bilateral C-view 2D Screening mammogram. Views obtained: bilateral craniocaudal and bilateral mediolateral oblique. Computer Aided Detection was performed. Mammogram Findings: The present examination has been compared to prior imaging studies performed at [facility] on 04/22/2022 and 06/02/2023, and at [facility] on 03/25/2021. There are scattered areas [...] compared to prior imaging studies performed at [facility] on 04/22/2022 and 06/02/2023, and at [facility] on 03/25/2021. There are scattered areas [...] Most Recently Relevant to Health Maintenance Insurance [employer] H[employer] [facility] CHOICE PLUS [facility] HMO Care Teams Merchandise Planning Manager Relationship Specialty Start Date End Date Radha Webb NP [address] [phone] PCP - General Internal Medicine 07/26/24 Teetee Lindsey MD [address] [phone] Referring Physician Obstetrics and Gynecology 11/27/21
== END 2024-11-10 11:28 ==
PROVIDERS: Visit Provider Plastic Surgery
DX: L98.9 Disorder of the skin and subcutaneous tissue, unspecified (principal); H02.829 Cysts of unspecified eye, unspecified eyelid
CPT/HCPCS: 88305

== ENCOUNTER 2025-01-13 07:50 | Outpatient (CLI) | payer OTHER, SELFPAY ==
--- OUTSIDE RECORDS SUMMARY | 2025-01-13 07:56 | XMS_ITS | Clinical Summary ---
Author Organization [facility] Care Team Providers Care Electronics Production Supervisor Name Role Phone Unavailable Primary Care Provider Unavailabl e Social History Tobacco Use Types Packs/Day Years Used Date Smoking Tobacco: Never Assessed Comments Unknown Sex and Gender Information Value Date Recorded Sex Assigned at Not on file Legal Sex Female 12:08 PM INSURANCE COMPLIANCE ANALYST Gender Identity Not on file Sexual Orientation [...]
--- OUTSIDE RECORDS SUMMARY | 2025-01-13 07:56 | XMS_ITS | Encounter Summary ---
Author Organization [facility] Address [address] [place] [address] Phone Care Team Providers Care Office Professional Name Role Phone Teetee Lindsey MD Unavailable [phone] Radha Webb NP Primary Care Provider [phone] Reason for Visit * Reason Comments Health Maintenance * Diagnostic Imaging (Routine) - Closed Specialty Diagnoses / Procedures Referred By Contac t Referred To Contact Diagnoses Ductal carcinoma in situ (DCIS) of right breast Procedures Dexa Axial Skeleton Bone Density 1 or 2 Site Aft, Jamila Chris MD PhD [address] [place] [address] Phone: tel: fax: [facility] (All Locations) Referral ID Status Reason Start Date Expiration Date Visits Re quested Visits Authorized [id number] Closed 01/04/2025 02/03/2026 1 1 Encounter Details Date Type Department Care Team (Latest Contact Info) Description 01/12/2025 9:10 AM CDT Clinical Support [facility] Bone [facility] [address] [facility] [address] [place] [address] Postmenopausal (Primary Dx); Ductal carcinoma in situ (DCIS) of right breast Social History Tobacco Use Types Packs/Day Years [...] on file Legal Sex Female 10:58 AM FREIGHT FORWARDER Gender Identity Female 04/10/2021 1:17 PM CDT Sexual Orientation Straight 04/10/2021 1: 17 PM CDT documented as of this encounter Plan of Treatment Pending Results Name Type Priority Associated Diagnoses Date /Time Dexa Axial Skeleton Bone Density 1 or 2 Site Imaging Schedule Routine, Read Routine (OP Routine) Ductal carcinoma in situ (DCIS) of right breast 01/12/2025 9:21 AM CDT documented as of this encounter Visit Diagnoses Diagnosis Postmenopausal- Primary Asymptomatic postmenopausal status (age-related) (natural) Ductal carcinoma in situ (DCIS) of right breast documented in this encounter Care Teams Office Professional Relationship Specialty Start Date End Date Radha Webb NP [address] [address] PCP - General Internal Medicine 07/26/24 Teetee Lindsey MD [address] [address] Referring Physician Obstetrics and Gynecology 11/27/21 documented as of this encounter
--- OUTSIDE RECORDS SUMMARY | 2025-01-13 07:56 | XMS_ITS | Referral Summary ---
Author Organization [facility] Address [address] [place] [address] Care Team Providers Care Roofing Machine Tender Name Role Phone Teetee Lindsey MD Unavailable Radha Webb NP Primary Care Provider [phone] Encounters Date Type Department Care Team Description 01/12/2025 9:10 AM CDT Clinical Support [facility] [address] [facility] [address] [place] [address] Postmenopausal (Primary Dx); Ductal carcinoma in situ (DCIS) of right breast 01/06/2025 Telephone [facility] Advanced Medicine Radiation Oncology [address] [facility] [place] [address] Rm Cueto MD 01/04/2025 3:30 PM CDT Office Visit [facility] [address] [facility] Floor 8 [place] [phone] SaratJamila MD PhD Ductal carcinoma in situ (DCIS) of right breast (Primary Dx) 12/20/2024 12:30 PM CDT - 12/20/2024 2:00 PM CDT Surgery [facility] Operating [facility] [address] [place] [address] Jamila Horne MD PhD BIOPSY BREAST NEEDLE LOCALIZATION 12/20/2024 8:46 AM CDT - 12/20/2024 11:59 PM CDT Hospital Encounter [facility] ([facility]) [address] [place] [address] Encounter for other preprocedural examination Discharge Disposition: Discharge to home or self care 12/20/2024 6:45 AM CDT - 12/20/2024 11:59 PM CDT Hospital Encounter [facility] Breast [facility] ([facility]) [address] [place] [address] Encounter for other preprocedural examination Discharge Disposition: Discharge to home or self care 12/20/2024 12:35 PM CDT Anesthesia Event [facility] ([facility]) [address] [place] [address] Kulwinder Rangel MD Morrison, Lauren Michele, NP 12/20/2024 7:44 AM CDT - 12/20/2024 3:08 PM CDT Hospital Encounter [facility] ([facility]) [address] [place] [address] Aft, Jamila Chris MD PhD Ductal carcinoma in situ (DCIS) of right breast Discharge Disposition: Discharge to home or self care 11/25/2024 Telephone [facility] [address] [place] [phone] Jamila Horne MD PhD Scheduling Appointments 11/16/2024 Orders Only [facility] [address] [place] [address] 8 [place] [phone] Jamila Horne MD PhD Encounter for other preprocedural examination (Primary Dx) 11/14/2024 Telephone [facility] [address] [place] [address] 8 [place] [phone] Jamila Horne MD PhD Medical Question/Miscellaneous 11/11/2024 Telephone [facility] - Breast Imaging [address] [place] [address] 8 [place] [address] Jamila Horne MD PhD Medical Question/Miscellaneous 10/28/2024 Telephone [facility] [address] [facility] 8 [place] [address] Jamila Horne MD PhD 10/24/2024 3:00 PM NAVAL ARCHITECT Office Visit [facility] [address] [facility] 8 [place] [address] Jamila Horne MD PhD Ductal carcinoma in situ (DCIS) of right breast 10/20/2024 11:27 AM NAVAL ARCHITECT - 10/20/2024 11:59 PM NAVAL ARCHITECT Hospital Encounter [facility] Radiology [facility] ([facility]) [address] [place] [id number] Jamila Horne MD PhD Ductal carcinoma in situ (DCIS) of right breast Discharge Disposition: Discharge to home or self care from Last 3 Months Allergies Active Allergy Reactions Criticality Noted Date Comments Erythromycin Stomach upset Low 01/01/2011 Medications loratadine 10 mg capsule Take 1 tablet by mouth every morning 5 Active fzswb-0-fhs-epa -dpa-fish oil 1,050-1,200 mg capsule Take 1 [...] 1 tablet (137 mcg total) by mouth illustrator set before breakfast Active glucosamine sulfate (GLUCOSAMINE ORAL) Take 1 tablet/chew tab by mouth with lunch Active CALCIUM ORAL Take 1 tablet/chew tab by mouth with lunch Active docusate sodium (COLACE) 100 mg capsuleIndicati ons:constipatio n Take 1 capsule (100 mg total) by mouth 2 (two) times a day with a glass of water 8 capsule 5 Active oxyCODONE (ROXICODONE) 5 mg immediate release tabletIndicatio ns:Pain Take 1 tablet (5 mg total) by mouth every 4 (four) hours as needed for pain 5 tablet 5 Active anastrozole (ARIMIDEX) 1 mg tablet Take 1 tablet (1 mg total) by mouth daily 30 tablet 11 5 01/05/20 26 Active ibuprofen 200 mg tab/cap Take 2 tablet/capsul e (400 mg total) by mouth every 6 (six) hours as needed for pain 01/05/20 25 Discontinu ed(Therapy completed) acetaminophen (TYLENOL) 500 mg tabletIndicatio ns:Pain Take 1 tablet (500 mg total) by mouth every 6 (six) hours as needed for pain 01/05/20 25 Discontinu ed(Therapy completed) Active Problems Problem [...] on file Legal Sex Female 10:58 AM NAVAL ARCHITECT Gender Identity Female 04/10/2021 1:17 PM CDT [...] CDT Inhaled Oxygen Concentration - - Weight 108.5 kg (239 lb 3.2 oz) 01/04/2025 3:29 PM CDT Height 165.1 cm (5' 5 ) 11/29/2024 3:25 PM CDT Body Mass Index 39.8 11/29/2024 3:25 PM CDT Plan of Treatment Not on file Medical Devices Implanted Type Area Hospitality Manager Device Identifier Shelf Expiration Date Model / Serial / Lot Bard Peripheral Vascular Ultraclip Bard 17ga 10cm 2 Trigger Permanent Ultrasound [id number] - [id number] Implanted:Qty: 1 on 10/03/2024 by Corine Campuzano MD at [facility] Right: Breast Bard Peripheral Vascular [id number] / / Bard Peripheral Vascular Ghiatas 20ga 20cm 7cm Beaded Needle Breast Wire Localization [id number] - [id number] Implanted:Qty: 1 on 12/20/2024 at [facility] Right: Breast Bard Peripheral Vascular [id number] / / Procedures Procedure Name Priority Date/Time Associated Diagnosis Comments RADIOLOGIC EXAMINATION OF SURGICAL SPECIMEN Schedule Routine, Read Routine (OP Routine) 12/20/2024 1:10 PM CDT Encounter for other preprocedural examination SURGICAL PATHOLOGY Routine 12/20/2024 1: 02 PM CDT Ductal carcinoma in situ (DCIS) of right breast [place] AN PROCEDURE PLACEHOLDER Routine 12/20/2024 12:54 PM CDT [place] AN ELECTIVE SUPRAGLOTTIC AIRWAY Routine 12/20/2024 12:54 [...] Read Routine (OP Routine) 10/20/2024 12:46 PM NAVAL ARCHITECT Ductal carcinoma in situ (DCIS) of right breast SCREENING MAMMOGRAM BILATERAL W GUSTAVO Schedule Routine, Read Routine (OP Routine) 08/25/2024 10:33 AM NAVAL ARCHITECT Screening mammogram, encounter for from Last 3 [...] surgeon. Electronically signed by: Debbie Teran M.D. us Jamila Horne MD PhD IMG MAMMO PROCEDURES Final Result * Surgical pathology (12/20/2024 1:02 PM CDT) Tissue (Breast, lumpectomy) 12/20/2024 1:02 PM CDT Tissue specimen (specimen) (Breast Additional Margin) 12/20/2024 1:07 PM CDT Narrative PATHOLOGY [facility] - 12/26/2024 11:21 AM CDT EPIC results best viewed via link to PDF [facility] [place] [address] Note to Patients: This report may contain [...] Gender: F : 1960 (Age: 64) Address: [address] [place] [phone] Hospital #: [id number] Taken:12/20/2024 Received:12/20/2024 Reported: 12/26/2024 Patient Type: [facility] Service: Oncology Location: Physician(s): Tapan Pedersen M.D. [...] duct hyperplasia - Margins negative for DCIS [facility]/12/26/2024 11:21 By this signature, I attest that [...] 0. 12/21/2024 10:18 PA(s): Mindy Conley MS, PA([facility])CM CANCER CASE SUMMARY FOR DUCTAL CARCINOMA IN [...] Breast Biomarker Testing performed on Previous Case: [id number] Estrogen Receptor (ER): Positive 100% Positive Heather [...] Surgical Pathology and Flow Cytometry Departments at [facility] as part of an ongoing quality analyst/technical writer program and in compliance with federally mandated [...] Surgical Pathology and Flow Cytometry Departments of [facility]. It has not been cleared or approved by the U. S. Food and Drug Administration. IMAGES AND SCANNED DOCUMENTS, IF INCLUDED, ONLY VIEWABLE IN PDF VERSION OF REPORT Jamila Horne MD PhD LAB PATHOLOGY ORDERABLES F inal Result PATHOLOGY [facility] 3rd Floor [place], [place] [phone] * [place] AN ELECTIVE SUPRAGLOTTIC AIRWAY, [place] AN PROCEDURE PLACEHOLDER (12/20/2024 12:54 PM CDT) Chelo Buck CRNA - 12/20/2024 12:54 PM CDT Chelo Mckoy CRNA 12/20/2024 12:54 PM Airway Patient location: OR Urgency: elective Indications for airway management: anesthesia Difficult airway: no Staff: Placed by: MANAGER SURGICAL: Chelo Mckoy CRNA Emergent airway documentation: Risks [...] the entire procedure. Dr. Glen Sahni (diagnostic enrollment management vice president) also participated in this examination. Procedure [...] the entire procedure. Dr. Glen Sahni (diagnostic enrollment management vice president) also participated in this examination. IMPRESSION: Successful wire localization of the area of interest within the RIGHT breast using mammographic guidance. Electronically signed by: Serena Elise M.D. us Jamila Horne MD PhD IMG MAMMO PROCEDURES Final Result * MRI Breast Bilateral W WO Contrast (10/20/2024 12:46 PM NAVAL ARCHITECT) Anatomical Region Laterality Modality Breast Bilateral Magnetic Resonan ce 10/20/2024 1:38 PM NAVAL ARCHITECT Impressions 10/20/2024 1:59 PM NAVAL ARCHITECT 1. A 0.6 cm enhancing mass in [...] Jacklyn Mcwilliams M.D. Narrative 10/20/2024 1:59 PM NAVAL ARCHITECT EXAMINATION: 1. MRI EXAMINATION OF THE BREASTS [...] IMG MRI PROCEDURES Final R esult * Screening Mammogram Bilateral W Gustavo (08/25/2024 10:33 AM NAVAL ARCHITECT) Anatomical Region Laterality Modality Breast Bilateral Mammography Narrative 08/25/2024 2:36 PM NAVAL ARCHITECT Mammogram Technique: Bilateral Digital Breast Tomosynthesis, Bilateral C-view 2D Screening mammogram. Views obtained: bilateral craniocaudal and bilateral mediolateral oblique. Computer Aided Detection was performed. Mammogram Findings: The present examination has been compared to prior imaging studies performed at [facility] on 04/22/2022 and 06/02/2023, and at [facility] on 03/25/2021. There are scattered areas of [...] compared to prior imaging studies performed at [facility] on 04/22/2022 and 06/02/2023, and at [facility] on 03/25/2021. There are scattered areas of [...] Most Recently Relevant to Health Maintenance [facility] Care Teams Roofing Machine Tender Relationship Specialty Start Date End Date Radha Webb NP [address] [place] [address] PCP - General Internal Medicine 07/26/24 Teetee Lindsey MD [address] [address] Referring Physician Obstetrics and Gynecology 11/27/21
--- OUTSIDE RECORDS SUMMARY | 2025-01-13 07:56 | XMS_ITS | Clinical Summary ---
Author Organization [facility] Address [address] [place] [address] Care Team Providers Care Straw Baler Name Role Phone Teetee Lindsey MD Unavailable Radha Webb NP Primary Care Provider [phone]- [phone] Allergies Active Allergy Reactions Criticality Noted Date Comments Erythromycin Stomach upset Low 01/01/2011 Medications loratadine 10 mg capsule Take 1 tablet by mouth every morning 5 Active upnvq-3-jwv-epa -dpa-fish oil 1,050-1,200 mg capsule Take 1 [...] 1 tablet (137 mcg total) by mouth extractor operator helper before breakfast Active glucosamine sulfate (GLUCOSAMINE ORAL) [...] Description 01/12/2025 9:10 AM CDT Clinical Support [facility] [address] [facility] [address] [place] [address] Postmenopausal (Primary Dx); Ductal carcinoma in situ (DCIS) of right breast 01/06/2025 Telephone [facility] Advanced Medicine Radiation Oncology [address] [facility] Advanced Medicine [place] [address] Rm Cueto MD 01/04/2025 3:30 PM CDT Office Visit [facility] Surgery [facility] [facility] [address] [place] [phone] Jamila Horne MD PhD Ductal carcinoma in situ (DCIS) of right breast (Primary Dx) 12/20/2024 12:35 PM CDT Anesthesia Event [facility] ([facility]) [address] [place] [address] Kulwinder Rangel MD Morrison, Lauren Michele, NP 12/20/2024 12:30 PM CDT - 12/20/2024 2:00 PM CDT Surgery [facility] ([facility]) [address] [place] [address] Jamila Horne MD PhD BIOPSY BREAST NEEDLE LOCALIZATION 12/20/2024 8:46 AM CDT - 12/20/2024 11:59 PM CDT Hospital Encounter [facility] ([facility]) [address] [place] [address] Encounter for other preprocedural examination Discharge Disposition: Discharge to home or self care 12/20/2024 7:44 AM CDT - 12/20/2024 3:08 PM CDT Hospital Encounter [facility] ([facility]) [address] [place] [address] Jamila Horne MD PhD Ductal carcinoma in situ (DCIS) of right breast Discharge Disposition: Discharge to home or self care 12/20/2024 6:45 AM CDT - 12/20/2024 11:59 PM CDT Hospital Encounter [facility] ([facility]) [address] [place] [address] Encounter for other preprocedural examination Discharge Disposition: Discharge to home or self care 11/25/2024 Telephone [facility] Surgery [address] [place] [address] 8 [place] [phone] Jamila Horne MD PhD Scheduling Appointments 11/16/2024 Orders Only [facility] Surgery [address] [place] [address] 8 [place] [address] Coleen, Jamila Chris MD PhD Encounter for other preprocedural examination (Primary Dx) 11/14/2024 Telephone [facility] Surgery [facility] [address] [place] [address] Coleen, Jamila Chris MD PhD Medical Question/Miscellaneous 11/11/2024 Telephone [facility] [place] - Breast Imaging [address] [facility] 8 [place] [address] Jamila Horne MD PhD Medical Question/Miscellaneous 10/28/2024 Telephone [facility] Surgery [address] [place] [address] 8 [place] [address] Jamila Horne MD PhD 10/24/2024 3:00 PM FARM EQUIPMENT ENGINE MECHANIC Office Visit [facility] Surgery [address] [place] [phone] Coleen, Jamila Chris MD PhD Ductal carcinoma in situ (DCIS) of right breast 10/20/2024 11:27 AM FARM EQUIPMENT ENGINE MECHANIC - 10/20/2024 11:59 PM FARM EQUIPMENT ENGINE MECHANIC Hospital Encounter [facility] ([facility]) [address] [place] [phone] Coleen, Jamila Chris MD PhD Ductal carcinoma [...] on file Legal Sex Female 10:58 AM FARM EQUIPMENT ENGINE MECHANIC Gender Identity Female 04/10/2021 1:17 PM CDT [...] Screening 1980 Regular Well Visit/Exam 18-64 1980 Pneumococcal vaccine <65 (1 of 2 - PCV) 1981 Zoster Vaccine (1 of 2) 1981 Covid-19 Vaccine (3 - Pfizer risk series) 12/28/2020 11/30/2020, 11/09/2020 Influenza Vaccine (Season Ended) 2025 06/19/20 20 Breast Cancer Screening-Mammogram 08/25/2025 08/25/2024, 06/02/2023, 04/22/2022 Medical Devices Implanted Type Area Jacket Preparer Device Identifier Shelf Expiration Date Model / Serial / Lot Bard Peripheral Vascular Ultraclip Bard 17ga 10cm 2 Trigger Permanent Ultrasound [id number] - [id number] Implanted:Qty: 1 on 10/03/2024 by Corine Campuzano MD at [facility] Right: Breast Bard Peripheral Vascular [id number] / / Bard Peripheral Vascular Ghiatas 20ga 20cm 7cm Beaded Needle Breast Wire Localization [id number] - [id number] Implanted:Qty: 1 on 12/20/2024 at [facility] Right: Breast Bard Peripheral Vascular [id number] / / Procedures Procedure Name Priority Date/Time Associated Diagnosis Comments RADIOLOGIC EXAMINATION OF SURGICAL SPECIMEN Schedule Routine, Read Routine (OP Routine) 12/20/2024 1:10 PM CDT Encounter for other preprocedural examination SURGICAL PATHOLOGY Routine 12/20/2024 1: 02 PM CDT Ductal carcinoma in situ (DCIS) of right breast [place] AN PROCEDURE PLACEHOLDER Routine 12/20/2024 12:54 PM CDT [place] AN ELECTIVE SUPRAGLOTTIC AIRWAY Routine 12/20/2024 12:54 [...] Read Routine (OP Routine) 10/20/2024 12:46 PM FARM EQUIPMENT ENGINE MECHANIC Ductal carcinoma in situ (DCIS) of right breast SCREENING MAMMOGRAM BILATERAL W GUSTAVO Schedule Routine, Read Routine (OP Routine) 08/25/2024 10:33 AM FARM EQUIPMENT ENGINE MECHANIC Screening mammogram, encounter for from Last 3 [...] Margin) 12/20/2024 1:07 PM CDT Narrative PATHOLOGY [facility] - 12/26/2024 11:21 AM CDT EPIC results best viewed via link to PDF [facility] [place] [address] Note to Patients: This report may contain [...] Gender: F : 1960 (Age: 64) Address: [address] [place], [place] [address] Hospital #: [id number] Taken:12/20/2024 Received:12/20/2024 Reported: 12/26/2024 Patient Type: [facility] Service: Oncology Location: Physician(s): Tapan Pedersen [...] duct hyperplasia - Margins negative for DCIS [facility]/12/26/2024 11:21 By this signature, I attest that [...] 0. 12/21/2024 10:18 PA(s): Mindy Conley MS, PA([facility])CM CANCER CASE SUMMARY FOR DUCTAL CARCINOMA IN [...] Breast Biomarker Testing performed on Previous Case: [id number] Estrogen Receptor (ER): Positive 100% Positive Heather [...] Surgical Pathology and Flow Cytometry Departments at [facility] as part of an ongoing quality engineering manager program and in compliance with federally mandated [...] Surgical Pathology and Flow Cytometry Departments of [facility]. It has not been cleared or approved by the U. S. Food and Drug Administration. IMAGES AND SCANNED DOCUMENTS, IF INCLUDED, ONLY VIEWABLE IN PDF VERSION OF REPORT us Jamila Horne MD PhD LAB PATHOLOGY ORDERABLES F inal Result PATHOLOGY [facility] 3rd Floor [place], [place] [phone] * [place] AN ELECTIVE SUPRAGLOTTIC AIRWAY, [place] AN PROCEDURE PLACEHOLDER (12/20/2024 12:54 PM CDT) Narrative Chelo Mckoy CRNA - 12/20/2024 12:54 PM CDT Chelo Mckoy CRNA 12/20/2024 12:54 PM Airway Patient location: OR Urgency: elective Indications for airway management: anesthesia Difficult airway: no Staff: Placed by: ROUTEMAN: Chelo Mckoy CRNA Emergent airway documentation: Risks [...] the entire procedure. Dr. Glen Sahni (diagnostic resident services supervisor) also participated in this examination. Procedure Note [...] the entire procedure. Dr. Glen Sahni (diagnostic resident services supervisor) also participated in this examination. IMPRESSION: Successful wire localization of the area of interest within the RIGHT breast using mammographic guidance. Electronically signed by: Serena Elise M.D. us Jamila Horne MD PhD IMG MAMMO PROCEDURES Final Result * MRI Breast Bilateral W WO Contrast (10/20/2024 12:46 PM FARM EQUIPMENT ENGINE MECHANIC) Anatomical Region Laterality Modality Breast Bilateral Magnetic Resonan ce 10/20/2024 1:38 PM FARM EQUIPMENT ENGINE MECHANIC Impressions 10/20/2024 1:59 PM FARM EQUIPMENT ENGINE MECHANIC 1. A 0.6 cm enhancing mass in [...] Jacklyn Mcwilliams M.D. Narrative 10/20/2024 1:59 PM FARM EQUIPMENT ENGINE MECHANIC EXAMINATION: 1. MRI EXAMINATION OF THE BREASTS [...] Mammogram Bilateral W Gustavo (08/25/2024 10:33 AM FARM EQUIPMENT ENGINE MECHANIC) Anatomical Region Laterality Modality Breast Bilateral Mammography Narrative 08/25/2024 2:36 PM FARM EQUIPMENT ENGINE MECHANIC Mammogram Technique: Bilateral Digital Breast Tomosynthesis, Bilateral C-view 2D Screening mammogram. Views obtained: bilateral craniocaudal and bilateral mediolateral oblique. Computer Aided Detection was performed. Mammogram Findings: The present examination has been compared to prior imaging studies performed at [facility] on 04/22/2022 and 06/02/2023, and at [facility] on 03/25/2021. There are scattered areas [...] compared to prior imaging studies performed at [facility] on 04/22/2022 and 06/02/2023, and at [facility] on 03/25/2021. There are scattered areas [...] Most Recently Relevant to Health Maintenance Insurance [facility] HMO [facility] CHOICE PLUS [facility] HMO/PPO Address: [address] [address] [place] [address] [facility] H[facility] Care Teams Straw Baler Relationship Specialty Start Date End Date Radha Webb NP [address] [address] PCP - General Internal Medicine 07/26/24 Teetee Lindsey MD [address] [address] Referring Physician Obstetrics and Gynecology 11/27/21
--- OUTSIDE RECORDS SUMMARY | 2025-01-13 07:56 | XMS_ITS | Clinical Summary ---
Author Organization [facility] Address [address] [facility] [address] [place] [address] Care Team Providers Care Obstetrics Nurse Name Role Phone Radha Lorenzo FINANCIAL OFFICER-DRIVER MATERIAL HANDLER Primary Care Provider Source Comments [facility],non-owned Affiliates and Associated Physician Practices is amultiple site organization consisting of ambulatory clinics and hospital sitesin [place], [place], [place] and [place]. This disclosure is being madepursuant to the Care Everywhere program and may not contain all information available regarding this patient. Last updated 18.[facility] Allergies Active Allergy Reactions Criticality Noted Date Comments Cetirizine Hcl 07/23/2011 Erythromycin 01/01/2011 (?), (?), (?) Medications * Be aware that medications may not be up to date on this document. Alwaysverify current medications with the patient. azelastine-fluti casone (DYMISTA) 137-50 MCG/ACT nasal spray [place] 1 puff into the nose BID. 1 [...] on file Legal Sex Female 5:22 PM SENIOR JAVA WEB DEVELOPER Gender Identity Not on file Sexual Orientation Not on file Last Filed Vital Signs Vital Sign Reading Time Taken Comments Blood Pressure 128/80 09/14/2019 2:40 PM SENIOR JAVA WEB DEVELOPER Pulse 92 09/14/2019 2:40 PM SENIOR JAVA WEB DEVELOPER Temperature - - Respiratory Rate 12 05/08/2015 9:14 AM CDT Oxygen Saturation 95% 09/14/2019 2:40 PM SENIOR JAVA WEB DEVELOPER Inhaled Oxygen Concentration - - Weight 112.9 kg (249 lb) 09/14/2019 2:40 PM SENIOR JAVA WEB DEVELOPER Height 167.6 cm (5' 6 ) 09/14/2019 2:40 PM SENIOR JAVA WEB DEVELOPER Body Mass Index 40.19 09/14/2019 2:40 PM SENIOR JAVA WEB DEVELOPER Plan of Treatment Health Maintenance Due Date [...] Subscriber ID:Not on file (Home) Address: [address] [facility] [place] [address] Payer ID:Not on file Group ID:Not on file Type:Self Pay Address: [place], [place] [employer] Care Teams Obstetrics Nurse Relationship Specialty Start Date End Date Radha Lorenzo, FINANCIAL OFFICER-DRIVER MATERIAL HANDLER [address] [place] [address] PCP - General 11/14/19
--- OUTSIDE RECORDS SUMMARY | 2025-01-13 07:56 | XMS_ITS | Continuity of Care Document ---
Author Organization [facility] Address [address] [place] [address] Phone Care Team Providers Care Supervisor Benzene Refining Name Role Phone Karena Johnson Unavailable Unavailable Advance Directives Directive Yes / No Effective Date File Name No Information Encounters Encounter Description Practice Location Reason(s) For Visit Diagnoses Date Provider Providers Copied on Encounter [facility], [address], [place], [place], [id number], [place] tel:[phone] [facility] No Information Mar-1 0-200 3 Elizabeth Thurston. [address] , [address], [place], [address], [place]. tel:[phone] Family History Family Member Type Diagnosis Age [...]
[2025-01-13 18:54] LABS: Kit Draw Collected
== END 2025-01-13 07:51 | disposition home or self-care (01) ==
PROVIDERS: PCP Nurse Practitioner; Visit Provider Nurse Practitioner
DX: E06.3 Autoimmune thyroiditis (principal); E11.9 Type 2 diabetes mellitus without complications; E55.9 Vitamin D deficiency, unspecified; E78.5 Hyperlipidemia, unspecified
CPT/HCPCS: 36415

== ENCOUNTER 2025-03-16 02:21 | Day surgery (SDC) | payer OTHER, SELFPAY ==
[2025-02-27 13:10] VITALS: BMI 38.2
--- OUTSIDE RECORDS SUMMARY | 2025-03-16 02:27 | XMS_ITS | Clinical Summary ---
Author Organization [facility] Address [address] [place] [address] Care Team Providers Care Condenser Setter Name Role Phone Teetee Lindsey MD Unavailable [phone] Radha Webb NP Primary Care Provider [phone] Rm Cueto MD Unavailable Aft, Jamila Chris MD PhD Unavailable [phone] Allergies Active Allergy Reactions Criticality Noted Date Comments Erythromycin Stomach upset Low 01/01/2011 Medications loratadine 10 mg capsule Take 1 tablet by mouth every morning 5 Active dkluq-4-exa-epa -dpa-fish oil 1,050-1,200 mg capsule Take 1 [...] (METFORMIN ORAL) Take 1 tablet by mouth 2 (two) times a day Active azelastine-flut icasone 137-50 mcg/spray spray,non-aeros ol 1 spray as needed (allergies) 5 Active levothyroxine (SYNTHROID) 137 mcg tablet Take 125 mcg by mouth furniture restorer before breakfast Active glucosamine sulfate (GLUCOSAMINE ORAL) [...] 30 tablet 11 5 01/05/20 26 Active Active Problems Problem Noted Date Diagnosed Date Ductal carcinoma in situ (DCIS) of right breast 11/16/2024 Cancer Staging:Pathologic stage from 12/20/2024:Stage 0(pTis (DCIS), pN0, cM0, G2, ER+, MS: Not Assessed, HER2: Not Assessed) - Signed by Rm Cueto MD on 01/18/2025 Abnormal mammogram 04/12/2021 Hypothyroidism 01/14/2014 Overview (12/06/2016): HYPOTHYROIDISM NOS Vitamin D deficiency 01/14/2014 Overview (12/06/2016): Vitamin D deficiency Encounters Date Type Department Care Team Description 03/10/2025 1:46 PM CDT - 03/10/2025 11:59 PM CDT Hospital Encounter [facility] Radiation Oncology [facility] [place] [address] Rm Cueto MD Discharge Disposition: Discharge to home or self care 03/10/2025 Completion of Therapy [facility] Radiation Oncology [address] [place] [address] [place] [address] Rm Cueto MD 03/10/2025 Orders Only RAD ONC TREATMENTS Miscellaneous, Not In File 03/09/2025 12:46 PM CDT - 03/09/2025 11:59 PM CDT Hospital Encounter [facility] Radiation Oncology [address] [place] [address] Rm Cueto MD Discharge Disposition: Discharge to home or self care 03/09/2025 Orders Only RAD ONC TREATMENTS Miscellaneous, Not In File 03/08/2025 9:31 AM CDT - 03/08/2025 11:59 PM CDT Hospital Encounter [facility] Radiation Oncology [address] [place] [address] Rm Cueto MD Discharge Disposition: Discharge to home or self care 03/08/2025 Orders Only RAD ONC TREATMENTS Miscellaneous, Not In File 03/07/2025 1:42 PM CDT - 03/07/2025 11:59 PM CDT Hospital Encounter [facility] Radiation Oncology [address] [place] [address] Rm Cueto MD Discharge Disposition: Discharge to home or self care 03/07/[address] [facility] Radiation Oncology [address] [place] [address] Rm Cueto MD Ductal carcinoma in situ (DCIS) of right breast (Primary Dx) 03/07/2025 Orders Only RAD ONC TREATMENTS Miscellaneous, Not In File 03/06/2025 3:00 PM CDT - 03/06/2025 11:59 PM CDT Hospital Encounter [facility] Radiation Oncology [address] [place] [address] Rm Cueto MD Discharge Disposition: Discharge to home or self care 03/06/2025 Orders Only RAD ONC TREATMENTS Miscellaneous, Not In File 03/02/2025 9:45 PM CDT - 03/02/2025 11:59 PM CDT Hospital Encounter [facility] Radiation Oncology [address] [facility] [place] [address] Rm Cueto MD Discharge Disposition: Discharge to home or self care 02/23/2025 12:47 PM CDT - 02/23/2025 11:59 PM CDT Hospital Encounter [facility] Radiation Oncology [address] [place] [address] [place] [address] Rm Cueto MD Discharge Disposition: Discharge to home or self care 01/19/2025 Telephone [facility] Radiation Oncology [address] [place] [address] Sabi Maxwell RN 01/18/2025 9:00 AM CDT Consult [facility] Radiation Oncology [address] [place] [address] Rm Cueto MD Ductal carcinoma in situ (DCIS) of right breast 01/12/2025 9:10 AM CDT Clinical Support [facility] [address] [facility] [address] [place] [address] Postmenopausal (Primary Dx); Ductal carcinoma in situ (DCIS) of right breast 01/06/2025 Telephone [facility] Radiation Oncology [address] [place] [address] Rm Cueto MD 01/04/2025 3:30 PM CDT Office Visit [facility] [address] [facility] Floor [address] [place] [phone] Aft, Jamila Chris MD PhD Ductal carcinoma in situ (DCIS) of right breast (Primary Dx) 12/20/2024 12:35 PM CDT Anesthesia Event [facility] ([facility]) [address] [place] [address] Kulwinder Rangel MD Morrison, Lauren Michele, YEFRI 12/20/2024 12:30 PM CDT - 12/20/2024 2:00 PM CDT Surgery [facility] ([facility]) [address] [place] [address] Jamila Horne MD PhD BIOPSY BREAST NEEDLE LOCALIZATION 12/20/2024 8:46 AM CDT - 12/20/2024 11:59 PM CDT Hospital Encounter [facility] Breast [facility] ([facility]) [address] [place] [address] Encounter for other preprocedural examination Discharge Disposition: Discharge to home or self care 12/20/2024 7:44 AM CDT - 12/20/2024 3:08 PM CDT Hospital Encounter [facility] ([facility]) [address] [place] [address] Jamila Horne MD PhD Ductal carcinoma in situ (DCIS) of right breast Discharge Disposition: Discharge to home or self care 12/20/2024 6:45 AM CDT - 12/20/2024 11:59 PM CDT Hospital Encounter [facility] Breast [facility] ([facility]) [address] [place] [address] Encounter for other preprocedural examination Discharge Disposition: [...] facial growths TOOTH EXTRACTION 08/31/2024 - 08/30/2025 BREAST LUMPECTOMY Right Medical History Medical History Date Comments Hx Other Medical DNS surgery Disorder of thyroid Thyroid dise ase Hx Other Medical Claustrophobic; Comments: [facility] 04/25/2014 - Diabetes (HCC) Overweight Hypothyroidism Type [...] you have a drink containing alc ohol? 2-4 times a month 01/18/2025 Q2: How many drinks containi ng alcohol do you have on a typical day when you are drinking? 1 or 2 01/18/2025 Q3: How often do you have si x or more drinks on one occasion? Never 01/18/2025 Personal Safety Answer Date Recorded Have you ever been in or are you currently in a harmful physical or emotional relationship or is someone making you feel afraid or unsafe? Denies 12/20/2024 Comments No Sex and Gender Information Value Date Recorded Sex Assigned at Not on file Legal Sex Female 10:58 AM WOODWORKER HELPER Gender Identity Female 04/10/2021 1:17 PM CDT Sexual Orientation Straight 04/10/2021 1: 17 PM CDT Obstetrics History Para Term AB IAB SAB Ectopic Multiple Livin g Live Births 0 0 Last Filed Vital Signs Vital Sign Reading Time Taken Comments Blood Pressure 158/111 01/18/2025 9:09 AM CDT Pt denies ESPINAL, dizziness, blurred vision Pulse 89 01/18/2025 9:02 AM CDT Temperature 36.7 C (98.1 F) 01/18/2025 9:02 AM CDT Respiratory Rate 16 01/18/2025 9:02 AM CDT Oxygen Saturation 95% 12/20/2024 2:3 0 PM CDT Inhaled Oxygen Concentration - - Weight 109.1 kg (240 lb 8 oz) 03/07/2025 2:58 PM CDT Height 165.1 cm (5' 5) 01/18/2025 9:02 AM CDT Body Mass Index 40.02 01/18/2025 9:02 AM CDT Plan of Treatment Health Maintenance Due [...] risk series) 12/28/2020 11/30/2020, 11/09/2020 Influenza Vaccine (#1) 2025 06/19/2020 Breast Cancer Screening-Mammogram 08/25/2025 08/25/2024, 06/02/2023, 04/22/2022 Medical Devices Implanted Type Area Information Coder Device Identifier Shelf Expiration Date Model / Serial / Lot Bard Peripheral Vascular Ultraclip Bard 17ga 10cm 2 Trigger Permanent Ultrasound [id number] - [id number] Implanted:Qty: 1 on 10/03/2024 by Corine Campuzano MD at [facility] Right: Breast Bard Peripheral Vascular [id number] / / Bard Peripheral Vascular Ghiatas 20ga 20cm 7cm Beaded Needle Breast Wire Localization [id number] - [id number] Implanted:Qty: 1 on 12/20/2024 at [facility] Right: Breast Bard Peripheral Vascular [id number] / / Procedures Procedure Name Priority Date/Time Associated Diagnosis Comments RAD ONC ARIA SESSION SUMMARY 03/10/2025 2:20 PM CDT RAD ONC ARIA SESSION SUMMARY 03/09/2025 1:11 PM CDT RAD ONC ARIA SESSION SUMMARY 03/08/2025 10:08 AM CDT RAD ONC ARIA SESSION SUMMARY 03/07/2025 2:17 PM CDT RAD ONC ARIA SESSION SUMMARY 03/06/2025 4:46 PM CDT DEXA AXIAL SKELETON BONE DENSITY 1 OR MORE SITES Schedule Routine, Read Routine (OP Routine) 01/12/2025 9:21 AM CDT Ductal carcinoma in situ (DCIS) of right breast RADIOLOGIC EXAMINATION OF SURGICAL SPECIMEN Schedule Routine, Read Routine (OP Routine) 12/20/2024 1:10 PM CDT Encounter for other preprocedural examination SURGICAL PATHOLOGY Routine 12/20/2024 1: 02 PM CDT Ductal carcinoma in situ (DCIS) of right breast MS AN PROCEDURE PLACEHOLDER Routine 12/20/2024 12:54 PM CDT MS AN ELECTIVE SUPRAGLOTTIC AIRWAY Routine 12/20/2024 12:54 [...] AM CDT Encounter for other preprocedural examination SCREENING MAMMOGRAM BILATERAL W GUSTAVO Schedule Routine, Read Routine (OP Routine) 08/25/2024 10:33 AM WOODWORKER HELPER Screening mammogram, encounter for from Last 3 Months or Most Recently Relevant to Health Maintenance Results * RAD ONC ARIA SESSION SUMMARY (03/10/2025 2:20 PM CDT) Course Name C1_R_Breast _2024 ARIA Course Plan Date 02/24/2025 8:52 AM ARIA Elapsed Days 4 ARIA Treatment Start Date 03/06/2025 ARIA Treatment Site R_APBI_3000 ARIA Dose Given To Date (cGy) 3,000 ARIA Session Dosage Given (cGy) 600 ARIA Plan ID APBI R BREAST ARIA Fractions Treated 5 ARIA Prescribed Dose Per Fraction (cGy) 600 ARIA Prescribed Total Dose (cGy) 3,000 ARIA 03/10/2025 2:20 PM CDT us Not In File Miscellaneous RADIATION ONCOLOGY ORD ERABLES Final Result MANDI * RAD ONC ARIA SESSION SUMMARY (03/09/2025 1:11 PM CDT) Course Name C1_R_Breast _2024 ARIA Course Plan Date 02/24/2025 8:52 AM ARIA Elapsed Days 3 ARIA Treatment Start Date 03/06/2025 ARIA Treatment Site R_APBI_3000 ARIA Dose Given To Date (cGy) 2,400 ARIA Session Dosage Given (cGy) 600 ARIA Plan ID APBI R BREAST ARIA Fractions Treated 4 ARIA Prescribed Dose Per Fraction (cGy) 600 ARIA Prescribed Total Dose (cGy) 3,000 ARIA 03/09/2025 1:11 PM CDT us Not In File Miscellaneous RADIATION ONCOLOGY ORD ERABLES Final Result Performing Organization Address City/[facility]/ZIP Co de Phone Number MANDI * RAD ONC ARIA SESSION SUMMARY (03/08/2025 10:08 AM CDT) Course Name C1_R_Breast _2024 ARIA Course Plan Date 02/24/2025 8:52 AM ARIA Elapsed Days 2 ARIA Treatment Start Date 03/06/2025 ARIA Treatment Site R_APBI_3000 ARIA Dose Given To Date (cGy) 1,800 ARIA Session Dosage Given (cGy) 600 ARIA Plan ID APBI R BREAST ARIA Fractions Treated 3 ARIA Prescribed Dose Per Fraction (cGy) 600 ARIA Prescribed Total Dose (cGy) 3,000 ARIA 03/08/2025 10:0 8 AM CDT us Not In File Miscellaneous RADIATION ONCOLOGY ORD ERABLES Final Result Performing Organization Address [facility] de Phone Number ARIEddi * RAD ONC ARIA SESSION SUMMARY (03/07/2025 2:17 PM CDT) Course Name C1_R_Breast _2024 ARIA Course Plan Date 02/24/2025 8:52 AM ARIA Elapsed Days 1 ARIA Treatment Start Date 03/06/2025 ARIA Treatment Site R_APBI_3000 ARIA Dose Given To Date (cGy) 1,200 ARIA Session Dosage Given (cGy) 600 ARIA Plan ID APBI R BREAST ARIA Fractions Treated 2 ARIA Prescribed Dose Per Fraction (cGy) 600 ARIA Prescribed Total Dose (cGy) 3,000 ARIA 03/07/2025 2:17 PM CDT us Not In File Miscellaneous RADIATION ONCOLOGY ORD ERABLES Final Result Performing Organization Address [facility] de Phone Number ARIEddi * RAD ONC ARIA SESSION SUMMARY (03/06/2025 4:46 PM CDT) Course Name C1_R_Breast _2024 ARIA Course Plan Date 02/24/2025 8:52 AM ARIA Elapsed Days 0 ARIA Treatment Start Date 03/06/2025 ARIA Treatment Site R_APBI_3000 ARIA Dose Given To Date (cGy) 600 ARIA Session Dosage Given (cGy) 600 ARIA Plan ID APBI R BREAST ARIA Fractions Treated 1 ARIA Prescribed Dose Per Fraction (cGy) 600 ARIA Prescribed Total Dose (cGy) 3,000 ARIA 03/06/2025 4:46 PM CDT us Not In File Miscellaneous RADIATION ONCOLOGY ORD ERABLES Final Result Performing Organization Address [facility] Co de Phone Number MANDI * Dexa Axial Skeleton Bone Density 1 or 2 Site (01/12/2025 9:21 AM CDT) Anatomical Region Laterality Modality Body N/A Radiographic Jennie ging Narrative 01/13/2025 2:52 PM CDT Patient Name: Cody Gutierrez Date of : 1960 Date of scan: 01/12/2025 Bone mineral density was performed on a [employer] Discovery Densitometer. Based on machine cross-calibration and precision studies the least significant changes of this densitometer is 0.024 g/cm2 at the spine, 0.020 g/cm2 at the total proximal femur, and 0.014g/cm2 at the forearm. HISTORY: This is a 64 y.o. postmenopausal female with a history of breast cancer, thyroid disease, and vitamin D deficiency. She reports that she has never smoked. She has never used smokeless tobacco. Currently on treatment with calcium, vitamin D, and thyroid hormone and current complaint of back pain and leg pain. INDICATIONS: Menopause status, vitamin D deficiency, and family history of osteoporosis. FINDINGS: BONE MINERAL DENSITY OF THE LUMBAR SPINE Bone Mineral Density (BMD) of the lumbar spine was measured from L1-L4 and the average density was calculated to be 1.015 gm/cm2. This corresponds to a T-score (standard deviations from the mean of young adults) of -0.3. There is no previous study available for comparison. BONE MINERAL DENSITY OF THE PROXIMAL FEMUR Bone Mineral Density (BMD) of the left hip total was found to be 0.957 gm/cm2. This corresponds to a T-score standard deviations from the mean of young adults of 0.1. Femoral neck is 0.741 gm/cm2 with a T-score (standard deviations from the mean of young adults) of -1.0. There is no previous study available for comparison. SUMMARY: Bone mineral density is near the young adult normal mean with no increased risk for fracture. ADDITIONAL COMMENTS: Postmenopausal Women and Men Over 50: Diagnostic criteria: Osteoporosis: BMD at or below -2.5 T-score; Osteopenia (low bone mass): BMD between -1.0 and -2.5 T-score. If the patient has a history of a fragility fracture, a fracture that occurred with trauma equivalent to a fall from a standing position or less, then the diagnosis is osteoporosis regardless of bone density. The history and data sections of the bone mineral density scan were prepared by Radha Mark)([facility])who is accredited by the International Society of Clinical Densitometry. The overall patient assessment and scan interpretation were performed by Estrella Ahuja M.D. who is certified by the International Society of Clinical Densitometry. [id number] Jamila Horne MD PhD [facility] DXA PROCEDURES Final R esult * Radiologic Examination of Surgical Specimen (12/20/2024 [...] Margin) 12/20/2024 1:07 PM CDT Narrative PATHOLOGY [facility] - 12/26/2024 11:21 AM CDT EPIC results best viewed via link to PDF [facility] Surgical [place] [address] Note to Patients: This report may contain [...] details. SURGICAL PATHOLOGY REPORT FINAL Patient Name: CODY GUTIERREZ Gender: F : 1960 (Age: 64) Address: [address] [place] [id number] Hospital #: [id number] Taken:12/20/2024 Received:12/20/2024 Reported: 12/26/2024 [facility] Service: Oncology Location: Physician(s): Tapan Pedersen [...] duct hyperplasia - Margins negative for DCIS [facility]/12/26/2024 11:21 By this signature, I attest [...] 0. 12/21/2024 10:18 PA(s): Mindy Conley MS, PA([facility])CM CANCER CASE SUMMARY FOR DUCTAL CARCINOMA IN [...] Breast Biomarker Testing performed on Previous Case: [id number] Estrogen Receptor (ER): Positive 100% Positive Heather [...] Surgical Pathology and Flow Cytometry Departments at [facility] as part of an ongoing quality control systems manager program and in compliance with federally [...] Surgical Pathology and Flow Cytometry Departments of [facility]. It has not been cleared or approved by the U. S. Food and Drug Administration. IMAGES AND SCANNED DOCUMENTS, IF INCLUDED, ONLY VIEWABLE IN PDF VERSION OF REPORT us Jamila Horne MD PhD LAB PATHOLOGY ORDERABLES F inal Result PATHOLOGY [facility] 3rd Floor [place], [place] [phone] * MS AN ELECTIVE SUPRAGLOTTIC AIRWAY, MS AN PROCEDURE PLACEHOLDER (12/20/2024 12:54 PM CDT) Narrative Chelo Mckoy CRNA - 12/20/2024 12:54 PM CDT Chelo Mckoy CRNA 12/20/2024 12:54 PM Airway Patient location: OR Urgency: elective Indications for airway management: anesthesia Difficult airway: no Staff: Placed by: WET CHAR CONVEYOR TENDER: Chelo Mckoy CRNA Emergent airway documentation: Risks [...] the entire procedure. Dr. Glen Sahni (diagnostic co founder and president) also participated in this examination. Procedure [...] the entire procedure. Dr. Glen Sahni (diagnostic co founder and president) also participated in this examination. IMPRESSION: Successful wire localization of the area of interest within the RIGHT breast using mammographic guidance. Electronically signed by: Serena Elise M.D. us Jamila Horne MD PhD IMG MAMMO PROCEDURES Final Result * Screening Mammogram Bilateral W Gustavo (08/25/2024 10:33 AM WOODWORKER HELPER) Anatomical Region Laterality Modality Breast Bilateral Mammography Narrative 08/25/2024 2:36 PM WOODWORKER HELPER Mammogram Technique: Bilateral Digital Breast Tomosynthesis, Bilateral C-view 2D Screening mammogram. Views obtained: bilateral craniocaudal and bilateral mediolateral oblique. Computer Aided Detection was performed. Mammogram Findings: The present examination has been compared to prior imaging studies performed at [facility] on 04/22/2022 and 06/02/2023, and at [facility] on 03/25/2021. There are scattered areas of [...] compared to prior imaging studies performed at [facility] on 04/22/2022 and 06/02/2023, and at [facility] on 03/25/2021. There are scattered areas of [...] Most Recently Relevant to Health Maintenance Insurance [facility] HMO BY [facility] HMO/PPO Address: [facility] [id number] [place] [address] [facility] CHOICE [facility]US [facility] H[facility]/PPO Address: [address] [address] [place] [address] [facility] HMO Care Teams Condenser Setter Relationship Specialty Start Date End Date Radha Webb NP [address] [facility] [address] [place] [address] PCP - General Internal Medicine 07/26/24 Teetee Lindsey MD [address] [facility] [address] [place] [address] Referring Physician Obstetrics and Gynecology 11/27/21 Rm Cueto MD [address] [facility] [address] [place], [place] [phone] Radiation Oncologist Radiation Oncology 01/18/25 Aft, Jamila Chris MD PhD [address] [place], [place] [phone] Surgeon Surgical Oncology 01/18/25
--- OUTSIDE RECORDS SUMMARY | 2025-03-16 02:27 | XMS_ITS | Referral Summary ---
Author Organization [facility] Address [address] [place] [address] Care Team Providers Care Estimator And Drafter Name Role Phone Teetee Lindsey MD Unavailable [phone] Radha Webb NP Primary Care Provider [phone] Rm Cueto MD Unavailable Aft, Jamila Chris MD PhD Unavailable [phone] Encounters Date Type Department Care Team Description 03/10/2025 Completion of Therapy [facility] Advanced [facility] Radiation Oncology [address] [place] [address] Rm Cueto MD 03/10/2025 Orders Only RAD ONC TREATMENTS Miscellaneous, Not In File 03/10/2025 1:46 PM CDT - 03/10/2025 11:59 PM CDT Hospital Encounter [facility] Radiation Oncology [address] [place] [address] Rm Cueto MD Discharge Disposition: Discharge to home or self care 03/09/2025 Orders Only RAD ONC TREATMENTS Miscellaneous, Not In File 03/09/2025 12:46 PM CDT - 03/09/2025 11:59 PM CDT Hospital Encounter [facility] Radiation Oncology [address] [place] [address] Rm Cueto MD Discharge Disposition: Discharge to home or self care 03/08/2025 Orders Only RAD ONC TREATMENTS Miscellaneous, Not In File 03/08/2025 9:31 AM CDT - 03/08/2025 11:59 PM CDT Hospital Encounter [facility] Radiation Oncology [address] [place] [address] Rm Cueto MD Discharge Disposition: Discharge to home or self care 03/07/2025 OTV [facility] Radiation Oncology [address] [place] [address] Rm Cueto MD Ductal carcinoma in situ (DCIS) of right breast (Primary Dx) 03/07/2025 Orders Only RAD ONC TREATMENTS Miscellaneous, Not In File 03/07/2025 1:42 PM CDT - 03/07/2025 11:59 PM CDT Hospital Encounter [facility] Radiation Oncology [address] [place] [address] Rm Cueto MD Discharge Disposition: Discharge to home or self care 03/06/2025 Orders Only RAD ONC TREATMENTS Miscellaneous, Not In File 03/06/2025 3:00 PM CDT - 03/06/2025 11:59 PM CDT Hospital Encounter [facility] Radiation Oncology [address] [place] [address] Rm Cueto MD Discharge Disposition: Discharge to home or self care 03/02/2025 9:45 PM CDT - 03/02/2025 11:59 PM CDT Hospital Encounter [facility] Radiation Oncology [address] [place] [address] Rm Cueto MD Discharge Disposition: Discharge to home or self care 02/23/2025 12:47 PM CDT - 02/23/2025 11:59 PM CDT Hospital Encounter [facility] Medicine Radiation Oncology [address] [facility] [place] [address] Rm Cueto MD Discharge Disposition: Discharge to home or self care 01/19/2025 Telephone [facility] Radiation Oncology [address] [facility] [place] [address] Sabi Maxwell RN 01/18/2025 9:00 AM CDT Consult [facility] Radiation Oncology [address] [facility] [place] [address] Rm Cueto MD Ductal carcinoma in situ (DCIS) of right breast 01/12/2025 9:10 AM CDT Clinical Support [facility] [address] [facility] [address] [place] [address] Postmenopausal (Primary Dx); Ductal carcinoma in situ (DCIS) of right breast 01/06/2025 Telephone [facility] Radiation Oncology [facility] [place] [address] Rm Cueto MD 01/04/2025 3:30 PM CDT Office Visit [facility] Surgery [facility] Floor [address] [place] [address] Jamila Horne MD PhD Ductal carcinoma in situ (DCIS) of right breast (Primary Dx) 12/20/2024 12:30 PM CDT - 12/20/2024 2:00 PM CDT Surgery [facility] Operating [facility] [address] [place] [address] Jamila Horne MD PhD BIOPSY BREAST NEEDLE LOCALIZATION 12/20/2024 8:46 AM CDT - 12/20/2024 11:59 PM CDT Hospital Encounter [facility] Breast Imaging [facility] [address] [place] [address] Encounter for other preprocedural examination Discharge Disposition: Discharge to home or self care 12/20/2024 6:45 AM CDT - 12/20/2024 11:59 PM CDT Hospital Encounter [facility] ([facility]) [address] [place] [address] Encounter for other preprocedural examination Discharge Disposition: Discharge to home or self care 12/20/2024 12:35 PM CDT Anesthesia Event [facility] Operating Room [facility] ([facility]) [address] [place] [address] Kulwinder Rangel MD Morrison, Lauren Michele, YEFRI 12/20/2024 7:44 AM CDT - 12/20/2024 3:08 PM CDT Hospital Encounter [facility] Operating Room [facility] ([facility]) [address] [place] [address] Aft, Jamila Chris MD PhD Ductal carcinoma in situ (DCIS) of right breast Discharge Disposition: Discharge to home or self care from Last 3 Months Allergies Active Allergy Reactions Criticality Noted Date Comments Erythromycin Stomach upset Low 01/01/2011 Medications loratadine 10 mg capsule Take 1 tablet by mouth every morning 5 Active kxtdo-6-wqv-epa -dpa-fish oil 1,050-1,200 mg capsule Take 1 [...] mcg tablet Take 125 mcg by mouth entry manager before breakfast Active glucosamine sulfate (GLUCOSAMINE ORAL) [...] 12/20/2024:Stage 0(pTis (DCIS), pN0, cM0, G2, ER+, ME: Not Assessed, HER2: Not Assessed) - Signed [...] on file Legal Sex Female 10:58 AM CVOR NURSE Gender Identity Female 04/10/2021 1:17 PM CDT [...] 01/18/2025 9:02 AM CDT Plan of Treatment Not on file Medical Devices Implanted Type Area Distributing Clerk Device Identifier Shelf Expiration Date Model / Serial / Lot Bard Peripheral Vascular Ultraclip Bard 17ga 10cm 2 Trigger Permanent Ultrasound [id number] - [id number] Implanted:Qty: 1 on 10/03/2024 by Corine Campuzano MD at [facility] Right: Breast Bard Peripheral Vascular [id number] / / Bard Peripheral Vascular Ghiatas 20ga 20cm 7cm Beaded Needle Breast Wire Localization [id number] - [id number] Implanted:Qty: 1 on 12/20/2024 at [facility] Right: Breast Bard Peripheral Vascular [id number] / / Procedures Procedure Name Priority Date/Time [...] carcinoma in situ (DCIS) of right breast ME AN PROCEDURE PLACEHOLDER Routine 12/20/2024 12:54 PM CDT ME AN ELECTIVE SUPRAGLOTTIC AIRWAY Routine 12/20/2024 12:54 [...] Read Routine (OP Routine) 08/25/2024 10:33 AM CVOR NURSE Screening mammogram, encounter for from Last 3 Months or Most Recently Relevant to Health Maintenance Results * RAD ONC ARIA SESSION SUMMARY (03/10/2025 2:20 PM CDT) Course Name C1_R_Breast ARIA Course Plan Date 02/24/2025 8:52 AM [...] ORD ERABLES Final Result Performing Organization Address City/[facility]/ZIP Co de Phone Number ARIEddi * RAD ONC ARIA SESSION SUMMARY (03/09/2025 1:11 PM CDT) Course Name C1_R_Breast ARIA Course Plan Date 02/24/2025 8:52 AM [...] Miscellaneous RADIATION ONCOLOGY ORD ERABLES Final Result ARIA * RAD ONC ARIA SESSION SUMMARY (03/08/2025 10:08 AM CDT) Course Name C1_R_Breast ARIA Course Plan Date 02/24/2025 8:52 AM [...] ORD ERABLES Final Result Performing Organization Address City/[facility] Co de Phone Number ARIA * RAD ONC ARIA SESSION SUMMARY (03/07/2025 2:17 PM CDT) Course Name C1_R_Breast ARIA Course Plan Date 02/24/2025 8:52 AM [...] ORD ERABLES Final Result Performing Organization Address [facility] de Phone Number ARIA * RAD ONC ARIA SESSION SUMMARY (03/06/2025 [...] Miscellaneous RADIATION ONCOLOGY ORD ERABLES Final Result ARIA * Dexa Axial Skeleton Bone Density 1 or 2 Site (01/12/2025 9:21 AM CDT) Anatomical Region Laterality Modality Body N/A Radiographic Jennie ging Narrative 01/13/2025 2:52 PM CDT Patient Name: Francine Gutierrez Date of : 1960 Date of scan: 01/12/2025 Bone mineral density was performed on a Expreem Discovery Densitometer. Based on machine cross-calibration and [...] mineral density scan were prepared by Radha Mark)([facility])who is accredited by the International Society of Clinical Densitometry. The overall patient assessment and scan interpretation were performed by Estrella Ahuja M.D. who is certified by the International Society of Clinical Densitometry. [id number] Jamila Horne MD PhD IMG DXA PROCEDURES Final R esult * Radiologic [...] Margin) 12/20/2024 1:07 PM CDT Narrative PATHOLOGY [facility] - 12/26/2024 11:21 AM CDT EPIC results best viewed via link to PDF [facility] [place] [address] Note to Patients: This report may contain [...] Gender: F : 1960 (Age: 64) Address: [address] [place], [place] [address] Hospital #: [id number] Taken:12/20/2024 Received:12/20/2024 Reported: 12/26/2024 Patient [facility]: [facility] Service: Oncology Location: Physician(s): Tapan Pedersen M.D. [...] duct hyperplasia - Margins negative for DCIS [facility]/12/26/2024 11:21 By this signature, I attest that [...] 0. 12/21/2024 10:18 PA(s): Mindy Conley MS, PRANAY([facility])CM CANCER CASE SUMMARY FOR DUCTAL CARCINOMA IN [...] Breast Biomarker Testing performed on Previous Case: [id number] Estrogen Receptor (ER): Positive 100% Positive Heather [...] [facility] as part of an ongoing cloth tester quality program and in compliance with federally mandated [...] ORDERABLES F inal Result PATHOLOGY [facility] 3rd Floor [place], [place] [phone] * ME AN ELECTIVE SUPRAGLOTTIC AIRWAY, ME AN PROCEDURE PLACEHOLDER (12/20/2024 12:54 PM CDT) Narrative Chelo Mckoy CRNA - 12/20/2024 12:54 PM CDT Chelo Mckoy CRNA 12/20/2024 12:54 PM Airway Patient location: OR Urgency: elective Indications for airway management: anesthesia Difficult airway: no Staff: Placed by: PC NETWORK TECHNICIAN: Chelo Mckoy CRNA Emergent airway documentation: Risks [...] the entire procedure. Dr. Glen Sahni (diagnostic radiology practitioner assistant) also participated in this examination. Procedure Note [...] the entire procedure. Dr. Glen Sahni (diagnostic radiology practitioner assistant) also participated in this examination. IMPRESSION: Successful wire localization of the area of interest within the RIGHT breast using mammographic guidance. Electronically signed by: Serena Elise M.D. Jamila Horne MD PhD IMG MAMMO PROCEDURES Final Result * Screening Mammogram Bilateral W Gustavo (08/25/2024 10:33 AM CVOR NURSE) Anatomical Region Laterality Modality Breast Bilateral Mammography Narrative 08/25/2024 2:36 PM CVOR NURSE Mammogram Technique: Bilateral Digital Breast Tomosynthesis, Bilateral C-view 2D Screening mammogram. Views obtained: bilateral craniocaudal and bilateral mediolateral oblique. Computer Aided Detection was performed. Mammogram Findings: The present examination has been compared to prior imaging studies performed at [facility] on 04/22/2022 and 06/02/2023, and at [facility] on 03/25/2021. There are scattered areas [...] Hospital on 04/22/2022 and 06/02/2023, and at [facility] on 03/25/2021. There are scattered areas [...] Most Recently Relevant to Health Maintenance Insurance [facility] HMO [facility] CHOICE PLUS [facility] H[facility]/PPO Address: [address] [address] [place] [address] [facility] H[facility] Care Teams Estimator And Drafter Relationship Specialty Start Date End Date Radha Webb NP [address] [facility] [address] [place], [place] [id number] PCP - General Internal Medicine 07/26/24 Teetee Lindsey MD [address] [facility] [address] [place] [address] Referring Physician Obstetrics and Gynecology 11/27/21 Rm Cueto MD [address] [facility] [address] [place] [address] Radiation Oncologist Radiation Oncology 01/18/25 Aft, Jamila Chris MD PhD [address] [place] [address] Surgeon Surgical Oncology 01/18/25
--- OUTSIDE RECORDS SUMMARY | 2025-03-16 02:27 | XMS_ITS ---
Author Organization [facility] Address [address] [place] [address] Care Team Providers Care Sales Special Agent Name Role Phone Teetee Lindsey MD Unavailable [phone] Radha Webb NP Primary Care Provider [phone] Rm Cueto MD Unavailable Aft, Jamila Chris MD PhD Unavailable [phone] Active Problems Problem Noted Date Diagnosed Date Ductal carcinoma in situ (DCIS) of right breast 11/16/2024 Cancer Staging:Pathologic stage from 12/20/2024:Stage 0(pTis (DCIS), pN0, cM0, G2, ER+, [place]: Not Assessed, HER2: Not Assessed) - Signed by Rm Cueto MD on 01/18/2025 Abnormal mammogram 04/12/2021 Hypothyroidism 01/14/2014 Overview (12/06/2016): HYPOTHYROIDISM NOS Vitamin D deficiency 01/14/2014 Overview (12/06/2016): Vitamin D deficiency Current Treatment and Therapy Plans No current plan information found. Past Treatment and Therapy Plans No past plan information found. Current Radiation Episodes * Radiation Oncology - Radiation Therapy - December 2024Overview* First Treatment Date Latest Treatment Date Treatment Site Technique Goal Episode Provider 03/06/2025 03/10/2025 Rm Cueto MD Treatment Courses* Course C1_R_Breast_202403/06/2025 - 03/10/2025 Treatment Period Fraction Dose Fractions Total Dose Plans Planned APBI R BREAST 03/06/2025 - 03/10/2025 600 5 / 3,000 Reference Points Delivered R_APBI_3000 03/06/2025 - 03/10/2025 3,000
--- OUTSIDE RECORDS SUMMARY | 2025-03-16 02:27 | XMS_ITS | Clinical Summary ---
Author Organization [facility] Care Team Providers Care Speech Writer Name Role Phone Unavailable Primary Care Provider Unavailabl e Social History Tobacco Use Types Packs/Day Years Used Date Smoking Tobacco: Never Assessed Comments Unknown Sex and Gender Information Value Date Recorded Sex Assigned at Not on file Legal Sex Female 12:08 PM BACKROOM ASSOCIATE Gender Identity Not on file Sexual Orientation [...]
--- OUTSIDE RECORDS SUMMARY | 2025-03-16 02:27 | XMS_ITS | Continuity of Care Document ---
Author Organization [facility] Address [address] [place] [address] Phone Care Team Providers Care Road Production General Manager Name Role Phone Karena Johnson Unavailable Unavailable Advance Directives Directive Yes / No Effective Date File Name No Information Encounters Encounter Description Practice Location Reason(s) For Visit Diagnoses Date Provider Providers Copied on Encounter [facility], [address], [place], [place], [id number], [place] tel:[phone] [facility] No Information Mar-1 0-200 3 Elizabeth Thurston. [address] , [address], [place], [address], [place]. tel:[phone] Family History Family Member Type Diagnosis Age At Onset No Information Payers Payer name Insurance type Covered alliance party ID Authoriza tion(s) No Information Social [...]
--- OUTSIDE RECORDS SUMMARY | 2025-03-16 02:27 | XMS_ITS | Clinical Summary ---
Author Organization [facility] Address [address] [place] [address] Care Team Providers Care Motel Clerk Name Role Phone Radha Lorenzo TERRITORY SALES PROFESSIONAL-BAGGAGE PORTER HEAD Primary Care Provider Source Comments [facility],non-owned Affiliates and Associated Physician Practices is amultiple site organization consisting of ambulatory clinics and hospital sitesin [place], [place], [place] and [place]. This disclosure is being madepursuant to the Care Everywhere program and may not contain all information available regarding this patient. Last updated 18.[facility] Allergies Active Allergy Reactions Criticality Noted Date Comments Cetirizine Hcl 07/23/2011 Erythromycin 01/01/2011 (?), (?), (?) Medications * Be aware that medications may not be up to date on this document. Alwaysverify current medications with the patient. azelastine-fluti casone (DYMISTA) 137-50 MCG/ACT nasal spray [place] 1 puff into the nose BID. 1 bottles 1 06/23/2017 Active loratadine (CLARITIN) 10 MG tablet Take 10 mg by mouth DAILY. 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 Metabolic syndrome X 09/14/2019 Nasal congestion 05/08/2015 Chronic sinusitis 01/01/2011 Encounters Date Type Department Care Team Description 02/07/2025 Travel from Last 3 Months Social History Tobacco Use Types Packs/Day Years Used Date Smoking Tobacco: Never Smokeless Tobacco: Never Alcohol Use Standard Drinks/Week Comments Yes 0 (1 standard drink = 0.6 oz pur e alcohol) Comments Unknown Sex and Gender Information Value Date Recorded Sex Assigned at Not on file Legal Sex Female 5:22 PM CITY DETECTIVE Gender Identity Not on file Sexual Orientation Not on file Last Filed Vital Signs Vital Sign Reading Time Taken Comments Blood Pressure 128/80 09/14/2019 2:40 PM CITY DETECTIVE Pulse 92 09/14/2019 2:40 PM CITY DETECTIVE Temperature - - Respiratory Rate 12 05/08/2015 9:14 AM CDT Oxygen Saturation 95% 09/14/2019 2:40 PM CITY DETECTIVE Inhaled Oxygen Concentration - - Weight 112.9 kg (249 lb) 09/14/2019 2:40 PM CITY DETECTIVE Height 167.6 cm (5' 6) 09/14/2019 2:40 PM CITY DETECTIVE Body Mass Index 40.19 09/14/2019 2:40 PM CITY DETECTIVE Plan of Treatment Upcoming Encounters Date Type Department Care Team (Late st Contact Info) Description 06/30/2025 8:50 AM CDT Office Visit [facility] - Dermatology [address] [place] [address], [place] [address] Alley Hollis MD [address] [place] [address] [address] [place] [address] Health Maintenance Due Date Last Done Comments COLOGUARD (AGES 45-75) - COL ON CA SCREENING 1960 COLON MONITORING 1960 COLONOSCOPY - COLON CA SCREENING 1960 CT COLONOGRAPHY - COLON CA SCREENING 1960 Colorectal Cancer Screening 1960 FIT - COLON CA SCREENING 1960 FLEX SIG - COLON CA SCREENING 1960 LIPID TESTING 1960 MAMMOGRAM 1960 HIV SCREENING 1977 HEPATITIS C SCREENING 03/23/1980 DTAP/TDAP/TD VACCINES (1 - Tdap) 1981 PAP SMEAR 1983 PNEUMOCOCCAL VACCINE 50+ (1 of 1 - PCV) 2012 ZOSTER VACCINE (1 of 2) 2012 SCREENING FOR DIABETES 09/14/2019 Respiratory Syncytial Virus (RSV) Vaccine Pt: or over 60 yrs (1 - Risk 60-74 years 1-dose series) 2022 COVID-19 VACCINE (1 - 2023-2 5 season) 2024 DEPRESSION SCREENING 08/31/2024 INFLUENZA VACCINE (#1) 2025 HEPATITIS B VACCINE Aged Out No [...] patient's age to complete this topic Insurance AETNA AETNA Care Teams Motel Clerk Relationship Specialty Start Date End Date Radha Lorenzo, TERRITORY SALES PROFESSIONAL-BAGGAGE PORTER HEAD [address] [place] [address] [place] [address] PCP - General 11/14/19
[2025-03-16 06:51] VITALS: BP 152/92; PULSE 111; RESP 16; TEMP 36.4; O2SAT 98
[2025-03-16] MEDS: LACTATED RINGERS 1,000 ML 150 ML IV CONT (07:04)
--- NOTE | 2025-03-16 07:37 | P.PNAN_ITS ---
Anes - Initial Pre Proc Eval Procedure: Operation Date: 03/16/25 08:00 Proposed Procedures p Screening Colonoscopy - Brendan Boone MD Date/Time: 03/16/25 07:37 Surgeon: Brendan Boone MD Pre Op Diagnosis: Encounter for screening for malignant neoplasm of Patient Data Age: 64 Gender: F Height: 1.65 m Weight: 106.6 kg Last Vital Signs Temp 97.5 F L 03/16/25 06:51 Pulse 111 H 03/16/25 06:51 Resp 16 03/16/25 06:51 BP 152/92 H 03/16/25 06:51 Pulse Ox 98 03/16/25 06:51 O2 Del Method Room Air 03/16/25 06:51 Allergies Allergy/AdvReac Type Severity Reaction Status Date / Time erythromycin base Allergy Severe Gastrointestinal Verified 03/16/25 06:49 Upset Home Medications ?Medication ?Instructions ?Recorded ?Confirmed ?Type cetirizine 10 mg tablet (24Hour 10 mg PO DAILY 10/25/19 03/16/25 History Allergy) omega-3 fatty acids 1,000 mg 1,000 mg PO DAILY 10/25/19 03/16/25 History capsule (Fish Oil Concentrate) multivitamin (Daily Multi-Vitamin 1 tablet PO DAILY 11/16/20 03/16/25 History tablet) apple cider vinegar 300 mg tablet 480 mg PO .QD 07/21/22 03/16/25 History vitamin E (dl, acetate) 180 mg 180 mg PO DAILY 07/21/22 03/16/25 History (400 unit) capsule antiarthritic combination no.2 900 200 mg PO .daily 02/24/23 03/16/25 History mg tablet (glucosamine-chondroitin) azelastine 137 mcg-fluticasone 50 1 spray intranasal BID PRN allergy 10/21/24 02/27/25 History mcg/spray nasal spray symptoms inulin 1.5 gram chewable tablet 1.5 g PO DAILY 10/21/24 03/16/25 History pantoprazole 40 mg tablet,delayed 40 mg PO QAM #90 tabs 12/08/24 03/16/25 Rx release levothyroxine 125 mcg tablet 125 mcg PO DAILY #90 tabs 02/27/25 03/16/25 Rx (Synthroid) metformin 500 mg tablet,extended 500 mg PO .COMPLEX #270 tabs 02/27/25 03/16/25 Rx release 24 hr Laboratory Tests 03/16/25 07:01 POC Capillary Glucose 129 H mg/dl (65-105) Patient hx anesthesia problems: none Family hx anesthesia problems: none Results Review: All pre-operative results and documents have been reviewed as part of the pre- operative evaluation. [facility] Past Medical History Medical History Allergies Abnormal Pap smear of cervix 11/16/20 ASCUS HPV neg Fatty liver Acid reflux Gallstones Gregory's disease Surgical History Surgical History History of nasal surgery History of tonsillectomy History of appendectomy Family History Family History Sibling Family history of thyroid disease Family history of migraine headaches Hypertension Asthma Grandparent Family history of thyroid disease Diabetes mellitus, Onset Age: 73 Hypertension Mother Diabetes mellitus Hypertension Cerebrovascular accident Father Hypertension, Onset Age: 74 Malignant neoplasm of prostate, Onset Age: 74 Alcohol abuse Social History Social History Smoking status: Never smoker Second hand tobacco smoke exposure: Yes Alcohol intake: current Drinks per week: 2 Substance use: never Substance use type: does not use Lack of Transportation: No Lack of Food: Never True Current Housing: I Have Housing Concerned About Future Housing: No Difficulty Paying Gas/Electric Bills: No Difficulty Paying for Meds: No Currently Unemployed: No Education: Master's Degree or Higher Difficulty w/ Childcare or Family Care: No Living arrangements: with family Additional living arrangements comments: and Mother Occupation/Education: retired Gender identity (if verbalized by the patient): Female Sexual Orientation (if Verbalized by the Patient): Straight or Heterosexual Spiritual care concerns: No Agree to blood products: Yes Anes - Eval Final PreProcedure Day of Procedure 03/16/25 07:37 Patient weight: obese Lungs: normal air movement Airway: Mallampati scale class II and special considerations (Missing bottom R tooth. ) Neurological: alert and oriented Last oral intake: >/= 8 hours ASA classification: III Emergent: no Anesthetic plan: proceed Anesthesia type and monitoring: general GIVS and standard monitoring Results Review: All pre-operative results and documents have been reviewed as part of the pre- operative evaluation. DM,, hypothyroidism, BMI 39. Informed Consent: The patient's anesthetic plan and its attendant risks and benefits were discussed with the patient/family/POA. Questions were solicited and answers provided to the satisfaction of the patient/family/POA.
--- NOTE | 2025-03-16 07:48 | PM.IMHP ---
H&P: HPI History of Present Illness Date/Time: 03/16/25 07:48 Chief Complaint: Screening colonoscopy Narrative: This is the patient's second colonoscopy. There are no GI symptoms and there is no family history of colorectal cancer. Review of Systems Review of Systems: All systems reviewed & are unremarkable except as noted in HPI and below PMFSH Past Medical History Medical History Allergies Abnormal Pap smear of cervix 11/16/20 ASCUS HPV neg Fatty liver Acid reflux Gallstones Gregory's disease Surgical History Surgical History History of nasal surgery History of tonsillectomy History of appendectomy Family History Family History Sibling Family history of thyroid disease Family history of migraine headaches Hypertension Asthma Grandparent Family history of thyroid disease Diabetes mellitus, Onset Age: 73 Hypertension Mother Diabetes mellitus Hypertension Cerebrovascular accident Father Hypertension, Onset Age: 74 Malignant neoplasm of prostate, Onset Age: 74 Alcohol abuse Social History Social History Smoking status: Never smoker Second hand tobacco smoke exposure: Yes Alcohol intake: current Drinks per week: 2 Substance use: never Substance use type: does not use Lack of Transportation: No Lack of Food: Never True Current Housing: I Have Housing Concerned About Future Housing: No Difficulty Paying Gas/Electric Bills: No Difficulty Paying for Meds: No Currently Unemployed: No Education: Master's Degree or Higher Difficulty w/ Childcare or Family Care: No Living arrangements: with family Additional living arrangements comments: and Mother Occupation/Education: retired Gender identity (if verbalized by the patient): Female Sexual Orientation (if Verbalized by the Patient): Straight or Heterosexual Spiritual care concerns: No Agree to blood products: Yes Meds Home Medications and Allergies Home Medications ?Medication ?Instructions ?Recorded ?Confirmed ?Type cetirizine 10 mg tablet (24Hour 10 mg PO DAILY 10/25/19 03/16/25 History Allergy) omega-3 fatty acids 1,000 mg 1,000 mg PO DAILY 10/25/19 03/16/25 History capsule (Fish Oil Concentrate) multivitamin (Daily Multi-Vitamin 1 tablet PO DAILY 11/16/20 03/16/25 History tablet) apple cider vinegar 300 mg tablet 480 mg PO .QD 07/21/22 03/16/25 History vitamin E (dl, acetate) 180 mg 180 mg PO DAILY 07/21/22 03/16/25 History (400 unit) capsule antiarthritic combination no.2 900 200 mg PO .daily 02/24/23 03/16/25 History mg tablet (glucosamine-chondroitin) azelastine 137 mcg-fluticasone 50 1 spray intranasal BID PRN allergy 10/21/24 02/27/25 History mcg/spray nasal spray symptoms inulin 1.5 gram chewable tablet 1.5 g PO DAILY 10/21/24 03/16/25 History pantoprazole 40 mg tablet,delayed 40 mg PO QAM #90 tabs 12/08/24 03/16/25 Rx release levothyroxine 125 mcg tablet 125 mcg PO DAILY #90 tabs 02/27/25 03/16/25 Rx (Synthroid) metformin 500 mg tablet,extended 500 mg PO .COMPLEX #270 tabs 02/27/25 03/16/25 Rx release 24 hr Allergies Allergy/AdvReac Type Severity Reaction Status Date / Time erythromycin base Allergy Severe Gastrointestinal Verified 03/16/25 06:49 Upset Vital Signs Vital Signs - 24 hr 03/16/25 06:51 Temperature 97.5 F L Pulse Rate 111 H Respiratory Rate 16 Blood Pressure 152/92 H Pulse Oximetry 98 Oxygen Delivery Room Air Exam Const: General: cooperative and healthy appearing Resp: Effort & Inspection: normal respiratory effort and able to speak in complete sentences Auscultation: clear to auscultation bilaterally Cardio: Rate: regular rate Rhythm: regular rhythm GI: Inspection: normal to inspection GI Palp: No No hepatosplenomegaly present Auscultation: normal bowel sounds Rectal Exam: deferred Skin: General skin exam: normal color Psych: Appearance: grossly normal Mental Status: mental status grossly normal Assessment and Plan Assessment and plan (1) Screening for colon cancer: Code(s): Z12.11 - Encounter for screening for malignant neoplasm of colon Status: Acute Assessment and Plan: The patient is deemed a good candidate for the procedure. Consent signed. Will proceed.
[2025-03-16 08:16] VITALS: BP 132/92; PULSE 93; RESP 19; O2SAT 97
[2025-03-16 08:26] VITALS: BP 136/87; PULSE 76; RESP 18; O2SAT 98
[2025-03-16 08:36] VITALS: BP 141/88; PULSE 80; RESP 16; O2SAT 98
== END 2025-03-16 08:43 | disposition home or self-care (01) ==
PROVIDERS: PCP Nurse Practitioner; Referring Provider Nurse Practitioner; Visit Provider Internal Medicine Gastroenterology
PROC: 0DJD8ZZ Inspection of Lower Intestinal Tract, Via Natural or Artificial Opening Endoscopic (ICD-10-PCS; CPT 45378; principal; 2025-03-16 08:00)
DX: Z12.11 Encounter for screening for malignant neoplasm of colon (principal); Z79.84 Long term (current) use of oral hypoglycemic drugs
CPT/HCPCS: 45378; 82948; J2003; J2704; J7120